=== PATIENT | male | born 1965 | race Caucasian/White ===

== ENCOUNTER → 2016-09-01 | Outpatient (CLI) | payer BC ==
[2016-09-01 12:37] LABS: CHLORIDE,CL 107 mmol/L (98-110); SODIUM,NA 141 mmol/L (136-146)
== END ==
LOC: MW.CHFP 11:59
PROVIDERS: ATTEND Student in an Organized Health Care Education/Training Program
DX: I10 Essential (primary) hypertension (principal); E78.00 Pure hypercholesterolemia, unspecified; Z20.9 Contact with and (suspected) exposure to unspecified communicable disease
CPT/HCPCS: 36415; 80053; 80061; 80074

== ENCOUNTER 2016-11-12 08:53 | Day surgery (SDC) | payer BC ==
[~2016-11-12 08:53] MED LIST: Lactated Ringers 1,000 ML IV SCH; Sodium Chloride 0.9% 10 ML Syringe FLUSH PRN; Sodium Chloride 0.9% 2.5 ML Syringe FLUSH PRN
--- NOTE | 2016-11-12 10:54 | PCM.PREANE ---
Preanesthetic Assessment - Anesthesia/Transfusion/Family Hx Anesthesia History: Prior Anesthesia Without Reaction Family History of Anesthesia Reaction: No Transfusion History: No Prior Transfusion(s) - Review of Systems General: No Symptoms Pulmonary: No Symptoms Cardiovascular: No Symptoms Gastrointestinal: No symptoms Neurological: No Symptoms Other: Reports: None - Physical Assessment NPO Status Date: 11/11/16 O2 Sat by Pulse Oximetry: 95 Respiratory Rate: 14 Vital Signs: Last Vital Signs Temp 36.6 C 11/12/16 10:39 Pulse 63 11/12/16 10:39 Resp 14 11/12/16 10:39 BP 128/91 H 11/12/16 10:39 Pulse Ox 95 11/12/16 10:39 Height: 1.83 m Weight: 105.233 kg ASA Class: 2 Mental Status: Alert & Oriented x3 Airway Class: Mallampati = 2 Dentition: Reports: Missing Tooth/Teeth ROM/Head Extension: Full Lungs: Clear to auscultation, Normal respiratory effort Cardiovascular: Regular Rate, Regular Rhythm - Allergies Allergies/Adverse Reactions: Allergies Allergy/AdvReac Type Severity Reaction Status Date / Time No Known Allergies Allergy Verified 09/19/13 09:56 - Anesthesia Plan Pre-Op Medication Ordered: None - Acknowledgements Anesthesia Type Planned: MAC Pt an Appropriate Candidate for the Planned Anesthesia: Yes Alternatives and Risks of Anesthesia Discussed w Pt/Guardian: Yes Pt/Guardian Understands and Agrees with Anesthesia Plan: Yes PreAnesthesia Questionnaire HEENT History: Reports: Other (See Below) Other HEENT History: wears glasses Cardiovascular History: Reports: High Cholesterol, Hypertension Musculoskeletal History: Reports: Arthritis, Fracture, Gout Other Musculoskeletal History: 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 knee Endocrine/Metabolic History: Reports: Obesity/BMI 30+ - Past Surgical History Head Surgeries/Procedures: Reports: None Musculoskeletal Surgical History: Reports: ORIF (ankle), Other (See Below) ( hand lac with nerve tendon repair) Other Musculoskeletal Surgeries/Procedures:: surgical tx for fx left ankle, left thumb surgery with tendon repair - SUBSTANCE USE Smoking Status *Q: Former Smoker Tobacco Use Within Last Twelve Months: Cigarettes Recreational Drug Use History: No - HOME MEDS Home Medications: Home Meds Allopurinol [Zyloprim] 100 mg PO DAILY 11/09/16 [History] Hydrochlorothiazide 25 mg PO DAILY 11/09/16 [History] Multivitamin [Multivitamins] 1 tab PO DAILY 11/09/16 [History] Simvastatin [Zocor] 20 mg PO DAILY 11/09/16 [History] amLODIPine Besylate [Amlodipine Besylate] 10 mg PO DAILY 11/09/16 [History] - CURRENT (IN HOUSE) MEDS Current Meds: Current Medications Lactated Ringer's (Ringers, Lactated) 1,000 mls @ 125 mls/hr IV ASDIRECTED TINO Sodium Chloride (Saline Flush) 10 ml FLUSH ASDIRECTED PRN PRN Reason: Keep Vein Open Sodium Chloride (Saline Flush) 2.5 ml FLUSH ASDIRECTED PRN PRN Reason: Keep Vein Open
[2016-11-12] MEDS ORDERED: Lidocaine 2% 5 ML SDV ONE (10:56)
[2016-11-12] MEDS ORDERED: Midazolam 1 MG/ML 2 ML SDV ONE (10:57)
[2016-11-12] MEDS ORDERED: Propofol 200 MG/20 ML SDV ONE ×4 (10:57→12:32)
[2016-11-12] MEDS ORDERED: fentaNYL 100 MCG/2 ML SDV ONE (10:57)
--- NOTE | 2016-11-12 12:52 | PCM.OPNOTE ---
- General Post-Op/Procedure Note Date of Surgery/Procedure: 11/12/16 Operative Procedure(s): Screening colonoscopy Findings: 5cm mass at 30-35 cm, 3-4 cm mass at 20-25 cm and one small sessile lesion in descending colon at 40. Small 2-3 mm lesion adjacent to the largest mass. Pre Op Diagnosis: Screening colonoscopy Post-Op Diagnosis: Large polyp of the sigmoid colon x 2, descending colon polyp , sigmoid polyp Anesthesia Technique: MAC Primary Surgeon: Neha Zepeda Condition: Good
--- NOTE | 2016-11-12 13:05 | PCM48HPAN ---
Post Anesthesia Note - EVALUATION WITHIN 48HRS OF ANESTHETIC Vital Signs in Normal Range: Yes Patient Participated in Evaluation: Yes Respiratory Function Stable: Yes Airway Patent: Yes Cardiovascular Function Stable: Yes Hydration Status Stable: Yes Pain Control Satisfactory: Yes Nausea and Vomiting Control Satisfactory: Yes Mental Status Recovered: Yes
--- NOTE | 2016-11-12 13:05 | PCM.POSTAN ---
POST ANESTHESIA ASSESSMENT - MENTAL STATUS Mental Status: alert, oriented - RESPIRATORY Respiratory Status: respiratory rate WNL, airway patent, O2 saturation stable - CARDIOVASCULAR CV Status: pulse rate WNL, blood pressure stable - GASTROINTESTINAL GI Status: no symptoms - PAIN Pain Score: 0 - POST OP HYDRATION Hydration Status: adequate & stable
[2016-11-12 14:30] VITALS: BP 147/95
--- NOTE | 2016-11-13 01:46 | OR ---
SURGEON: KIAN BULLOCK MD DATE OF PROCEDURE: 11/12/2016 PREOPERATIVE DIAGNOSIS: Screening colonoscopy. POSTOPERATIVE DIAGNOSIS: Large sigmoid colon mass x2, descending colon polyp, sigmoid colon polyp. PROCEDURE PERFORMED: Colonoscopy and mass biopsy. ANESTHESIA: MAC. INSTRUMENT USED: Olympus colonoscope. EXTENT OF EXAM: To the cecum. PREPARATION: Good. LIMITATIONS: None. INDICATION FOR EXAMINATION: The patient is a 51-year-old male, who presents for his first time screening colonoscopy. His family history significant for mother who possibly had polyps removed in the past. He is otherwise asymptomatic. We discussed the procedure as well as expected perioperative course. We discussed the risks, including bleeding, infection, and damage to surrounding structures, including perforation. The patient verbalized understanding and wishes to proceed. PROCEDURE IN DETAIL: The patient was brought to the endoscopy suite and placed on a left lateral decubitus position. A time-out was completed verifying the patient's name, age, date of , allergies, and procedure to be performed. Monitored anesthesia care was induced and continuous oxygen was provided via nasal cannula throughout the procedure. After adequate sedation was achieved, a digital rectal exam was performed. This exam was within normal limits. A well lubricated colonoscope was then inserted into the rectum and advanced under direct visualization to the level of the cecum. The cecum was identified by both visual and anatomic landmarks. A photograph was taken of the cecal cap. The scope was then fully withdrawn while examining the color, texture, anatomy, and integrity mucosa from the cecum to the anal canal. The patient had several findings. He had a small sessile polyp within the descending colon. This was removed with a cold biopsy forceps and sent to pathology. It was apparent upon examination of the sigmoid colon that the patient had two large masses. Photographs were taken of these masses. One was noted between 30 and 35 cm. This was large and somewhat pedunculated. Using a hot snare, I was able to get around a large portion of the mass. An approximate 3 cm portion of this mass was able to be snared and cauterized. It was removed from the patient using a Heredia net. The scope was brought back into the patient's and I reexamined the area. It appeared hemostatic. There was a significant portion of the mass left at the base. Given its large size and concerning features, the decision was made to ink the area around this mass and await biopsy results. There were two more smaller polyps around this mass and one of them was biopsied and sent as sigmoid colon polyp. This was removed using a snare as well. At the 20-25 cm, I noted a similar appearing large mass. It was somewhat pedunculated, but had a broad base. Given that the patient would need to undergo either surgery and/or repeat colonoscopy with a colorectal surgeon, the decision was made to not attempt resection at this point in time. The scope was then brought into the rectum and retroflexed to allow visualization of the anal canal opening. This appeared normal. The scope was then straightened out and removed from the patient. The cecum to anus time was greater than 30 minutes. The patient was taken to the PACU in stable condition. A CEA level was drawn, which came back as 1.0. ENDOSCOPIC DIAGNOSIS: Two large sigmoid masses, sigmoid polyp, descending colon polyp. RECOMMENDATIONS: Will closely follow up on the patient's pathology results. Based on these findings, we will determine the next step in treatment. EVER RODRIGUEZ /[id number] EMILIO
== END 2016-11-12 13:50 | disposition home or self-care (01) ==
LOC: MW.SDS 08:53
PROVIDERS: ATTEND Surgery
PROC: 0DBM8ZZ Excision of Descending Colon, Via Natural or Artificial Opening Endoscopic (ICD-10-PCS; principal; 2016-11-12)
PROC: 0DBN8ZZ Excision of Sigmoid Colon, Via Natural or Artificial Opening Endoscopic (ICD-10-PCS; 2016-11-12)
DX: Z12.11 Encounter for screening for malignant neoplasm of colon (principal); D12.4 Benign neoplasm of descending colon; D12.5 Benign neoplasm of sigmoid colon; M19.90 Unspecified osteoarthritis, unspecified site; E78.5 Hyperlipidemia, unspecified; M10.9 Gout, unspecified; I10 Essential (primary) hypertension; E78.00 Pure hypercholesterolemia, unspecified; M17.11 Unilateral primary osteoarthritis, right knee; F17.210 Nicotine dependence, cigarettes, uncomplicated; E66.9 Obesity, unspecified; Z79.899 Other long term (current) drug therapy; Z98.890 Other specified postprocedural states; Z68.31 Body mass index [BMI] 31.0-31.9, adult
CPT/HCPCS: 36415; 45380; 45385; 82378; J2250; J3010; J7120; 88305; J2704

== ENCOUNTER 2017-05-03 10:37 | Inpatient (IN) | payer BC ==
[~2017-05-03 10:37] MED LIST changes: +Acetaminophen 1,000 MG in Premix Bag 1 BAG IV SCH; +Famotidine 20 MG/2 ML SDV IVPUSH SCH; +Ketorolac 30 MG/ML SDV IVPUSH SCH; -Lactated Ringers 1,000 ML IV SCH; +Midazolam 1 MG/ML 2 ML SDV ONE; +Ondansetron 4 MG/2 ML SDV ONE; +Propofol 200 MG/20 ML SDV ONE; +Ropivacaine 49.25 ML, Ketorolac 30 MG, EPINEPHrine 0.5 MG, cloNIDine 80 MCG in Sodium C... INJECT SCH; +Scopolamine 1.5 MG Transdermal Patch TRDERM SCH; -Sodium Chloride 0.9% 10 ML Syringe FLUSH PRN; -Sodium Chloride 0.9% 2.5 ML Syringe FLUSH PRN; +Tranexamic Acid 4,000 MG in Sodium Chloride 0.9% 100 ML IV SCH; +ceFAZolin 2 GM in Premix Bag 1 BAG IV SCH; +diphenhydrAMINE 50 MG/ML SDV ONE; +fentaNYL 100 MCG/2 ML SDV ONE; +oxyCODONE ER 20 MG TAB.ER PO SCH
[2017-05-03] MEDS: Lactated Ringers 1,000 ML IV SCH ×2 (10:59→23:40)
--- NOTE | 2017-05-03 11:46 | PCM.PREANE ---
Preanesthetic Assessment - Procedure Proposed Procedure: Right Total Knee Arthroplasty - Anesthesia/Transfusion/Family Hx Anesthesia History: Prior Anesthesia Without Reaction Family History of Anesthesia Reaction: No Transfusion History: No Prior Transfusion(s) Intubation History: Unknown - Review of Systems General: Other (Pain in lower extremeities) Pulmonary: No Symptoms (former smoker - 3 months ago) Cardiovascular: Other (HTN; Hyperlipidemia; ) Gastrointestinal: Other (GERD - intermittent) Neurological: Gait Disturbance (due to knee and ankle pains) - Physical Assessment NPO Status Date: 05/02/17 NPO Status Time: 23:00 O2 Sat by Pulse Oximetry: 94 Respiratory Rate: 16 Vital Signs: Last Vital Signs Temp 98.2 F 05/03/17 10:56 Pulse 82 05/03/17 10:56 Resp 16 05/03/17 10:56 BP 131/86 05/03/17 10:56 Pulse Ox 94 L 05/03/17 10:56 Height: 6 ft Weight: 262 lb ASA Class: 2 Mental Status: Alert & Oriented x3 Airway Class: Mallampati = 1 Dentition: Reports: Missing Tooth/Teeth (only a few lowers are present - recently pulled in anticipation of dentures next year) Thyro-Mental Finger Breadths: 3 Mouth Opening Finger Breadths: 3 (bearded, brush moustache) - Allergies Allergies/Adverse Reactions: Allergies Allergy/AdvReac Type Severity Reaction Status Date / Time No Known Allergies Allergy Verified 05/03/17 11:05 - Anesthesia Plan Pre-Op Medication Ordered: Other (per surgeon) - Acknowledgements Anesthesia Type Planned: Spinal Pt an Appropriate Candidate for the Planned Anesthesia: Yes Alternatives and Risks of Anesthesia Discussed w Pt/Guardian: Yes Pt/Guardian Understands and Agrees with Anesthesia Plan: Yes PreAnesthesia Questionnaire HEENT History: Reports: Other (See Below) Other HEENT History: wears glasses Cardiovascular History: Reports: High Cholesterol, Hypertension Gastrointestinal History: Reports: None Genitourinary History: Reports: None Musculoskeletal History: Reports: Arthritis, Fracture, Gout Other Musculoskeletal History: 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 knee, Endocrine/Metabolic History: Reports: Obesity/BMI 30+ - Past Surgical History Head Surgeries/Procedures: Reports: None GI Surgical History: Reports: Colonoscopy Musculoskeletal Surgical History: Reports: ORIF, Other (See Below) Other Musculoskeletal Surgeries/Procedures:: surgical tx for fx left ankle, left thumb surgery with tendon repair - SUBSTANCE USE Smoking Status *Q: Former Smoker Tobacco Use Within Last Twelve Months: Cigarettes Recreational Drug Use History: No - HOME MEDS Home Medications: Home Meds Allopurinol [Zyloprim] 100 mg PO DAILY 11/09/16 [History] Hydrochlorothiazide 25 mg PO DAILY 11/09/16 [History] Simvastatin [Zocor] 20 mg PO DAILY 11/09/16 [History] amLODIPine Besylate [Amlodipine Besylate] 10 mg PO DAILY 11/09/16 [History] - CURRENT (IN HOUSE) MEDS Current Meds: Current Medications Famotidine (Pepcid) 40 mg IVPUSH ONARRIVE TINO Stop: 05/03/17 14:01 Last Admin: 05/03/17 11:01 Dose: 40 mg Acetaminophen 1,000 mg/ Premix 100 mls @ 400 mls/hr IV ONARRIVE TINO Stop: 05/03/17 14:01 Last Admin: 05/03/17 11:04 Dose: 400 mls/hr Cefazolin Sodium/Dextrose 2 gm (/ Premix) 50 mls @ 100 mls/hr IV ONCALL TINO Stop: 05/03/17 14:01 Lactated Ringer's (Ringers, Lactated) 1,000 mls @ 100 mls/hr IV ASDIRECTED TINO Last Admin: 05/03/17 10:59 Dose: 100 mls/hr Tranexamic Acid 4,000 mg/ (Sodium Chloride) 140 mls @ 600 mls/hr IV ASDIRECTED TINO Stop: 05/03/17 14:01 Ropivacaine 49.25 ml/Ketorolac Tromethamine 30 mg/Epinephrine HCl 0.5 mg/ Clonidine HCl 80 mcg/ Sodium Chloride 100 mls @ 2,975.207 mls/hr INJECT ASDIRECTED TINO Stop: 05/03/17 14:01 Ketorolac Tromethamine (Toradol) 30 mg IVPUSH ONARRIVE TINO Stop: 05/03/17 14:01 Last Admin: 05/03/17 11:02 Dose: 30 mg Oxycodone HCl (Oxycontin) 20 mg PO ONARRIVE TINO Stop: 05/03/17 14:01 Last Admin: 05/03/17 10:59 Dose: 20 mg Scopolamine (Transderm-Scop) 1.5 mg TRDERM ONARRIVE TINO Last Admin: 05/03/17 10:59 Dose: 1.5 mg Discontinued Medications Diphenhydramine HCl (Benadryl) Confirm Administered Dose 50 mg .ROUTE .STK-MED ONE Stop: 05/03/17 10:08 Fentanyl (Sublimaze) Confirm Administered Dose 100 mcg .ROUTE .STK-MED ONE Stop: 05/03/17 10:09 Ropivacaine 49.25 ml/Ketorolac Tromethamine 30 mg/Epinephrine HCl 0.5 mg/ Clonidine HCl 80 mcg/ Sodium Chloride 100 mls @ 50 mls/min INJECT ASDIRECTED [facility] Stop: 05/03/17 14:01 Midazolam HCl (Versed 1 Mg/Ml) Confirm Administered Dose 2 mg .ROUTE .STK-MED ONE Stop: 05/03/17 10:09 Ondansetron HCl (Zofran) Confirm Administered Dose 4 mg .ROUTE .STK-MED ONE Stop: 05/03/17 10:08 Propofol (Diprivan 20 Ml) Confirm Administered Dose 800 mg .ROUTE .STK-MED ONE Stop: 05/03/17 10:08 Tranexamic Acid (Cyklokapron) Confirm Administered Dose 4,000 mg .ROUTE .STK- MED ONE Stop: 05/03/17 07:21
[2017-05-03] MEDS ORDERED: ePHEDrine 50 MG/ML SDV ONE (13:09)
[2017-05-03] MEDS ORDERED: Ondansetron 4 MG/2 ML SDV IV PRN (14:20)
[2017-05-03] MEDS ORDERED: HYDROmorphone 2 MG/ML Syringe IVPUSH PRN (14:20)
[2017-05-03] MEDS ORDERED: Aluminum Hydroxide/Magnesium Hydroxide/Simethicone Susp 30 ML Cup PO PRN (14:20)
[2017-05-03] MEDS ORDERED: Bisacodyl 10 MG Supp RECTAL PRN (14:20)
[2017-05-03] MEDS ORDERED: diphenhydrAMINE 25 MG Cap PO PRN (14:20)
--- NOTE | 2017-05-03 14:34 | PCM.OPNOTE ---
- General Post-Op/Procedure Note Date of Surgery/Procedure: 05/03/17 Operative Procedure(s): R TKA Post-Op Diagnosis: DJD R knee Anesthesia Technique: Moderate Sedation, Spinal Primary Surgeon: Phyllis Jorge Car Trimmer: Chandni Cosme Car Trimmer: Marin Gaspar EBAmna in mLs: 50 Condition: Good Free Text/Narrative:: tt=45 min #[id number] Intake & Output 05/02/17 05/03/17 05/03/17 22:59 06:59 14:59 Output Total 125 Balance -125
--- NOTE | 2017-05-03 15:35 | PCM.POSTAN ---
POST ANESTHESIA ASSESSMENT - MENTAL STATUS Mental Status: Alert, Oriented - RESPIRATORY Respiratory Status: Respiratory Rate WNL, Airway Patent, O2 Saturation Stable - CARDIOVASCULAR CV Status: Pulse Rate WNL, Blood Pressure Stable - GASTROINTESTINAL GI Status: No Symptoms - PAIN Pain Score: 0 (able to move feet and sense knee) - POST OP HYDRATION Hydration Status: Adequate & Stable
[2017-05-03] MEDS: Acetaminophen 1,000 MG in Premix Bag 1 BAG IV SCH ×2 (17:24→23:17)
[2017-05-03] MEDS: oxyCODONE 5 MG Tab PO PRN (18:14)
--- NOTE | 2017-05-03 19:15 | OR ---
SURGEON: Phyllis Jorge MD DATE OF PROCEDURE: 05/03/2017 PREOPERATIVE DIAGNOSIS: Degenerative joint disease, right knee, tricompartmental. POSTOPERATIVE DIAGNOSIS: Degenerative joint disease, right knee, tricompartmental. PROCEDURE: Right total knee arthroplasty using patient-specific instrumentation. RECYCLING CENTER OPERATOR: Chandni Cosme PA-C and Marin Gaspar PA-C. ANESTHESIA: Spinal with sedation. ESTIMATED BLOOD LOSS: 50 mL. TOURNIQUET TIME: 45 minutes. COMPLICATIONS: None. DVT PROPHYLAXIS: PAS boot and MARIBEL hose to the nonoperative leg. IMPLANTS USED: Flavia Persona femoral component size 12 standard (LPS), tibial component size J, 10 mm all-polyethylene articular surface, and 38 mm all-polyethylene patella. FINDINGS: Intraoperative finding showed severe tricompartmental degenerative joint disease with osteophyte formation. 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 No significant synovitis was found. BRIEF HISTORY: Garret is a 52-year-old male, who has had complaint of progressive right knee pain. He had failed conservative treatment. Due to his lack of response to conservative treatment, I did recommend surgical intervention. The risks and goals of procedure were discussed with the patient and documented preoperatively. He agreed to proceed. DESCRIPTION OF PROCEDURE: The patient was properly identified and brought to the operating room. The patient was then transferred from the operating room cart and placed on the operating table in a supine position. Anesthesia was administered by the anesthesia staff. After adequate anesthesia was obtained, a well-padded tourniquet was applied to the surgical lower extremity. Peters catheter was placed. The lower extremity was then prepped in standard fashion using ChloraPrep solution. It was then sterilely draped. A time-out was performed to ensure correct site and procedure. Preoperative antibiotics were given along with one gram of tranexamic acid IV. The surgical site had been marked preoperatively. An Esmarch was used to exsanguinate the right lower extremity and the tourniquet was inflated. An incision was made over the anterior aspect of the knee. The subcutaneous tissues were dissected down to the level of the fascia. A medial parapatellar approach to the knee was made. A portion of the infrapatellar fat pad was then excised. The distal femur was then exposed. The femoral patient-specific cutting guide was then placed. Pins were also placed. The distal femoral cutting block was placed and the distal femoral cut was made. Instrumentation was then removed. Both Whitesides' line and the epicondylar axis were then marked with electrocautery. The 4-in-1 cutting block was placed. This was placed in a slightly externally rotated position, which corresponded well with the previously drawn lines. The cutting guide was then pinned into position. An Yeison wing guide was used to check the depth of resection of our anterior condylar cut and it was felt that no notching would occur. The anterior condylar cut was then made followed by the posterior condylar cut. Both the posterior chamfer and anterior chamfer cuts were then made. The cutting block was then removed along with the excess bony remnants. We then turned our attention to the tibia. The anterior cruciate ligament and posterior cruciate ligament were released and a posterior cruciate ligament retractor was placed to allow the tibia to be pulled anteriorly. The tibial patient-specific guide was then placed on the proximal tibia. This fit anatomically. The pins were then placed. The proximal tibia cutting guide was then placed and screwed into position. The proximal tibial resection was then made with care being taken to protect the patellar tendon. The bony resection was then removed. The remainder of the medial and lateral meniscus were then excised. Care was taken to protect the popliteus tendon. The tibia was then sized to the appropriate size. The distal femur was then elevated. The posterior capsule was stripped off of the distal femur both medially and laterally. The posterior capsule along with the medial and lateral gutters were then injected with a standard mixture consisting of clonidine, epinephrine, Toradol, and Ropivacaine, unless any allergies were found preoperatively. The femoral component was then placed onto the distal femur in a slightly lateral position. This fit the femur well. A box cut was then made without difficulty. This was then removed. The tibial trial along with the polyethylene liner was then placed. The knee came easily into full extension and was stable to varus and valgus stressing both in full extension and flexion. Any additional releases were performed at this time. We then returned our attention to the patella. The patella was everted and towel clamps were used to hold the patella in position. It was resected to a 15 millimeter thickness. It was then sized to the appropriate size. It was prepared in the usual fashion after placing the predetermined size clamps. This was placed in a slightly superior and medial position. The clamp was then removed. The patellar trial button was placed. The knee was taken through a range of motion using the no-touch technique. The patella tracked centrally. A drop sol was then placed to check alignment. All instruments were then removed from the knee. The tibial sizer was then placed on the tibia. The tibia was prepared in the usual fashion using the reamer and broach. This was then removed. All bony surfaces were copiously irrigated with Pulsavac solution. They were then suctioned dry. Cement was prepared on the back table in the usual manner. Once it was prepared, the bone ends were again suctioned dry. The tibia was cemented into place first. This was malleted into position. Excess cement was then cleared. The femur was then placed in a similar manner. We placed the polyethylene trial into place and the knee was brought into full extension. An axial load was placed while keeping the knee in full extension. The patella button was also cemented into position and the clamp was used to hold this in place as the cement was allowed to cure. The wound was again copiously irrigated with saline solution using a Pulsavac engineering clerk. Following this 1 g of tranexamic acid was applied to the wound topically. After we had adequate curing of the cement, the knee was again taken through a range of motion. The size of the polyethylene was then determined. The polyethylene trial was then removed. The tibial tray was suctioned to make sure there was no remaining soft tissue or cement. Excess cement was cleared from around the edges of the prosthesis as well. The tourniquet was then deflated. We were able to observe for any excess bleeding and none was noted. Electrocautery was used to maintain hemostasis. An additional gram of tranexamic acid was given IV. The retractors were again placed and the predetermined polyethylene was then placed. This was locked into position without difficulty. The knee was again taken through a range of motion with no change from the prior exam. The fascial layer was closed with Number One Vicryl. The subcutaneous tissues were closed with 2-0 Vicryl. The skin was closed with nubia. Xeroform gauze was placed over the wound and a bulky dressing was applied. The patient was then awakened from anesthesia and transferred back to the operating room cart. They were brought to the recovery room in stable condition. All needle and sponge counts were correct. STEPHEN / MODL /[id number]
[2017-05-03] MEDS: Ketorolac 30 MG/ML SDV IVPUSH SCH (20:04)
[2017-05-03] MEDS: oxyCODONE ER 20 MG TAB.ER PO SCH (21:05)
[2017-05-03] MEDS: ceFAZolin 2 GM in Premix Bag 1 BAG IV SCH (21:05)
[2017-05-03] MEDS: Docusate Sodium 100 MG Cap PO SCH (21:05)
[2017-05-04] MEDS: Ketorolac 30 MG/ML SDV IVPUSH SCH (02:21)
[2017-05-04] MEDS ORDERED: Non-Formulary Medication 1 Each (Amlodipine 10 MG) PO SCH (09:00)
[2017-05-04] MEDS: Acetaminophen 500 MG Tab PO SCH ×4 (14:54→23:14)
[2017-05-04] MEDS: ceFAZolin 2 GM in Premix Bag 1 BAG IV SCH (14:55)
[2017-05-04] MEDS: Celecoxib 100 MG Cap PO SCH ×2 (14:56→20:11)
[2017-05-04] MEDS: Aspirin 325 MG Tab PO SCH ×2 (14:56→20:10)
[2017-05-04] MEDS: Hydrochlorothiazide 25 MG Tab PO SCH (14:56)
[2017-05-04] MEDS: Docusate Sodium 100 MG Cap PO SCH ×2 (14:56→20:11)
[2017-05-04] MEDS: Simvastatin 20 MG Tab PO SCH (14:57)
[2017-05-04] MEDS: oxyCODONE ER 20 MG TAB.ER PO SCH ×2 (14:57→20:12)
[2017-05-04] MEDS: Allopurinol 100 MG Tab PO SCH (14:57)
[2017-05-04] MEDS: Famotidine 20 MG Tab PO SCH (14:57)
[2017-05-04] MEDS ORDERED: Sodium Chloride 0.9% 10 ML Syringe FLUSH PRN (15:22)
[2017-05-04] MEDS ORDERED: Sodium Chloride 0.9% 2.5 ML Syringe FLUSH PRN (15:22)
[2017-05-04] MEDS: oxyCODONE 5 MG Tab PO PRN (16:04)
--- NOTE | 2017-05-04 17:39 | PCM.SURGPN ---
- General Info Date of Service: 05/04/17 Date of Surgery/Procedure: 05/03/17 POD#: 1 Functional Status: Reports: Pain Controlled, Tolerating Diet, Ambulating, Urinating - Review of Systems General: Reports: No Symptoms Pulmonary: Reports: No Symptoms Cardiovascular: Reports: No Symptoms Gastrointestinal: Reports: No Symptoms Systems Review Comment:: pt resting comfortably in bed pain controlled has been OOB ambulating no specific concerns today - Patient Data Vitals - Most Recent: Last Vital Signs Temp 98.2 F 05/04/17 05:00 Pulse 76 05/04/17 05:00 Resp 16 05/04/17 05:00 BP 132/76 05/04/17 05:00 Pulse Ox 93 L 05/04/17 05:00 Weight - Most Recent: 118.841 kg I&O - Last 24 Hours: Intake & Output 05/04/17 05/04/17 05/04/17 06:59 14:59 22:59 Intake Total 1099 Balance 1099 Med Orders - Current: Current Medications Acetaminophen (Tylenol Extra Strength) 1,000 mg PO Q6H [facility] Last Admin: 05/04/17 14:55 Dose: Not Given Al Hydroxide/Mg Hydroxide (Mag-Al Plus) 30 ml PO Q4H PRN PRN Reason: indigestion Allopurinol (Zyloprim) 100 mg PO DAILY [facility] Last Admin: 05/04/17 14:57 Dose: Not Given Aspirin (Aspirin) 325 mg PO BID [facility] Last Admin: 05/04/17 14:56 Dose: Not Given Bisacodyl (Dulcolax) 10 mg RECTAL DAILY PRN PRN Reason: Constipation Celecoxib (Celebrex) 200 mg PO BID [facility] Last Admin: 05/04/17 14:56 Dose: Not Given Diphenhydramine HCl (Benadryl) 25 - 50 mg PO Q6H PRN PRN Reason: Itching Docusate Sodium (Colace) 100 mg PO BID [facility] Last Admin: 05/04/17 14:56 Dose: Not Given Famotidine (Pepcid) 40 mg PO DAILY [facility] Last Admin: 05/04/17 14:57 Dose: Not Given Hydrochlorothiazide (Hydrochlorothiazide) 25 mg PO DAILY [facility] Last Admin: 05/04/17 14:56 Dose: Not Given Hydromorphone HCl (Dilaudid) 0.5 - 1 mg IVPUSH Q3H PRN PRN Reason: Pain Lactated Ringer's (Ringers, Lactated) 1,000 mls @ 100 mls/hr IV ASDIRECTED [facility] Last Admin: 05/03/17 23:40 Dose: 100 mls/hr Cefazolin Sodium/Dextrose 2 gm (/ Premix) 50 mls @ 100 mls/hr IV Q8H [facility] Stop: 05/04/17 05:59 Last Admin: 05/04/17 14:55 Dose: Not Given Non-Formulary Medication (Amlodipine) 10 mg PO DAILY [facility] Last Admin: 05/04/17 14:55 Dose: Not Given Ondansetron HCl (Zofran) 4 mg IV Q6HR PRN PRN Reason: NAUSEA/VOMITING Oxycodone HCl (Oxycodone) 5 - 10 mg PO Q4H PRN PRN Reason: Pain Last Admin: 05/03/17 18:14 Dose: 10 mg Oxycodone HCl (Oxycontin) 20 mg PO Q12HR [facility] Last Admin: 05/04/17 14:57 Dose: Not Given Scopolamine (Transderm-Scop) 1.5 mg TRDERM ONARRIVE [facility] Last Admin: 05/03/17 10:59 Dose: 1.5 mg Simvastatin (Zocor) 20 mg PO DAILY [facility] Last Admin: 05/04/17 14:57 Dose: Not Given Discontinued Medications Diphenhydramine HCl (Benadryl) Confirm Administered Dose 50 mg .ROUTE .STK-MED ONE Stop: 05/03/17 10:08 Ephedrine Sulfate (Ephedrine Sulfate) Confirm Administered Dose 50 mg .ROUTE .STK-MED ONE Stop: 05/03/17 13:10 Famotidine (Pepcid) 40 mg IVPUSH ONARRIVE [facility] Stop: 05/03/17 14:01 Last Admin: 05/03/17 11:01 Dose: 40 mg Fentanyl (Sublimaze) Confirm Administered Dose 100 mcg .ROUTE .STK-MED ONE Stop: 05/03/17 10:09 Acetaminophen 1,000 mg/ Premix 100 mls @ 400 mls/hr IV ONARRIVE [facility] Stop: 05/03/17 14:01 Last Admin: 05/03/17 11:04 Dose: 400 mls/hr Cefazolin Sodium/Dextrose 2 gm (/ Premix) 50 mls @ 100 mls/hr IV ONCALL [facility] Stop: 05/03/17 14:01 Ropivacaine 49.25 ml/Ketorolac Tromethamine 30 mg/Epinephrine HCl 0.5 mg/ Clonidine HCl 80 mcg/ Sodium Chloride 100 mls @ 50 mls/min INJECT ASDIRECTED [facility] Stop: 05/03/17 14:01 Tranexamic Acid 4,000 mg/ (Sodium Chloride) 140 mls @ 600 mls/hr IV ASDIRECTED [facility] Stop: 05/03/17 14:01 Ropivacaine 49.25 ml/Ketorolac Tromethamine 30 mg/Epinephrine HCl 0.5 mg/ Clonidine HCl 80 mcg/ Sodium Chloride 100 mls @ 2,975.207 mls/hr INJECT ASDIRECTED [facility] Stop: 05/03/17 14:01 Acetaminophen 1,000 mg/ Premix 100 mls @ 400 mls/hr IV Q6H [facility] Stop: 05/03/17 23:14 Last Admin: 05/03/17 23:17 Dose: 400 mls/hr Ketorolac Tromethamine (Toradol) 30 mg IVPUSH ONARRIVE [facility] Stop: 05/03/17 14:01 Last Admin: 05/03/17 11:02 Dose: 30 mg Ketorolac Tromethamine (Toradol) 30 mg IVPUSH Q6H [facility] Stop: 05/04/17 04:00 Last Admin: 05/04/17 02:21 Dose: 30 mg Midazolam HCl (Versed 1 Mg/Ml) Confirm Administered Dose 2 mg .ROUTE .STK-MED ONE Stop: 05/03/17 10:09 Ondansetron HCl (Zofran) Confirm Administered Dose 4 mg .ROUTE .STK-MED ONE Stop: 05/03/17 10:08 Oxycodone HCl (Oxycontin) 20 mg PO ONARRIVE [facility] Stop: 05/03/17 14:01 Last Admin: 05/03/17 10:59 Dose: 20 mg Propofol (Diprivan 20 Ml) Confirm Administered Dose 800 mg .ROUTE .STK-MED ONE Stop: 05/03/17 10:08 Tranexamic Acid (Cyklokapron) Confirm Administered Dose 4,000 mg .ROUTE .STK- MED ONE Stop: 05/03/17 07:21 - Exam Wound/Incisions: Dressing Dry and Intact General: Alert, Oriented Extremities: Other (exam RLE - at/ehl/gastroc 5/5, dp 2+, sensation intact distally) Physical Findings Comment:: vss, afeb hgb 13.3 - Problem List Review Problem List Initiated/Reviewed/Updated: Yes - My Orders Last 24 Hours: Active Orders 24 hr Category Date Time Status Activity as Tolerated [RC] .Routine Care 05/03/17 14:19 Active Dressing Change [Wound Care] [RC] Q12H Care 05/03/17 14:20 Active Intake and Output [RC] Q12H Care 05/03/17 14:19 Active Neurovascular Check [RC] Q2HR Care 05/03/17 14:19 Active Notify Provider Vital Signs [RC] ASDIRECTED Care 05/03/17 14:19 Active RT Incentive Spirometry [RC] ASDIRECTED Care 05/03/17 14:19 Active Vital Signs [RC] Q4H Care 05/03/17 14:19 Active PT Evaluation and Treatment [CONS] Routine Cons 05/03/17 14:19 Active HEMOGLOBIN/HEMATOCRIT,HH [HEME] DAILY Lab 05/04/17 06:00 Ordered HEMOGLOBIN/HEMATOCRIT,HH [HEME] DAILY Lab 05/05/17 06:00 Ordered HEMOGLOBIN/HEMATOCRIT,HH [HEME] DAILY Lab 05/06/17 06:00 Ordered Acetaminophen [Tylenol Extra Strength] Med 05/04/17 05:00 Active 1,000 mg PO Q6H Allopurinol [Zyloprim] Med 05/04/17 09:00 Active 100 mg PO DAILY [facility] Hydrox/Mag Hydrox/Simeth [Mag-Al Plus] Med 05/03/17 14:20 Active 30 ml PO Q4H PRN Aspirin Med 05/04/17 09:00 Active 325 mg PO BID Bisacodyl [Dulcolax] Med 05/03/17 14:20 Active 10 mg RECTAL DAILY PRN Celecoxib [CeleBREX] Med 05/04/17 09:00 Active 200 mg PO BID Docusate Sodium [Colace] Med 05/03/17 21:00 Active 100 mg PO BID Famotidine [Pepcid] Med 05/04/17 09:00 Active 40 mg PO DAILY HYDROmorphone [Dilaudid] Med 05/03/17 14:20 Active 0.5 - 1 mg IVPUSH Q3H PRN Hydrochlorothiazide Med 05/04/17 09:00 Active 25 mg PO DAILY Ondansetron [Zofran] Med 05/03/17 14:20 Active 4 mg IV Q6HR PRN Simvastatin [Zocor] Med 05/04/17 09:00 Active 20 mg PO DAILY amLODIPine Med 05/04/17 09:00 Active 10 mg PO DAILY ceFAZolin [Ancef] 2 gm Med 05/03/17 21:30 Active Premix Bag 1 bag IV Q8H diphenhydrAMINE [Benadryl] Med 05/03/17 14:20 Active 25 - 50 mg PO Q6H PRN oxyCODONE Med 05/03/17 14:20 Active 5 - 10 mg PO Q4H PRN oxyCODONE ER [OxyCONTIN] Med 05/03/17 21:00 Active 20 mg PO Q12HR Ice Therapy [OM.PC] Routine Oth 05/03/17 14:19 Ordered Medication Orders Acetaminophen (Tylenol Extra Strength) 1,000 mg PO Q6H [facility] Last Admin: 05/04/17 14:55 Dose: Admin: 05/04/17 14:54 Dose: Al Hydroxide/Mg Hydroxide (Mag-Al Plus) 30 ml PO Q4H PRN PRN Reason: indigestion Allopurinol (Zyloprim) 100 mg PO DAILY [facility] Last Admin: 05/04/17 14:57 Dose: Aspirin (Aspirin) 325 mg PO BID [facility] Last Admin: 05/04/17 14:56 Dose: Bisacodyl (Dulcolax) 10 mg RECTAL DAILY PRN PRN Reason: Constipation Celecoxib (Celebrex) 200 mg PO BID [facility] Last Admin: 05/04/17 14:56 Dose: Diphenhydramine HCl (Benadryl) 25 - 50 mg PO Q6H PRN PRN Reason: Itching Docusate Sodium (Colace) 100 mg PO BID [facility] Last Admin: 05/04/17 14:56 Dose: Admin: 05/03/17 21:05 Dose: 100 mg Famotidine (Pepcid) 40 mg PO DAILY [facility] Last Admin: 05/04/17 14:57 Dose: Hydrochlorothiazide (Hydrochlorothiazide) 25 mg PO DAILY [facility] Last Admin: 05/04/17 14:56 Dose: Hydromorphone HCl (Dilaudid) 0.5 - 1 mg IVPUSH Q3H PRN PRN Reason: Pain Lactated Ringer's (Ringers, Lactated) 1,000 mls @ 100 mls/hr IV ASDIRECTED [facility] Last Admin: 05/03/17 23:40 Dose: 100 mls/hr Infusion: 05/03/17 20:59 Dose: 100 mls/hr Admin: 05/03/17 10:59 Dose: 100 mls/hr Cefazolin Sodium/Dextrose 2 gm (/ Premix) 50 mls @ 100 mls/hr IV Q8H [facility] Stop: 05/04/17 05:59 Last Admin: 05/04/17 14:55 Dose: Admin: 05/03/17 21:05 Dose: 100 mls/hr Non-Formulary Medication (Amlodipine) 10 mg PO DAILY [facility] Last Admin: 05/04/17 14:55 Dose: Ondansetron HCl (Zofran) 4 mg IV Q6HR PRN PRN Reason: NAUSEA/VOMITING Oxycodone HCl (Oxycodone) 5 - 10 mg PO Q4H PRN PRN Reason: Pain Last Admin: 05/03/17 18:14 Dose: 10 mg Oxycodone HCl (Oxycontin) 20 mg PO Q12HR [facility] Last Admin: 05/04/17 14:57 Dose: Admin: 05/03/17 21:05 Dose: 20 mg Scopolamine (Transderm-Scop) 1.5 mg TRDERM ONARRIVE [facility] Last Admin: 05/03/17 10:59 Dose: 1.5 mg Simvastatin (Zocor) 20 mg PO DAILY [facility] Last Admin: 05/04/17 14:57 Dose: - Assessment Assessment (Free Text/Narrative):: POD#1 R TKA - Plan Plan (Free Text/Narrative):: DC IV fluids DC plaza PT today ASA 325mg PO BID as dvt prophylaxis dressing changed this afternoon, moderate serosanguinous drainage from distal aspect of incision new pressure dressing with post-op sponges, ABD, and HARRIS wrap applied. reinforce dressing PRN will keep overnight for pain control, wound care, and PT
--- NOTE | 2017-05-04 17:40 | PCM.SN ---
- Free Text/Narrative Note: Patient seen and examined. Progressing with PT. Pain controlled. Hgb stable. VSS, afeb Incision clean. Sanguinous drainage from distal incision--reinforced with new dressing. No calf TTP. NVI. POD #1 1. ASA for DVT prophylaxis 2. continue PT 3. plan discharge home tomorrow 4. reinforce dressing prn
--- NOTE | 2017-05-04 18:19 | CR ---
EXAMINATION: Right knee HISTORY: Arthroplasty COMPARISON: 04/06/2017 TECHNIQUE: 2 views FINDINGS/IMPRESSION: Right total knee hardware is demonstrated in good position and alignment. Postop erative soft tissue changes are noted.
[2017-05-05] MEDS: Acetaminophen 500 MG Tab PO SCH (05:08)
[2017-05-05] MEDS: oxyCODONE 5 MG Tab PO PRN (07:09)
[2017-05-05] MEDS: Famotidine 20 MG Tab PO SCH (08:11)
[2017-05-05] MEDS: Hydrochlorothiazide 25 MG Tab PO SCH (08:11)
[2017-05-05] MEDS: Docusate Sodium 100 MG Cap PO SCH (08:11)
[2017-05-05] MEDS: oxyCODONE ER 20 MG TAB.ER PO SCH (08:12)
[2017-05-05] MEDS: Aspirin 325 MG Tab PO SCH (08:12)
[2017-05-05] MEDS: Celecoxib 100 MG Cap PO SCH (08:12)
[2017-05-05] MEDS: Simvastatin 20 MG Tab PO SCH (08:12)
[2017-05-05 08:16] VITALS: BP 127/79
[2017-05-05] MEDS ORDERED: amLODIPine 5 MG Tab PO SCH (08:30)
--- NOTE | 2017-05-05 09:02 | PCM.SURGPN ---
- General Info Date of Service: 05/05/17 Date of Surgery/Procedure: 05/03/17 POD#: 2 Functional Status: Reports: Pain Controlled, Tolerating Diet, Ambulating, Urinating - Review of Systems General: Reports: No Symptoms Pulmonary: Reports: No Symptoms Cardiovascular: Reports: No Symptoms Gastrointestinal: Reports: No Symptoms Musculoskeletal: Reports: Leg Pain Systems Review Comment:: pt resting comfortably in bed pain controlled today pt has arranged transportation home no concerns - Patient Data Vitals - Most Recent: Last Vital Signs Temp 97.9 F 05/05/17 08:00 Pulse 85 05/05/17 08:00 Resp 18 05/05/17 08:00 BP 127/79 05/05/17 08:00 Pulse Ox 94 L 05/05/17 08:00 Weight - Most Recent: 118.841 kg I&O - Last 24 Hours: Intake & Output 05/04/17 05/05/17 05/05/17 22:59 06:59 14:59 Intake Total 2440 1040 Output Total 900 1350 Balance 1540 -310 Lab Results Last 24 Hrs: Laboratory Results - last 24 hr 05/04/17 05/05/17 Range/Units 06:27 06:20 Hgb 13.3 13.0 (13.0-17.0) g/dL Hct 38.9 37.3 L (38.0-50.0) % Med Orders - Current: Current Medications Acetaminophen (Tylenol Extra Strength) 1,000 mg PO Q6H [facility] Last Admin: 05/05/17 05:08 Dose: 1,000 mg Al Hydroxide/Mg Hydroxide (Mag-Al Plus) 30 ml PO Q4H PRN PRN Reason: indigestion Allopurinol (Zyloprim) 100 mg PO DAILY [facility] Last Admin: 05/04/17 14:57 Dose: Not Given Amlodipine Besylate (Norvasc) 10 mg PO DAILY [facility] Aspirin (Aspirin) 325 mg PO BID [facility] Last Admin: 05/05/17 08:12 Dose: 325 mg Bisacodyl (Dulcolax) 10 mg RECTAL DAILY PRN PRN Reason: Constipation Celecoxib (Celebrex) 200 mg PO BID [facility] Last Admin: 05/05/17 08:12 Dose: 200 mg Diphenhydramine HCl (Benadryl) 25 - 50 mg PO Q6H PRN PRN Reason: Itching Docusate Sodium (Colace) 100 mg PO BID [facility] Last Admin: 05/05/17 08:11 Dose: 100 mg Famotidine (Pepcid) 40 mg PO DAILY [facility] Last Admin: 05/05/17 08:11 Dose: 40 mg Hydrochlorothiazide (Hydrochlorothiazide) 25 mg PO DAILY [facility] Last Admin: 05/05/17 08:11 Dose: 25 mg Hydromorphone HCl (Dilaudid) 0.5 - 1 mg IVPUSH Q3H PRN PRN Reason: Pain Lactated Ringer's (Ringers, Lactated) 1,000 mls @ 100 mls/hr IV ASDIRECTED [facility] Last Admin: 05/03/17 23:40 Dose: 100 mls/hr Ondansetron HCl (Zofran) 4 mg IV Q6HR PRN PRN Reason: NAUSEA/VOMITING Oxycodone HCl (Oxycodone) 5 - 10 mg PO Q4H PRN PRN Reason: Pain Last Admin: 05/05/17 07:09 Dose: 10 mg Oxycodone HCl (Oxycontin) 20 mg PO Q12HR [facility] Last Admin: 05/05/17 08:12 Dose: 20 mg Scopolamine (Transderm-Scop) 1.5 mg TRDERM ONARRIVE [facility] Last Admin: 05/03/17 10:59 Dose: 1.5 mg Simvastatin (Zocor) 20 mg PO DAILY [facility] Last Admin: 05/05/17 08:12 Dose: 20 mg Sodium Chloride (Saline Flush) 10 ml FLUSH ASDIRECTED PRN PRN Reason: Keep Vein Open Sodium Chloride (Saline Flush) 2.5 ml FLUSH ASDIRECTED PRN PRN Reason: Keep Vein Open Discontinued Medications Diphenhydramine HCl (Benadryl) Confirm Administered Dose 50 mg .ROUTE .STK-MED ONE Stop: 05/03/17 10:08 Ephedrine Sulfate (Ephedrine Sulfate) Confirm Administered Dose 50 mg .ROUTE .STK-MED ONE Stop: 05/03/17 13:10 Famotidine (Pepcid) 40 mg IVPUSH ONARRIVE [facility] Stop: 05/03/17 14:01 Last Admin: 05/03/17 11:01 Dose: 40 mg Fentanyl (Sublimaze) Confirm Administered Dose 100 mcg .ROUTE .STK-MED ONE Stop: 05/03/17 10:09 Acetaminophen 1,000 mg/ Premix 100 mls @ 400 mls/hr IV ONARRIVE [facility] Stop: 05/03/17 14:01 Last Admin: 05/03/17 11:04 Dose: 400 mls/hr Cefazolin Sodium/Dextrose 2 gm (/ Premix) 50 mls @ 100 mls/hr IV ONCALL [facility] Stop: 05/03/17 14:01 Ropivacaine 49.25 ml/Ketorolac Tromethamine 30 mg/Epinephrine HCl 0.5 mg/ Clonidine HCl 80 mcg/ Sodium Chloride 100 mls @ 50 mls/min INJECT ASDIRECTED [facility] Stop: 05/03/17 14:01 Tranexamic Acid 4,000 mg/ (Sodium Chloride) 140 mls @ 600 mls/hr IV ASDIRECTED [facility] Stop: 05/03/17 14:01 Ropivacaine 49.25 ml/Ketorolac Tromethamine 30 mg/Epinephrine HCl 0.5 mg/ Clonidine HCl 80 mcg/ Sodium Chloride 100 mls @ 2,975.207 mls/hr INJECT ASDIRECTED [facility] Stop: 05/03/17 14:01 Acetaminophen 1,000 mg/ Premix 100 mls @ 400 mls/hr IV Q6H [facility] Stop: 05/03/17 23:14 Last Admin: 05/03/17 23:17 Dose: 400 mls/hr Cefazolin Sodium/Dextrose 2 gm (/ Premix) 50 mls @ 100 mls/hr IV Q8H [facility] Stop: 05/04/17 05:59 Last Admin: 05/04/17 14:55 Dose: Not Given Ketorolac Tromethamine (Toradol) 30 mg IVPUSH ONARRIVE [facility] Stop: 05/03/17 14:01 Last Admin: 05/03/17 11:02 Dose: 30 mg Ketorolac Tromethamine (Toradol) 30 mg IVPUSH Q6H [facility] Stop: 05/04/17 04:00 Last Admin: 05/04/17 02:21 Dose: 30 mg Midazolam HCl (Versed 1 Mg/Ml) Confirm Administered Dose 2 mg .ROUTE .STK-MED ONE Stop: 05/03/17 10:09 Non-Formulary Medication (Amlodipine) 10 mg PO DAILY [facility] Last Admin: 05/04/17 14:55 Dose: Not Given Ondansetron HCl (Zofran) Confirm Administered Dose 4 mg .ROUTE .STK-MED ONE Stop: 05/03/17 10:08 Oxycodone HCl (Oxycontin) 20 mg PO ONARRIVE [facility] Stop: 05/03/17 14:01 Last Admin: 05/03/17 10:59 Dose: 20 mg Propofol (Diprivan 20 Ml) Confirm Administered Dose 800 mg .ROUTE .STK-MED ONE Stop: 05/03/17 10:08 Tranexamic Acid (Cyklokapron) Confirm Administered Dose 4,000 mg .ROUTE .STK- MED ONE Stop: 05/03/17 07:21 - Exam Wound/Incisions: Healing Well. No: Drainage, Erythema General: Alert, Oriented Cardiovascular: Regular Rate, Regular Rhythm Extremities: Other (exam RLE - at/ehl/gastroc 5/5, dp 2+, sensation intact distally. No active drainage when dressing removed today. ) Physical Findings Comment:: vss, afeb hgb 13.0 - Problem List Review Problem List Initiated/Reviewed/Updated: Yes - My Orders Last 24 Hours: Active Orders 24 hr Category Date Time Status Ready for Discharge [RC] PER UNIT ROUTINE Care 05/05/17 08:59 Ordered Urinary Catheter Removal [RC] Per Unit Routine Care 05/04/17 15:22 Active HEMOGLOBIN/HEMATOCRIT,HH [HEME] DAILY Lab 05/06/17 06:00 Ordered Allopurinol [Zyloprim] Med 05/04/17 09:00 Active 100 mg PO DAILY Aspirin Med 05/04/17 09:00 Active 325 mg PO BID Celecoxib [CeleBREX] Med 05/04/17 09:00 Active 200 mg PO BID Famotidine [Pepcid] Med 05/04/17 09:00 Active 40 mg PO DAILY Hydrochlorothiazide Med 05/04/17 09:00 Active 25 mg PO DAILY Simvastatin [Zocor] Med 05/04/17 09:00 Active 20 mg PO DAILY Sodium Chloride 0.9% [Saline Flush] Med 05/04/17 15:22 Active 10 ml FLUSH ASDIRECTED PRN Sodium Chloride 0.9% [Saline Flush] Med 05/04/17 15:22 Active 2.5 ml FLUSH ASDIRECTED PRN amLODIPine [Norvasc] Med 05/05/17 08:30 Active 10 mg PO DAILY Convert IV to Saline Lock [OM.PC] Routine Oth 05/04/17 15:22 Ordered Medication Orders Acetaminophen (Tylenol Extra Strength) 1,000 mg PO Q6H [facility] Last Admin: 05/05/17 05:08 Dose: 1,000 mg Admin: 05/04/17 23:14 Dose: 1,000 mg Admin: 05/04/17 16:53 Dose: 1,000 mg Admin: 05/04/17 14:55 Dose: Admin: 05/04/17 14:54 Dose: Al Hydroxide/Mg Hydroxide (Mag-Al Plus) 30 ml PO Q4H PRN PRN Reason: indigestion Allopurinol (Zyloprim) 100 mg PO DAILY [facility] Last Admin: 05/04/17 14:57 Dose: Amlodipine Besylate (Norvasc) 10 mg PO DAILY [facility] Aspirin (Aspirin) 325 mg PO BID [facility] Last Admin: 05/05/17 08:12 Dose: 325 mg Admin: 05/04/17 20:10 Dose: 325 mg Admin: 05/04/17 14:56 Dose: Bisacodyl (Dulcolax) 10 mg RECTAL DAILY PRN PRN Reason: Constipation Celecoxib (Celebrex) 200 mg PO BID [facility] Last Admin: 05/05/17 08:12 Dose: 200 mg Admin: 05/04/17 20:11 Dose: 200 mg Admin: 05/04/17 14:56 Dose: Diphenhydramine HCl (Benadryl) 25 - 50 mg PO Q6H PRN PRN Reason: Itching Docusate Sodium (Colace) 100 mg PO BID [facility] Last Admin: 05/05/17 08:11 Dose: 100 mg Admin: 05/04/17 20:11 Dose: 100 mg Admin: 05/04/17 14:56 Dose: Admin: 05/03/17 21:05 Dose: 100 mg Famotidine (Pepcid) 40 mg PO DAILY [facility] Last Admin: 05/05/17 08:11 Dose: 40 mg Admin: 05/04/17 14:57 Dose: Hydrochlorothiazide (Hydrochlorothiazide) 25 mg PO DAILY [facility] Last Admin: 05/05/17 08:11 Dose: 25 mg Admin: 05/04/17 14:56 Dose: Hydromorphone HCl (Dilaudid) 0.5 - 1 mg IVPUSH Q3H PRN PRN Reason: Pain Lactated Ringer's (Ringers, Lactated) 1,000 mls @ 100 mls/hr IV ASDIRECTED [facility] Last Admin: 05/03/17 23:40 Dose: 100 mls/hr Infusion: 05/03/17 20:59 Dose: 100 mls/hr Admin: 05/03/17 10:59 Dose: 100 mls/hr Ondansetron HCl (Zofran) 4 mg IV Q6HR PRN PRN Reason: NAUSEA/VOMITING Oxycodone HCl (Oxycodone) 5 - 10 mg PO Q4H PRN PRN Reason: Pain Last Admin: 05/05/17 07:09 Dose: 10 mg Admin: 05/04/17 16:04 Dose: 10 mg Admin: 05/03/17 18:14 Dose: 10 mg Oxycodone HCl (Oxycontin) 20 mg PO Q12HR [facility] Last Admin: 05/05/17 08:12 Dose: 20 mg Admin: 05/04/17 20:12 Dose: 20 mg Admin: 05/04/17 14:57 Dose: Admin: 05/03/17 21:05 Dose: 20 mg Scopolamine (Transderm-Scop) 1.5 mg TRDERM ONARRIVE [facility] Last Admin: 05/03/17 10:59 Dose: 1.5 mg Simvastatin (Zocor) 20 mg PO DAILY [facility] Last Admin: 05/05/17 08:12 Dose: 20 mg Admin: 05/04/17 14:57 Dose: Sodium Chloride (Saline Flush) 10 ml FLUSH ASDIRECTED PRN PRN Reason: Keep Vein Open Sodium Chloride (Saline Flush) 2.5 ml FLUSH ASDIRECTED PRN PRN Reason: Keep Vein Open - Assessment Assessment (Free Text/Narrative):: POD#2 R TKA - Plan Plan (Free Text/Narrative):: continue PT and pain management until discharge Aquacel dressing placed see d/ch instructions, meds on chart d/ch summary #[id number]
[2017-05-05] MEDS: Allopurinol 100 MG Tab PO SCH (09:32)
--- NOTE | 2017-05-06 07:48 | DISCH ---
DATE OF DISCHARGE: 05/05/2017 PRIMARY CARE PHYSICIAN: Osmany Jorge M.D ADMITTING DIAGNOSIS: Degenerative joint disease, right knee, tricompartmental. OTHER MEDICAL DIAGNOSES: 1. Hypertension. 2. Hyperlipidemia. 3. Gastroesophageal reflux disease. 4. Gout. DISCHARGE DIAGNOSES: 1. Degenerative joint disease, right knee, tricompartmental. 2. Hypertension. 3. Hyperlipidemia. 4. Gastroesophageal reflux disease. 5. Gout. BRIEF HISTORY: Garret is a 52-year-old male, who has had progressive complaints of right knee pain. He has tried and failed conservative treatment. At that time, surgical treatment was recommended. On May 03, 2017, the patient underwent a right total knee arthroplasty done by Dr. Phyllis Jorge. This is under spinal anesthesia with sedation. Estimated blood loss was 50 mL. Tourniquet time was 45 minutes. There were no known complications. Upon completion of the procedure, the patient was transferred to the PACU and subsequently to Med/Surg for postoperative care. HOSPITAL COURSE: Postoperatively, the patient did well. He received two doses of Ancef postoperatively for a total of 24 hours of antibiotic coverage. Physical therapy followed him through his hospital stay. His pain was controlled with a combination of oral and IV pain medications. Aspirin 325 mg by mouth twice daily, was started on postoperative day #1 as DVT prophylaxis. His vital signs have been stable. He has been afebrile. His hemoglobin on the morning of May 05 was 13.0. His pain is controlled with oral pain medications. He is ambulating well with a wheeled walker. He feels comfortable with discharge to home. DISCHARGE MEDICATIONS: 1. OxyContin 20 mg. 2. Oxycodone 5 mg. 3. Tylenol extra-strength 500 mg. 4. Celebrex 200 mg. 5. Colace 100 mg. 6. Aspirin 325 mg. DISCHARGE INSTRUCTIONS: 1. Follow up in clinic 10-14 days from the date of procedure. This appointment has been made for the patient. 2. Outpatient physical therapy 2-3 times per week for 4-6 weeks. 3. No driving for six weeks status post right total knee arthroplasty. 4. Polar Care to the right knee as needed. 5. MARIBEL hose, on in the morning, off in the evening. 6. He is to change his dressing on May 08, 2017. Place a new Aquacel dressing and leave that in place until follow-up. For complete medication reconciliation and discharge instructions, please refer back to the patient's EHR. Should he have questions or concerns prior to followup, he has been advised to return to clinic or call. PEEWEE RODRIGUEZ /[id number]
== END 2017-05-05 09:30 | disposition home or self-care (01) | DRG 302 ==
LOC: MW.MS 10:37
PROVIDERS: ADMIT Orthopaedic Surgery; ATTEND Orthopaedic Surgery
PROC: 0SRC0J9 Replacement of Right Knee Joint with Synthetic Substitute, Cemented, Open Approach (ICD-10-PCS; principal; 2017-05-03)
DX: M17.11 Unilateral primary osteoarthritis, right knee (principal); M94.261 Chondromalacia, right knee; M25.761 Osteophyte, right knee; I10 Essential (primary) hypertension; E78.5 Hyperlipidemia, unspecified; K21.9 Gastro-esophageal reflux disease without esophagitis; M10.9 Gout, unspecified; Z79.899 Other long term (current) drug therapy
CPT/HCPCS: 01402; 36415; 51701; 51702; 73560-26-RT; 73560-RT; 85014; 85018; 86850; 86900; 86901; 88305; 88311; 97110-GP; 97161-GP; A9270-GY; C1713; C1776; J0171; J0690; J0735; J1200; J1885; J2250; J2405; J2704; J2795; J3010; J7050; J7120

== ENCOUNTER 2017-05-10 18:32 | Inpatient (IN) | payer BC ==
[2017-05-10] MEDS ORDERED: Sodium Chloride 0.9% 2.5 ML Syringe FLUSH PRN (18:52)
[2017-05-10] MEDS ORDERED: Sodium Chloride 0.9% 10 ML Syringe FLUSH PRN (18:52)
--- NOTE | 2017-05-10 18:52 | EDM.PDOC ---
ED HPI GENERAL MEDICAL PROBLEM - General Chief Complaint: Lower Extremity Injury/Pain Stated Complaint: SWOLLEN KNEE Time Seen by Provider: 05/10/17 18:50 Source of Information: Reports: Patient, Family History Limitations: Reports: No Limitations - History of Present Illness INITIAL COMMENTS - FREE TEXT/NARRATIVE: HISTORY AND PHYSICAL: []52-year-old male presenting with right knee that is swollen History of Present Illness: []Patient recently underwent surgical procedure for total knee on the right (1 week ago) The last 2 days knee has started to become reddened and swollen Patient quit smoking 6 months ago He has productive cough with phlegm Review of Systems: As per history of present illness and below otherwise all systems reviewed and negative. Past medical history: As per history of present illness and as reviewed below otherwise noncontributory. Surgical history: As per history of present illness and as reviewed below otherwise noncontributory. Social history: No reported history of drug or alcohol abuse. Family history: As per history of present illness and as reviewed below otherwise noncontributory. Physical exam: Alert and oriented male answering questions appropriately in full sentences no shortness of breath noted. HEENT: Atraumatic, normocehpalic, pupils reactive, negative for conjunctival pallor or scleral icterus, mucous membranes moist, throat clear, neck supple, nontender, trachea midline. Lungs: Clear to auscultation, breath sounds equal bilaterally, chest non tender. Heart: S1S2, regular, negative for clicks, rubs, or JVD. Abdomen: Soft, nondistended, nontender. Negative for masses or hepatossplenmegaly. Negative for costovertebral tenderness. Pelvis: Stable nontender. Genitourinary: Deferred. Rectal: Deferred Extremities: Right knee edematous erythema from mid calf up to mid thigh . Skin pen was utilized to follow the edge of the erythema negative for cords or calf pain. Neurovascular unremarkable. Neuro: Awake, alert, oriented. Cranial nerves II through XII unremarkable. Cerebellum unremarkable. Motor and sensory unremarkable throughout. Exam nonfocal. Have discussed with patient the concerns I have with his edema and cellulitis Have discussed this case with Dr. Koo who has agreed as inpatient admission Diagnostics: [CBC CMP blood cultures 2 UA chest x-ray] Therapeutics: [IV normal saline] Impression: [Cellulitis to right leg] Plan: [Admission as inpatient] Definitive disposition and diagnosis as appropriate pending reevaluation and review of above. Onset: Gradual Duration: Hour(s):, Getting Worse Right Leg Pain Score (Numeric/FACES): 4 - Related Data Allergies Allergy/AdvReac Type Severity Reaction Status Date / Time No Known Allergies Allergy Verified 05/10/17 18:46 Home Meds: Home Meds Allopurinol [Zyloprim] 100 mg PO DAILY 11/09/16 [History] Hydrochlorothiazide 25 mg PO DAILY 11/09/16 [History] Simvastatin [Zocor] 20 mg PO DAILY 11/09/16 [History] amLODIPine Besylate [Amlodipine Besylate] 10 mg PO DAILY 11/09/16 [History] Acetaminophen [Tylenol Extra Strength] 1,000 mg PO Q6H #100 tablet 05/05/17 [Rx] Aspirin 325 mg PO BID #60 tablet 05/05/17 [Rx] Celecoxib [CeleBREX] 200 mg PO DAILY #45 cap 05/05/17 [Rx] Docusate Sodium [Colace] 100 mg PO BID #60 cap 05/05/17 [Rx] oxyCODONE 5 - 10 mg PO Q4H PRN #80 tablet 05/05/17 [Rx] oxyCODONE ER [OxyCONTIN] 20 mg PO Q12HR #30 tab.er 05/05/17 [Rx] Past Medical History HEENT History: Reports: Other (See Below) Other HEENT History: wears glasses Cardiovascular History: Reports: High Cholesterol, Hypertension Gastrointestinal History: Reports: None Genitourinary History: Reports: None Musculoskeletal History: Reports: Arthritis, Fracture, Gout Other Musculoskeletal History: 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 knee, Endocrine/Metabolic History: Reports: Obesity/BMI 30+ - Past Surgical History Head Surgeries/Procedures: Reports: None GI Surgical History: Reports: Colonoscopy Musculoskeletal Surgical History: Reports: ORIF, Other (See Below) Other Musculoskeletal Surgeries/Procedures:: surgical tx for fx left ankle, left thumb surgery with tendon repair Social & Family History - Tobacco Use Smoking Status *Q: Former Smoker Used Tobacco, but Quit: Yes Month Tobacco Last Used: pt states he quit smoking 4 months ago - Recreational Drug Use Recreational Drug Use: No Review of Systems - Review of Systems Review Of Systems: ROS reveals no pertinent complaints other than HPI. ED EXAM, GENERAL - Physical Exam Exam: See Below (See dictation) Course - Vital Signs Last Recorded V/S: Last Vital Signs Temp 36.9 C 05/10/17 19:11 Pulse 82 05/10/17 19:11 Resp 17 05/10/17 19:11 BP 125/66 05/10/17 19:11 Pulse Ox 95 05/10/17 19:11 - Orders/Labs/Meds Orders: Active Orders 24 hr Category Date Time Status Chest 2V [CR] Stat Exams 05/10/17 18:53 Taken Knee 3V Rt [CR] Stat Exams 05/10/17 19:20 Taken CULTURE BLOOD [BC] Stat Lab 05/10/17 18:50 Received CULTURE BLOOD [BC] Stat Lab 05/10/17 19:05 Received CULTURE URINE [RM] Stat Lab 05/10/17 18:53 Uncollected UA W/MICROSCOPIC [URIN] Stat Lab 05/10/17 18:53 Uncollected Sodium Chloride 0.9% [Saline Flush] Med 05/10/17 18:52 Active 10 ml FLUSH ASDIRECTED PRN Sodium Chloride 0.9% [Saline Flush] Med 05/10/17 18:52 Active 2.5 ml FLUSH ASDIRECTED PRN Blood Culture x2 Reflex Set [OM.PC] Stat Oth 05/10/17 18:53 Ordered Saline Lock Insert [OM.PC] Stat Oth 05/10/17 18:52 Ordered Medication Orders Sodium Chloride (Saline Flush) 10 ml FLUSH ASDIRECTED PRN PRN Reason: Keep Vein Open Last Admin: 05/10/17 19:12 Dose: 10 ml Sodium Chloride (Saline Flush) 2.5 ml FLUSH ASDIRECTED PRN PRN Reason: Keep Vein Open Last Admin: 05/10/17 19:12 Dose: 2.5 ml Labs: Laboratory Tests 05/10/17 05/10/17 05/10/17 Range/Units 18:50 18:50 18:50 WBC 7.55 (4.0-11.0) K/uL RBC 3.86 L (4.50-5.90) M/uL Hgb 12.1 L (13.0-17.0) g/dL Hct 34.6 L (38.0-50.0) % MCV 89.6 (80.0-98.0) fL MCH 31.3 (27.0-32.0) pg MCHC 35.0 (31.0-37.0) g/dL RDW Std Deviation 43.9 (28.0-62.0) fl RDW Coeff of Jose 14 (11.0-15.0) % Plt Count 274 (150-400) K/uL MPV 9.20 (7.40-12.00) fL Neut % (Auto) 53.6 (48.0-80.0) % Lymph % (Auto) 33.4 (16.0-40.0) % [place] % (Auto) 9.3 (0.0-15.0) % Eos % (Auto) 3.2 (0.0-7.0) % Baso % (Auto) 0.5 (0.0-1.5) % Neut # (Auto) 4.1 (1.4-5.7) K/uL Lymph # (Auto) 2.5 H (0.6-2.4) K/uL [place] # (Auto) 0.7 (0.0-0.8) K/uL Eos # (Auto) 0.2 (0.0-0.7) K/uL Baso # (Auto) 0.0 (0.0-0.1) K/uL Nucleated RBC % 0.0 /100WBC Nucleated RBCs # 0 K/uL Lactate 1.6 (0.20-2.00) mmol/L Sodium 139 (136-146) mmol/L Potassium 3.2 L (3.5-5.1) mmol/L Chloride 95 L (98-110) mmol/L Carbon Dioxide 31 (21-31) mmol/L BUN 16 (6.0-23.0) mg/dL Creatinine 1.1 (0.6-1.5) mg/dL Est Cr Clr Drug Dosing 84.26 mL/min Estimated GFR (MDRD) > 60.0 ml/min Glucose 115 H (60-110) mg/dL Calcium 9.4 (8.8-10.8) mg/dL Total Bilirubin 1.9 H (0.1-1.5) mg/dL AST 26 (5-40) IU/L ALT 31 (8-54) IU/L Alkaline Phosphatase 92 (40-150) Total Protein 7.3 (6.0-8.0) g/dL Albumin 3.8 (3.5-5.0) g/dL Globulin 3.5 (2.0-3.5) g/dL Albumin/Globulin Ratio 1.1 L (1.3-2.8) Meds: Medications Generic Name Dose Route Start Last Admin Trade Name Nicolasq PRN Reason Stop Dose Admin Sodium Chloride 10 ml 05/10/17 18:52 05/10/17 19:12 Saline Flush FLUSH 10 ml ASDIRECTED PRN Administration Keep Vein Open Sodium Chloride 2.5 ml 05/10/17 18:52 05/10/17 19:12 Saline Flush FLUSH 2.5 ml ASDIRECTED PRN Administration Keep Vein Open Discontinued Medications Generic Name Dose Route Start Last Admin Trade Name Nicolasq PRN Reason Stop Dose Admin Piperacillin Sod/Tazobactam 50 mls @ 100 mls/hr 05/10/17 18:55 05/10/17 19:13 Sod 3.375 gm/ Sodium Chloride IV 05/10/17 19:24 100 mls/hr ONETIME ONE Administration Vancomycin HCl 1 gm/ Sodium 250 mls @ 250 mls/hr 05/10/17 18:56 05/10/17 19: 56 Chloride IV 05/10/17 19:55 250 mls/hr ONETIME ONE Administration Sodium Chloride 1,000 mls @ 999 mls/hr 05/10/17 19:03 05/10/17 19:13 Normal Saline IV 05/10/17 20:03 999 mls/hr STAT ONE Administration Departure - Departure Time of Disposition: 20:08 Disposition: Admitted As Inpatient 64 Condition: Good Clinical Impression: Cellulitis and abscess of right leg - Discharge Information Referrals: Osmany Jorge MD [Primary Care Provider] - Forms: ED Department Discharge - My Orders Last 24 Hours: My Active Orders 05/10/17 18:50 CULTURE BLOOD [BC] Stat 05/10/17 18:52 Sodium Chloride 0.9% [Saline Flush] 10 ml FLUSH ASDIRECTED PRN Sodium Chloride 0.9% [Saline Flush] 2.5 ml FLUSH ASDIRECTED PRN Saline Lock Insert [OM.PC] Stat 05/10/17 18:53 Chest 2V [CR] Stat CULTURE URINE [RM] Stat UA W/MICROSCOPIC [URIN] Stat Blood Culture x2 Reflex Set [OM.PC] Stat 05/10/17 19:05 CULTURE BLOOD [BC] Stat 05/10/17 19:20 Knee 3V Rt [CR] Stat - Assessment/Plan Last 24 Hours: My Active Orders 05/10/17 18:50 CULTURE BLOOD [BC] Stat 05/10/17 18:52 Sodium Chloride 0.9% [Saline Flush] 10 ml FLUSH ASDIRECTED PRN Sodium Chloride 0.9% [Saline Flush] 2.5 ml FLUSH ASDIRECTED PRN Saline Lock Insert [OM.PC] Stat 05/10/17 18:53 Chest 2V [CR] Stat CULTURE URINE [RM] Stat UA W/MICROSCOPIC [URIN] Stat Blood Culture x2 Reflex Set [OM.PC] Stat 05/10/17 19:05 CULTURE BLOOD [BC] Stat 05/10/17 19:20 Knee 3V Rt [CR] Stat
[2017-05-10] MEDS ORDERED: Piperacillin/Tazobactam 3.375 GM in Sodium Chloride 0.9% 50 ML IV ONE (18:55)
[2017-05-10] MEDS ORDERED: Sodium Chloride 0.9% 1,000 ML IV ONE (19:03)
[2017-05-10 19:21] LABS: CHLORIDE,CL 95 mmol/L (98-110); SODIUM,NA 139 mmol/L (136-146)
--- NOTE | 2017-05-10 20:33 | PCM.HP ---
H&P History of Present Illness - General Date of Service: 05/10/17 Admit Problem/Dx: Cellulitis Source of Information: Patient History Limitations: Reports: No Limitations - History of Present Illness Initial Comments - Free Text/Narative: 52 yo male presenting to ED with chief complaint of pain and swelling to his right knee/leg x 1.5 days. Patient had a right total knee replacement on 05/03/17 (1 week) ago. He initially did well after surgery and states that he went to therapy on Wednesday and felt fine. Wednesday states that they changed his dressing at home and the incision "looked good". States that later that evening he felt as if there was more swelling in his foot than normal. On Thursday 05/10 swelling became worse and redness developed involving his entire right leg up to his thigh. He has some associated chills and diaphoresis but did not take a temp at home. He has also developed a cough with brownish/green phlem production over the last few days. Patient has a history of hypertension, hyperlipidemia, and gout. He is not a diabetic. He denies any chest pain, palpitaions, does have some shortnes of breath with associated cough with production. He denies any nausea, vomiting, abdominal pain but has felt constipated. He has been up and ambulating and has no history of DVT. He quit smoking 6 months ago but has a 40+-pack-year history. In ED CBC showed no leukocytosis and patient was afebrile, he was tachycardic on arrival to ED with pulse of 105. Lactate was normal at 1.6. CMP revealed mild hypokalemia with potassium 3.2. Chest x-ray showed no acute cardiopulmonary disease. Right knee radiograph revealed no radiologic evidence of asymmetric polyethylene wear, prosthetic loosening, or infection. There was increased soft tissue edema noted in the anterior knee. He was started on vancomycin and Zosyn. Patient will be admitted for cellulitis. Right Leg Pain Score (Numeric/FACES): 4 - Related Data Allergies/Adverse Reactions: Allergies Allergy/AdvReac Type Severity Reaction Status Date / Time No Known Allergies Allergy Verified 05/10/17 18:46 Home Medications: Home Meds Allopurinol [Zyloprim] 100 mg PO DAILY 11/09/16 [History] Hydrochlorothiazide 25 mg PO DAILY 11/09/16 [History] Simvastatin [Zocor] 20 mg PO DAILY 11/09/16 [History] amLODIPine Besylate [Amlodipine Besylate] 10 mg PO DAILY 11/09/16 [History] Acetaminophen [Tylenol Extra Strength] 1,000 mg PO Q6H #100 tablet 05/05/17 [Rx] Aspirin 325 mg PO BID #60 tablet 05/05/17 [Rx] Celecoxib [CeleBREX] 200 mg PO DAILY #45 cap 05/05/17 [Rx] Docusate Sodium [Colace] 100 mg PO BID #60 cap 05/05/17 [Rx] oxyCODONE 5 - 10 mg PO Q4H PRN #80 tablet 05/05/17 [Rx] oxyCODONE ER [OxyCONTIN] 20 mg PO Q12HR #30 tab.er 05/05/17 [Rx] Past Medical History HEENT History: Reports: Other (See Below) Other HEENT History: wears glasses Cardiovascular History: Reports: High Cholesterol, Hypertension Gastrointestinal History: Reports: None Genitourinary History: Reports: None Musculoskeletal History: Reports: Arthritis, Fracture, Gout Other Musculoskeletal History: 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 knee, Endocrine/Metabolic History: Reports: Obesity/BMI 30+ - Infectious Disease History Infectious Disease History: Reports: Chicken Pox - Past Surgical History Head Surgeries/Procedures: Reports: None GI Surgical History: Reports: Colonoscopy Musculoskeletal Surgical History: Reports: ORIF, Other (See Below) Other Musculoskeletal Surgeries/Procedures:: surgical tx for fx left ankle, left thumb surgery with tendon repair Social & Family History - Family History Family Medical History: Noncontributory - Tobacco Use Smoking Status *Q: Former Smoker Used Tobacco, but Quit: Yes Month Tobacco Last Used: pt states he quit smoking 4 months ago - Caffeine Use Caffeine Use: Reports: Coffee - Recreational Drug Use Recreational Drug Use: No H&P Review of Systems - Review of Systems: Review Of Systems: See Below General: Reports: Chills, Diaphoresis. Denies: Fever, Malaise, Weakness, Fatigue HEENT: Denies: Dysphasia, Headaches, Sore Throat Pulmonary: Reports: Shortness of Breath, Cough, Sputum. Denies: Wheezing, Hemoptysis Cardiovascular: Reports: Edema. Denies: Chest Pain, Palpitations Gastrointestinal: Reports: Constipation. Denies: Abdominal Pain, Diarrhea, Nausea, Vomiting Genitourinary: Denies: Dysuria, Hematuria Musculoskeletal: Reports: Leg Pain. Denies: Neck Pain Skin: Denies: Cyanosis Psychiatric: Denies: Confusion Neurological: Denies: Confusion, Dizziness, Headache Hematologic/Lymphatic: Denies: Anemia, Easy Bleeding Exam - Exam Exam: See Below - Vital Signs Vital Signs: Last Vital Signs Temp 98.5 F 05/10/17 19:11 Pulse 82 05/10/17 19:11 Resp 17 05/10/17 19:11 BP 125/66 05/10/17 19:11 Pulse Ox 95 05/10/17 19:11 Weight: 122 kg - Exam Quality Assessment: DVT Prophylaxis General: Alert, Oriented, Cooperative HEENT: Conjunctiva Clear, EACs Clear, EOMI, Hearing Intact, Mucosa Moist & [place] , Nares Patent, Normal Nasal Septum, Posterior Pharynx Clear, PERRLA Neck: Supple, Trachea Midline, 2 Lungs: Clear to Auscultation, Normal Respiratory Effort, Crackles Cardiovascular: Regular Rate, Regular Rhythm, Normal S1, Normal S2 GI/Abdominal Exam: Normal Bowel Sounds, Soft, Non-Tender, No Organomegaly, No Distention Back Exam: Normal Inspection Extremities: Normal Capillary Refill, Increased Warmth, Redness, Other ( Swelling and erythma of right extremety from foot to upper thigh border marked.) Peripheral Pulses: 2+: Radial (L), Radial (R), Posterior Tibial (L), Posterior Tibial (R), Dorsalis Pedis (L), Dorsalis Pedis (R) Skin: Warm, Dry, Intact Neurological: Cranial Nerves Intact Neuro Extensive - Mental Status: Alert, Oriented x3, Normal Mood/Affect, Normal Cognition Neuro Extensive - Motor, Sensory, Reflexes: CN II-XII Intact Psychiatric: Alert, Normal Affect, Normal Mood - Patient Data Result Diagrams: 05/10/17 18:50 05/10/17 18:50 *Q Meaningful Use (ADM) - VTE *Q VTE Criteria *Q: - Stroke *Q Stroke Criteria *Q: - AMI *Q AMI Criteria *Q: - Problem List (1) Cellulitis of right leg SNOMED Code(s): 204530081 ICD Code: L03.115 - CELLULITIS OF RIGHT LOWER LIMB Status: Acute Priority : High Current Visit: Yes (2) Hypertension SNOMED Code(s): 94140322 ICD Code: I10 - ESSENTIAL (PRIMARY) HYPERTENSION Status: Chronic Priority : Low Current Visit: Yes Qualifiers: Hypertension type: essential hypertension Qualified Code(s): I10 - Essential (primary) hypertension (3) Gout SNOMED Code(s): 62168751 ICD Code: M10.9 - GOUT, UNSPECIFIED Status: Chronic Priority: Low Current Visit: Yes Qualifiers: Gout site: unspecified site Gout etiology: unspecified cause Chronicity: unspecified Qualified Code(s): M10.9 - Gout, unspecified (4) Hyperlipidemia SNOMED Code(s): 67045727 ICD Code: E78.5 - HYPERLIPIDEMIA, UNSPECIFIED Status: Chronic Priority: Low Current Visit: Yes Qualifiers: Hyperlipidemia type: unspecified Qualified Code(s): E78.5 - Hyperlipidemia , unspecified Problem List Initiated/Reviewed/Updated: Yes Orders Last 24hrs: Medication Orders Sodium Chloride (Saline Flush) 10 ml FLUSH ASDIRECTED PRN PRN Reason: Keep Vein Open Last Admin: 05/10/17 19:12 Dose: 10 ml Sodium Chloride (Saline Flush) 2.5 ml FLUSH ASDIRECTED PRN PRN Reason: Keep Vein Open Last Admin: 05/10/17 19:12 Dose: 2.5 ml Assessment/Plan Comment:: 52 yo male admitted 05/10/17 for cellulites of right extremity with RTK replacement 1 week previous and pmh of htn, hyperlipidemia, and gout. Cellulites: Will start Zosyn and Flagyl. IVF resus. X-ray reveals superficial infection but should consult ortho may need aspiration. ESR and CRP most likely not helpful secondary to surgery only one week ago. No leukocytosis and afebrile at this time. Blood cultures taken in ED. Htn: Controlled when pain under control. Will resume home meds and monitor. HLD: Stable resume home meds. Gout: This does not look like a gouty attack and more cellulites. Will resume home meds and monitor. VTE: Heparin, SCD Dispo: 2-3 days pending.
[2017-05-10] MEDS ORDERED: Ondansetron 4 MG Tab.DIS PO PRN (20:43)
[2017-05-10] MEDS ORDERED: Acetaminophen 325 MG Tab PO PRN (20:43)
[2017-05-10] MEDS ORDERED: Potassium Chloride 20 MEQ Tab.ER PO ONE (20:43)
[2017-05-10] MEDS ORDERED: Temazepam 15 MG Cap PO PRN (20:43)
[2017-05-10] MEDS ORDERED: Polyethylene Glycol 3350 Powder 17 GM Packet PO PRN (20:43)
[2017-05-10] MEDS ORDERED: Morphine 10 MG/ML Syringe IVPUSH PRN (20:43)
[2017-05-10] MEDS ORDERED: Acetaminophen/oxyCODONE 325-5 MG Tab PO PRN (20:43)
[2017-05-10] MEDS ORDERED: Piperacillin/Tazobactam 3.375 GM in Sodium Chloride 0.9% 50 ML IV SCH ×2 (20:45→21:30)
[2017-05-10] MEDS ORDERED: Aspirin 325 MG Tab PO SCH (21:00)
[2017-05-10] MEDS: oxyCODONE ER 20 MG TAB.ER PO SCH (21:46)
[2017-05-10] MEDS: Sodium Chloride 0.9% 1,000 ML IV SCH (21:47)
[2017-05-10] MEDS: Heparin Sodium 5,000 Units/ML Vial SUBCUT SCH (21:52)
[2017-05-11] MEDS: Piperacillin/Tazobactam 3.375 GM in Sodium Chloride 0.9% 50 ML IV SCH ×2 (01:05→06:13)
[2017-05-11] MEDS: Heparin Sodium 5,000 Units/ML Vial SUBCUT SCH (04:32)
[2017-05-11 05:41] LABS: CHLORIDE,CL 100 mmol/L (98-110); SODIUM,NA 142 mmol/L (136-146)
[2017-05-11] MEDS: Sodium Chloride 0.9% 1,000 ML IV SCH (06:19)
[2017-05-11] MEDS ORDERED: Morphine 2 MG/ML Syringe IVPUSH PRN (07:15)
[2017-05-11] MEDS: oxyCODONE ER 20 MG TAB.ER PO SCH ×2 (08:16→20:01)
[2017-05-11] MEDS: Celecoxib 100 MG Cap PO SCH (08:20)
[2017-05-11] MEDS: Allopurinol 100 MG Tab PO SCH (08:21)
[2017-05-11] MEDS: Hydrochlorothiazide 25 MG Tab PO SCH (08:21)
[2017-05-11] MEDS: amLODIPine 5 MG Tab PO SCH (08:21)
[2017-05-11] MEDS ORDERED: Bisacodyl 10 MG Supp RECTAL PRN (08:37)
[2017-05-11] MEDS ORDERED: Vancomycin 1.5 GM in Sodium Chloride 0.9% 500 ML IV SCH (09:00)
--- NOTE | 2017-05-11 09:00 | PCM.PN ---
- General Info Date of Service: 05/11/17 Admission Dx/Problem (Free Text): Cellulitis Subjective Update: Reports feeling better today, some hot flashes intermittently. No chest pain, reports some SOB with movement and repositioning, says this has been since surgery. He denies cough. reports leg is feeling better today. Functional Status: Reports: Pain Controlled, Tolerating Diet, Ambulating, Urinating - Review of Systems General: Reports: No Symptoms. Denies: Fever, Malaise Pulmonary: Reports: No Symptoms. Denies: Pleuritic Chest Pain, Cough, Sputum, Wheezing Cardiovascular: Reports: Dyspnea on Exertion. Denies: Chest Pain Gastrointestinal: Reports: No Symptoms. Denies: Abdominal Pain, Nausea, Vomiting Genitourinary: Reports: No Symptoms. Denies: Dysuria, Frequency, Burning Musculoskeletal: Reports: Leg Pain (R knee pain, but controlled with meds) Neurological: Reports: No Symptoms. Denies: Confusion Psychiatric: Reports: No Symptoms. Denies: Confusion - Patient Data Vitals - Most Recent: Last Vital Signs Temp 98.2 F 05/11/17 04:00 Pulse 88 05/11/17 04:00 Resp 17 05/11/17 04:00 BP 127/80 05/11/17 08:21 Pulse Ox 95 05/11/17 04:00 Weight - Most Recent: 120.5 kg I&O - Last 24 Hours: Intake & Output 05/10/17 05/11/17 05/11/17 22:59 06:59 14:59 Intake Total 250 2700 Output Total 850 Balance 250 1850 Lab Results Last 24 Hours: Laboratory Results - last 24 hr 05/10/17 05/11/17 05/11/17 Range/Units 22:20 04:39 04:39 WBC 6.81 (4.0-11.0) K/uL RBC 3.60 L (4.50-5.90) M/uL Hgb 11.0 L (13.0-17.0) g/dL Hct 32.9 L (38.0-50.0) % MCV 91.4 (80.0-98.0) fL MCH 30.6 (27.0-32.0) pg MCHC 33.4 (31.0-37.0) g/dL RDW Std Deviation 44.7 (28.0-62.0) fl RDW Coeff of Jose 14 (11.0-15.0) % Plt Count 251 (150-400) K/uL MPV 9.20 (7.40-12.00) fL Neut % (Auto) 67.8 (48.0-80.0) % Lymph % (Auto) 20.4 (16.0-40.0) % Vigo % (Auto) 8.2 (0.0-15.0) % Eos % (Auto) 3.5 (0.0-7.0) % Baso % (Auto) 0.1 (0.0-1.5) % Neut # (Auto) 4.6 (1.4-5.7) K/uL Lymph # (Auto) 1.4 (0.6-2.4) K/uL Vigo # (Auto) 0.6 (0.0-0.8) K/uL Eos # (Auto) 0.2 (0.0-0.7) K/uL Baso # (Auto) 0.0 (0.0-0.1) K/uL Nucleated RBC % 0.0 /100WBC Nucleated RBCs # 0 K/uL ESR 58 H (0-19) mm/hr Sodium 142 (136-146) mmol/L Potassium 4.0 (3.5-5.1) mmol/L Chloride 100 (98-110) mmol/L Carbon Dioxide 32 H (21-31) mmol/L BUN 14 (6.0-23.0) mg/dL Creatinine 1.0 (0.6-1.5) mg/dL Est Cr Clr Drug Dosing 92.69 mL/min Estimated GFR (MDRD) > 60.0 ml/min Glucose 109 (60-110) mg/dL Calcium 8.5 L (8.8-10.8) mg/dL C-Reactive Protein 4.65 H (0.0-0.5) mg/dL Urine Color YELLOW Urine Appearance CLEAR Urine pH 6.5 (5.0-8.0) Ur Specific Taberg 1.015 (1.001-1.035) Urine Protein NEGATIVE (NEGATIVE) mg/dL Urine Glucose (UA) NEGATIVE (NEGATIVE) mg/dL Urine Ketones NEGATIVE (NEGATIVE) mg/dL Urine Occult Blood NEGATIVE (NEGATIVE) Urine Nitrite NEGATIVE (NEGATIVE) Urine Bilirubin NEGATIVE (NEGATIVE) Urine Urobilinogen 4.0 H (<2.0) EU/dL Ur Leukocyte Esterase NEGATIVE (NEGATIVE) Urine RBC 0-1 (0-2/HPF) Urine WBC 0-1 (0-5/HPF) Ur Epithelial Cells RARE (NONE-FEW) Urine Bacteria FEW (NEGATIVE) Med Orders - Current: Current Medications Acetaminophen (Tylenol) 650 mg PO Q4H PRN PRN Reason: Pain (Mild 1-3)/fever Allopurinol (Zyloprim) 100 mg PO DAILY [facility] Last Admin: 05/11/17 08:21 Dose: 100 mg Amlodipine Besylate (Norvasc) 10 mg PO DAILY [facility] Last Admin: 05/11/17 08:21 Dose: 10 mg Bisacodyl (Dulcolax) 10 mg RECTAL DAILY PRN PRN Reason: Constipation Celecoxib (Celebrex) 200 mg PO DAILY [facility] Last Admin: 05/11/17 08:20 Dose: 200 mg Heparin Sodium (Porcine) (Heparin Sodium) 5,000 units SUBCUT Q8H [facility] Last Admin: 05/11/17 04:32 Dose: 5,000 units Hydrochlorothiazide (Hydrochlorothiazide) 25 mg PO DAILY [facility] Last Admin: 05/11/17 08:21 Dose: 25 mg Sodium Chloride (Normal Saline) 1,000 mls @ 125 mls/hr IV ASDIRECTED [facility] Last Admin: 05/11/17 06:19 Dose: 125 mls/hr Vancomycin HCl 1.5 gm/ Sodium (Chloride) 500 mls @ 333.333 mls/hr IV Q12H [facility] Piperacillin Sod/Tazobactam (Sod 3.375 gm/ Sodium Chloride) 50 mls @ 100 mls/ hr IV Q6H [facility] Last Admin: 05/11/17 06:13 Dose: 100 mls/hr Morphine Sulfate (Morphine) 2 mg IVPUSH Q2H PRN PRN Reason: Pain (severe 7-10) Ondansetron HCl (Zofran Odt) 4 mg PO Q4H PRN PRN Reason: nausea, able to take PO Oxycodone HCl (Oxycontin) 20 mg PO Q12HR [facility] Last Admin: 05/11/17 08:16 Dose: 20 mg Oxycodone/Acetaminophen (Percocet 325-5 Mg) 1 tab PO Q4H PRN PRN Reason: Pain (moderate 4-6) Polyethylene Glycol (Miralax) 17 gm PO DAILY PRN PRN Reason: Constipation Last Admin: 05/10/17 21:51 Dose: 17 gm Senna/Docusate Sodium (Senna Plus) 1 tab PO BID PRN PRN Reason: Constipation Simvastatin (Zocor) 20 mg PO DAILY [facility] Sodium Chloride (Saline Flush) 10 ml FLUSH ASDIRECTED PRN PRN Reason: Keep Vein Open Last Admin: 05/10/17 19:12 Dose: 10 ml Sodium Chloride (Saline Flush) 2.5 ml FLUSH ASDIRECTED PRN PRN Reason: Keep Vein Open Last Admin: 05/10/17 19:12 Dose: 2.5 ml Temazepam (Restoril) 15 mg PO BEDTIME PRN PRN Reason: Sleep Vancomycin HCl (Pharmacy To Dose - Vancomycin) 1 dose .XX ASDIRECTED TINO Discontinued Medications Aspirin (Aspirin) 325 mg PO BID [facility] Last Admin: 05/10/17 21:45 Dose: Not Given Piperacillin Sod/Tazobactam (Sod 3.375 gm/ Sodium Chloride) 50 mls @ 100 mls/ hr IV ONETIME ONE Stop: 05/10/17 19:24 Last Admin: 05/10/17 19:13 Dose: 100 mls/hr Vancomycin HCl 1 gm/ Sodium (Chloride) 250 mls @ 250 mls/hr IV ONETIME ONE Stop: 05/10/17 19:55 Last Admin: 05/10/17 19:56 Dose: 250 mls/hr Sodium Chloride (Normal Saline) 1,000 mls @ 999 mls/hr IV STAT ONE Stop: 05/10/17 20:03 Last Admin: 05/10/17 19:13 Dose: 999 mls/hr Piperacillin Sod/Tazobactam (Sod 3.375 gm/ Sodium Chloride) 50 mls @ 100 mls/ hr IV Q6H [facility] Last Admin: 05/10/17 21:45 Dose: Not Given Morphine Sulfate (Morphine) 2 mg IVPUSH Q2H PRN PRN Reason: Pain (severe 7-10) Stop: 05/11/17 20:51 Potassium Chloride (Klor-Con M20) 40 meq PO ONETIME ONE Stop: 05/10/17 20:44 Last Admin: 05/10/17 21:46 Dose: 40 meq - Exam General: Alert, Oriented, Cooperative, No Acute Distress Lungs: Clear to Auscultation, Normal Respiratory Effort. No: Crackles, Rhonchi , Wheezing Cardiovascular: Regular Rate, Regular Rhythm, No Murmurs GI/Abdominal Exam: Normal Bowel Sounds, Soft, Non-Tender, No Organomegaly, No Distention, No Abnormal Bruit, No Mass, Pelvis Stable Extremities: Normal Range of Motion, Normal Capillary Refill, Pedal Edema (+2 pitting edema to R lower leg. ) Skin: Rash (noted to entire R leg, foot extending up to near groin. Reports this is itchy and when he scratches it is bleeds, noted blisters starting to knee. ) Wound/Incisions: No Drainage (nubia intact with no drainage, no erythema surrounding incision.), Erythema Improving (Erythema improved from previous day as per report of Dr Koo. Less bright red, continues to be warm to touch). No: Erythema Neurological: No New Focal Deficit Psy/Mental Status: Alert, Normal Affect, Normal Mood - Problem List & Annotations (1) Cellulitis SNOMED Code(s): 930027765 Code(s): L03.90 - CELLULITIS, UNSPECIFIED Status: Acute Current Visit: Yes Qualifiers: Site of cellulitis: extremity Site of cellulitis of extremity: lower extremity Laterality: right Qualified Code(s): L03.115 - Cellulitis of right lower limb (2) S/P total knee arthroplasty SNOMED Code(s): 9602399005115, 5670465646826 Code(s): Z96.659 - PRESENCE OF UNSPECIFIED ARTIFICIAL KNEE JOINT Status: Acute Current Visit: Yes Qualifiers: Laterality: right Qualified Code(s): Z96.651 - Presence of right artificial knee joint Annotation/Comment:: 1 week ago - Problem List Review Problem List Initiated/Reviewed/Updated: Yes - My Orders Last 24 Hours: My Active Orders 05/11/17 08:31 Venous Doppler Lwr Ext Rt [US] Stat 05/11/17 08:37 Bisacodyl [Dulcolax] 10 mg RECTAL DAILY PRN - Plan Plan:: 52 yo male admitted 05/10/17 for cellulites of right extremity with RTK replacement 1 week previous and pmh of htn, hyperlipidemia, and gout. 1. Cellulitis: Stop Vanco and Zosyn. Bactrim started today, will monitor today and consider DC in am. ADRI Tariq from Ortho visited with patient, considering Chlorprep reaction. ESR and CRP elevated slightly, but maybe from surgery last week. remains afebrile and no leukocytosis. BC pending. Encourage elevation of leg and to wear MARIBEL hose to reduce edema. May also use [facility] care for ice therapy. 2. HTN: Stable. Continue Home medications. 3. HLD: Stable Continue home meds. 4. Gout: This does not look like a gouty attack and more cellulitis. Will resume home meds and monitor. VTE: Stop Heparin, resume ASA 325 BID. Dispo: 1-2 days.
[2017-05-11] MEDS: Simvastatin 20 MG Tab PO SCH (09:31)
[2017-05-11] MEDS: Sulfamethoxazole/Trimethoprim 800-160 MG Tab PO SCH ×2 (10:32→20:01)
[2017-05-11] MEDS: Aspirin 325 MG Tab PO SCH ×2 (10:32→20:01)
--- NOTE | 2017-05-11 11:02 | PCM.SN ---
- Free Text/Narrative Note: contacted by Lindsay for evaluation of our post-op R TKA on 05.03.17 pt states yesterday his leg was swollen and painful, pain had previously been well controlled with OxyContin 20mg and oxycodone 5mg for breakthrough pain c/o of itchy rash to RLE, bleeds when scratched denies fevers, chills, fatigue, malaise blood cultures taken in ER started on Vanc and zosyn no worsening knee pain with active ROM MARIBEL hose removed from RLE yesterday upon admission had been attending PT, scheduled for outpt PT today vss, afeb WBC 6.8 ESR 58 CRP 4.65 hgb 11.0 exam RLE shows Aquacel in place diffuse macular rash from toes to groin - consistent with area of surgical prep with Chloraprep 2-3+ edema to level of knee able to reach full extension in bed - flexion not tested due to lower leg pain Aquacel dressing removed - incision clean, dry, nubia in place. no drainage or surrounding erythema. POD#8 R TKA chloraprep reaction RLE swelling/pain recommend RLE Doppler to r/o DVT I do not feel there is concern for superficial cellulitis, but defer d/c abx to hospitalist as I did not see the RLE erythema on admission PT today continue pain management, DVT prophylaxis elevate RLE above hip wound dressing 4x4s and xspan until d/ch if doppler is negative for DVT, could d/ch to home with follow-up as scheduled in clinic this week - emphasize MARIBEL hose and elevation new Aquacel to R knee wound prior to d/ch
--- NOTE | 2017-05-11 16:40 | CR ---
EXAM DATE: 05/10/17 PATIENT'S AGE: 52 Patient: ARNAV CAMPUZANO Facility: [place], [place] Site . Site : 1965 Study: XRay Chest [id number]/2017 7:49:15 PM Ordering Physician: Doctor Irving Final Report: INDICATION: Chest pain, shortness of breath TECHNIQUE: Chest radiograph 2 views COMPARISON: 04/19/17 FINDINGS: Mediastinum: The cardiac silhouette is normal in appearance and size. Mediastinum is within normal limits. Lungs: Both lungs are unremarkable in appearance. No sign of pleural effusion. No pneumothorax is seen. Bones and soft tissue: No significant findings. IMPRESSION: 1. No acute cardiopulmonary disease seen. Dictated by: Raymundo Brennan MD @ 05/10/2017 20:14:21 (Electronic Signature) Report Signed by Proxy. [facility]
--- NOTE | 2017-05-11 16:41 | CR ---
EXAM DATE: 05/10/17 PATIENT'S AGE: 52 Patient: ARNAV CAMPUZANO Facility: [place], [place] Site . Site : 1965 Study: XRay Knee Right [id number]/25/2017 7:49:46 PM Ordering Physician: Doctor Irving Final Report: INDICATION: pain and swelling, Total knee arthroplasty 04/28/17 TECHNIQUE: Knee radiograph 2 views right COMPARISON: 05/03/17 FINDINGS: Bones: Alignment is normal. No acute fractures or aggressive bone lesions identified. Joint spaces: The patient is status post a total knee arthroplasty with patellar resurfacing. No radiographic evidence of asymmetric polyethylene wear, prosthetic loosening or infection is seen. Soft tissues: Anterior skin nubia, subcutaneous edema are present. IMPRESSION: 1. Increased soft tissue edema noted in the anterior knee. Dictated by: Raymundo Brennan MD @ 05/10/2017 20:15:41 (Electronic Signature) Report Signed by Proxy. EMILIO
[2017-05-11] MEDS: Docusate Sodium 100 MG Cap PO SCH (20:01)
[2017-05-12 05:53] LABS: CHLORIDE,CL 101 mmol/L (98-110); SODIUM,NA 142 mmol/L (136-146)
[2017-05-12 08:06] VITALS: BP 129/82
--- NOTE | 2017-05-12 08:08 | PCM.SN ---
- Free Text/Narrative Note: pt resting comfortably in bed pain under better control today with rest and elevation IV abx have been dc'ed, PO bactrim DS started ASA 325mg PO BID resumed as DVT prophylaxis no repeat ESR or CRP drawn for response to abx no specific concerns from patient today vss, afeb WBC 5.93 hgb 10.9 blood cultures from ER negative exam RLE - macular rash persists from proximal thigh to toe 2-3+ edema to knee at/ehl/gastroc 5/, dp 2+, sensation intact distally follow-up in clinic tomorrow as scheduled aquacel to R knee wound prior to discharge
[2017-05-12] MEDS: Celecoxib 100 MG Cap PO SCH (08:37)
[2017-05-12] MEDS: Aspirin 325 MG Tab PO SCH (08:37)
[2017-05-12] MEDS: Hydrochlorothiazide 25 MG Tab PO SCH (08:37)
[2017-05-12] MEDS: Simvastatin 20 MG Tab PO SCH (08:38)
[2017-05-12] MEDS: oxyCODONE ER 20 MG TAB.ER PO SCH (08:38)
[2017-05-12] MEDS: Allopurinol 100 MG Tab PO SCH (08:38)
[2017-05-12] MEDS: Sulfamethoxazole/Trimethoprim 800-160 MG Tab PO SCH (08:38)
[2017-05-12] MEDS: Docusate Sodium 100 MG Cap PO SCH (08:38)
[2017-05-12] MEDS: amLODIPine 5 MG Tab PO SCH (08:38)
--- NOTE | 2017-05-12 08:59 | PCM.PN ---
- Patient Data Vitals - Most Recent: Last Vital Signs Temp 98.7 F 05/12/17 08:00 Pulse 91 05/12/17 08:00 Resp 16 05/12/17 08:00 BP 129/82 05/12/17 08:38 Pulse Ox 94 L 05/12/17 08:00 Weight - Most Recent: 120.5 kg I&O - Last 24 Hours: Intake & Output 05/11/17 05/12/17 05/12/17 22:59 06:59 14:59 Intake Total 650 Balance 650 Lab Results Last 24 Hours: Laboratory Results - last 24 hr 05/12/17 05/12/17 Range/Units 04:58 04:58 WBC 5.93 (4.0-11.0) K/uL RBC 3.61 L (4.50-5.90) M/uL Hgb 10.9 L (13.0-17.0) g/dL Hct 33.3 L (38.0-50.0) % MCV 92.2 (80.0-98.0) fL MCH 30.2 (27.0-32.0) pg MCHC 32.7 (31.0-37.0) g/dL RDW Std Deviation 45.7 (28.0-62.0) fl RDW Coeff of Jose 14 (11.0-15.0) % Plt Count 250 (150-400) K/uL MPV 9.10 (7.40-12.00) fL Neut % (Auto) 62.5 (48.0-80.0) % Lymph % (Auto) 26.5 (16.0-40.0) % Andrew % (Auto) 5.2 (0.0-15.0) % Eos % (Auto) 5.6 (0.0-7.0) % Baso % (Auto) 0.2 (0.0-1.5) % Neut # (Auto) 3.7 (1.4-5.7) K/uL Lymph # (Auto) 1.6 (0.6-2.4) K/uL Andrew # (Auto) 0.3 (0.0-0.8) K/uL Eos # (Auto) 0.3 (0.0-0.7) K/uL Baso # (Auto) 0.0 (0.0-0.1) K/uL Nucleated RBC % 0.0 /100WBC Nucleated RBCs # 0 K/uL Sodium 142 (136-146) mmol/L Potassium 4.0 (3.5-5.1) mmol/L Chloride 101 (98-110) mmol/L Carbon Dioxide 31 (21-31) mmol/L BUN 14 (6.0-23.0) mg/dL Creatinine 1.0 (0.6-1.5) mg/dL Est Cr Clr Drug Dosing 92.69 mL/min Estimated GFR (MDRD) > 60.0 ml/min Glucose 110 (60-110) mg/dL Calcium 8.6 L (8.8-10.8) mg/dL Earl Results Last 24 Hours: Microbiology 05/10/17 22:20 Urine Culture - Final Urine, Voided No Growth Med Orders - Current: Current Medications Acetaminophen (Tylenol) 650 mg PO Q4H PRN PRN Reason: Pain (Mild 1-3)/fever Allopurinol (Zyloprim) 100 mg PO DAILY [facility] Last Admin: 05/12/17 08:38 Dose: 100 mg Amlodipine Besylate (Norvasc) 10 mg PO DAILY [facility] Last Admin: 05/12/17 08:38 Dose: 10 mg Aspirin (Aspirin) 325 mg PO BID [facility] Last Admin: 05/12/17 08:37 Dose: 325 mg Bisacodyl (Dulcolax) 10 mg RECTAL DAILY PRN PRN Reason: Constipation Last Admin: 05/11/17 09:35 Dose: 10 mg Celecoxib (Celebrex) 200 mg PO DAILY [facility] Last Admin: 05/12/17 08:37 Dose: 200 mg Docusate Sodium (Colace) 100 mg PO BID [facility] Last Admin: 05/12/17 08:38 Dose: 100 mg Hydrochlorothiazide (Hydrochlorothiazide) 25 mg PO DAILY [facility] Last Admin: 05/12/17 08:37 Dose: 25 mg Morphine Sulfate (Morphine) 2 mg IVPUSH Q2H PRN PRN Reason: Pain (severe 7-10) Ondansetron HCl (Zofran Odt) 4 mg PO Q4H PRN PRN Reason: nausea, able to take PO Oxycodone HCl (Oxycontin) 20 mg PO Q12HR [facility] Last Admin: 05/12/17 08:38 Dose: 20 mg Oxycodone/Acetaminophen (Percocet 325-5 Mg) 1 tab PO Q4H PRN PRN Reason: Pain (moderate 4-6) Last Admin: 05/11/17 16:43 Dose: 1 tab Polyethylene Glycol (Miralax) 17 gm PO DAILY PRN PRN Reason: Constipation Last Admin: 05/10/17 21:51 Dose: 17 gm Senna/Docusate Sodium (Senna Plus) 1 tab PO BID PRN PRN Reason: Constipation Simvastatin (Zocor) 20 mg PO DAILY [facility] Last Admin: 05/12/17 08:38 Dose: 20 mg Sodium Chloride (Saline Flush) 10 ml FLUSH ASDIRECTED PRN PRN Reason: Keep Vein Open Last Admin: 05/10/17 19:12 Dose: 10 ml Sodium Chloride (Saline Flush) 2.5 ml FLUSH ASDIRECTED PRN PRN Reason: Keep Vein Open Last Admin: 05/10/17 19:12 Dose: 2.5 ml Temazepam (Restoril) 15 mg PO BEDTIME PRN PRN Reason: Sleep Trimethoprim/Sulfamethoxazole (Septra Ds) 1 tab PO BID [facility] Last Admin: 05/12/17 08:38 Dose: 1 tab Discontinued Medications Aspirin (Aspirin) 325 mg PO BID [facility] Last Admin: 05/10/17 21:45 Dose: Not Given Heparin Sodium (Porcine) (Heparin Sodium) 5,000 units SUBCUT Q8H [facility] Last Admin: 05/11/17 04:32 Dose: 5,000 units Piperacillin Sod/Tazobactam (Sod 3.375 gm/ Sodium Chloride) 50 mls @ 100 mls/ hr IV ONETIME ONE Stop: 05/10/17 19:24 Last Admin: 05/10/17 19:13 Dose: 100 mls/hr Vancomycin HCl 1 gm/ Sodium (Chloride) 250 mls @ 250 mls/hr IV ONETIME ONE Stop: 05/10/17 19:55 Last Admin: 05/10/17 19:56 Dose: 250 mls/hr Sodium Chloride (Normal Saline) 1,000 mls @ 999 mls/hr IV STAT ONE Stop: 05/10/17 20:03 Last Admin: 05/10/17 19:13 Dose: 999 mls/hr Sodium Chloride (Normal Saline) 1,000 mls @ 125 mls/hr IV ASDIRECTED [facility] Last Infusion: 05/11/17 10:34 Dose: 125 mls/hr Piperacillin Sod/Tazobactam (Sod 3.375 gm/ Sodium Chloride) 50 mls @ 100 mls/ hr IV Q6H [facility] Last Admin: 05/10/17 21:45 Dose: Not Given Vancomycin HCl 1.5 gm/ Sodium (Chloride) 500 mls @ 333.333 mls/hr IV Q12H [facility] Last Admin: 05/11/17 09:32 Dose: 333.333 mls/hr Piperacillin Sod/Tazobactam (Sod 3.375 gm/ Sodium Chloride) 50 mls @ 100 mls/ hr IV Q6H [facility] Last Admin: 05/11/17 06:13 Dose: 100 mls/hr Morphine Sulfate (Morphine) 2 mg IVPUSH Q2H PRN PRN Reason: Pain (severe 7-10) Stop: 05/11/17 20:51 Potassium Chloride (Klor-Con M20) 40 meq PO ONETIME ONE Stop: 05/10/17 20:44 Last Admin: 05/10/17 21:46 Dose: 40 meq Vancomycin HCl (Pharmacy To Dose - Vancomycin) 1 dose .XX ASDIRECTED [facility] - Problem List & Annotations (1) Cellulitis SNOMED Code(s): 215380111 Code(s): L03.90 - CELLULITIS, UNSPECIFIED Status: Acute Current Visit: Yes Qualifiers: Site of cellulitis: extremity Site of cellulitis of extremity: lower extremity Laterality: right Qualified Code(s): L03.115 - Cellulitis of right lower limb (2) S/P total knee arthroplasty SNOMED Code(s): 0795431008185, 2975927676778 Code(s): Z96.659 - PRESENCE OF UNSPECIFIED ARTIFICIAL KNEE JOINT Status: Acute Current Visit: Yes Qualifiers: Laterality: right Qualified Code(s): Z96.651 - Presence of right artificial knee joint Annotation/Comment:: 1 week ago - My Orders Last 24 Hours: My Active Orders 05/11/17 09:00 Allopurinol [Zyloprim] 100 mg PO DAILY Celecoxib [CeleBREX] 200 mg PO DAILY Hydrochlorothiazide 25 mg PO DAILY Simvastatin [Zocor] 20 mg PO DAILY amLODIPine [Norvasc] 10 mg PO DAILY 05/13/17 05:11 BASIC METABOLIC PANEL,BMP [CHEM] AM CBC WITH AUTO DIFF [HEME] AM 05/14/17 05:11 BASIC METABOLIC PANEL,BMP [CHEM] AM CBC WITH AUTO DIFF [HEME] AM - Plan Plan:: 52 yo male admitted 05/10/17 for cellulites of right extremity with RTK replacement 1 week previous and pmh of htn, hyperlipidemia, and gout. 1. Cellulitis: Stop Vanco and Zosyn. Bactrim started today, will monitor today and consider DC in am. ADRI Tariq from Ortho visited with patient, considering Chlorprep reaction. ESR and CRP elevated slightly, but maybe from surgery last week. remains afebrile and no leukocytosis. BC pending. Encourage elevation of leg and to wear MARIBEL hose to reduce edema. May also use [facility] for ice therapy. 2. HTN: Stable. Continue Home medications. 3. HLD: Stable Continue home meds. 4. Gout: This does not look like a gouty attack and more cellulitis. Will resume home meds and monitor. VTE: Stop Heparin, resume ASA 325 BID. Dispo: 1-2 days.
--- NOTE | 2017-05-12 09:12 | US ---
EXAM DATE: 05/10/17 PATIENT'S AGE: 52 Patient: ARNAV CAMPUZANO Facility: [place], [place] Site . Site : 1965 Study: US Extremity Right -05/11/2017 9:24:33 AM Ordering Physician: Hayes Islas Final Report: INDICATION: Leg pain and swelling. Postop knee arthroplasty. TECHNIQUE: Ultrasound venous duplex lower right extremity. Compression venous exam was performed using lópez-scale, color Doppler, and spectral Doppler imaging. COMPARISON: None. FINDINGS: Sonographic imaging demonstrates the right common femoral, deep femoral, superficial femoral, popliteal, posterior tibial and greater saphenous and the contralateral left common femoral veins to be fully compressible with normal color Doppler blood flow. IMPRESSION: Normal right lower extremity venous ultrasound, no sign of deep venous thrombosis. Dictated by Odell Tony MD @ May 11 2017 9:32AM (Electronic Signature) Report Signed by Proxy. EMILIO
--- NOTE | 2017-05-12 11:37 | PCM.DCSUM1 ---
Discharge Summary - Hospital Course HPI Initial Comments: 52 yo male admitted 05/10/17 for cellulites of right extremity with RTK replacement 1 week previous and pmh of htn, hyperlipidemia, and gout. Brief History: Patient intially presented to ED on 05/10 with complaint of swelling, redness to right extremity and associated diphoresis. He had a right total knee replacement on 05/03/17 (1 week previous to admission). He stated the he initially did well after surgery and went to therapy on Monday 05/07 and felt fine. Wednesday 05/09 they changed his dressing at home and the incision "looked good". States that later that evening he felt as if there was more swelling in his foot than normal. On Thursday 05/10 swelling became worse and redness developed involving his entire right leg up to his thigh. He had some associated chills and diaphoresis but did not take a temp at home. He also developed a cough with brownish/green phlem production. Patient has a history of hypertension, hyperlipidemia, and gout. He is not a diabetic. He denied any chest pain, palpitaions, did have some shortnes of breath with associated cough with production. He denies any nausea, vomiting, abdominal pain but felt constipated. He had been up and ambulating and had no history of DVT. He quit smoking 6 months ago but has a 40+-pack-year history. - Discharge Data Discharge Date: 05/12/17 Discharge Disposition: Home, Self-Care 01 Condition: Good - Discharge Diagnosis/Problem(s) (1) Cellulitis SNOMED Code(s): 211362952 ICD Code: L03.90 - CELLULITIS, UNSPECIFIED Status: Acute Current Visit: Yes Qualifiers: Site of cellulitis: extremity Site of cellulitis of extremity: lower extremity Laterality: right Qualified Code(s): L03.115 - Cellulitis of right lower limb (2) S/P total knee arthroplasty SNOMED Code(s): 9247909346037, 4555860393532 ICD Code: Z96.659 - PRESENCE OF UNSPECIFIED ARTIFICIAL KNEE JOINT Status: Acute Current Visit: Yes Problem Details: 1 week ago Qualifiers: Laterality: right Qualified Code(s): Z96.651 - Presence of right artificial knee joint - Patient Summary/Data Consults: Consultations 05/11/17 11:09 PT Evaluation and Treatment [CONS] Routine - Patient Instructions Diet: Usual Diet as Tolerated Activity: Apply Ice, Rest and Relax Today Driving: Do Not Drive Showering/Bathing: May Shower Wound/Incision Care: Keep Operative Site/Wound Site Clean and Dry Notify Provider of: Fever, Increased Pain, Swelling and Redness, Drainage, Nausea and/or Vomiting Other/Special Instructions: Take antibiotic Bactrim twice daily as prescribed. Follow-up with Dr. Jorge tomorrow as scheduled. Follow-up with primary as scheduled. Return to ED if return of symptoms. - Discharge Plan Prescriptions/Med Rec: Sulfamethoxazole/Trimethoprim [IJD: Sulfamethoxazole/Trimethoprim DS] 1 tab PO BID #11 tablet Home Medications: Home Meds Allopurinol [Zyloprim] 100 mg PO DAILY 11/09/16 [History] Hydrochlorothiazide 25 mg PO DAILY 11/09/16 [History] Simvastatin [Zocor] 20 mg PO DAILY 11/09/16 [History] amLODIPine Besylate [Amlodipine Besylate] 10 mg PO DAILY 11/09/16 [History] Acetaminophen [Tylenol Extra Strength] 1,000 mg PO Q6H #100 tablet 05/05/17 [Rx] Aspirin 325 mg PO BID #60 tablet 05/05/17 [Rx] Celecoxib [CeleBREX] 200 mg PO DAILY #45 cap 05/05/17 [Rx] Docusate Sodium [Colace] 100 mg PO BID #60 cap 05/05/17 [Rx] oxyCODONE 5 - 10 mg PO Q4H PRN #80 tablet 05/05/17 [Rx] oxyCODONE ER [OxyCONTIN] 20 mg PO Q12HR #30 tab.er 05/05/17 [Rx] Sulfamethoxazole/Trimethoprim [IJD: Sulfamethoxazole/Trimethoprim DS] 1 tab PO BID #11 tablet 05/12/17 [Rx] Patient Handouts: Cellulitis, Adult, Sulfamethoxazole; Trimethoprim, SMX-TMP tablets Referrals: Osmany Jorge MD [Primary Care Provider] - 05/19/17 9:30 am Chandni Cosme PA [Physician Advertising Campaign Manager] - - Discharge Summary/Plan Comment DC Time >30 min.: Yes Discharge Summary/Plan Comment: 52 yo male admitted 05/10/17 for cellulites of right extremity with RTK replacement 1 week previous and pmh of htn, hyperlipidemia, and gout. Patient intially presented to ED on 05/10 with complaint of swelling, redness to right extremity and associated diphoresis. He had a right total knee replacement on 05/03/17 (1 week previous to admission). He stated the he initially did well after surgery and went to therapy on Monday 05/07 and felt fine. Wednesday 05/09 they changed his dressing at home and the incision "looked good". States that later that evening he felt as if there was more swelling in his foot than normal. On Thursday 05/10 swelling became worse and redness developed involving his entire right leg up to his thigh. He had some associated chills and diaphoresis but did not take a temp at home. He also developed a cough with brownish/green phlem production. Patient has a history of hypertension, hyperlipidemia, and gout. He is not a diabetic. He denied any chest pain, palpitaions, did have some shortnes of breath with associated cough with production. He denies any nausea, vomiting, abdominal pain but felt constipated. He had been up and ambulating and had no history of DVT. He quit smoking 6 months ago but has a 40+-pack-year history. In ED CBC showed no leukocytosis and patient was afebrile, he was tachycardic on arrival to ED with pulse of 105. Lactate was normal at 1.6. CMP revealed mild hypokalemia with potassium 3.2. Chest x-ray showed no acute cardiopulmonary disease. Right knee radiograph revealed no radiologic evidence of asymmetric polyethylene wear, prosthetic loosening, or infection. There was increased soft tissue edema noted in the anterior knee. He was started on vancomycin and Zosyn. On day two of his stay he had improved and there was signficantly less swelling and redness to the right leg. We stopped Vanco and Zosyn and started oral Bactrim. ADRI Tariq from Ortho visited with patient, and thought this may be a Chlorprep reaction. ESR and CRP elevated slightly, but was most likely from surgery last week. He remained afebrile with no leukocytosis throughout his stay and blood cultures were neg x 1 day on day of dischage. He was encouraged tp elevate leg and to wear MARIBEL hose to reduce edema. He was also advise to use [facility] for ice therapy. The patient was discharged on the morning of day 3 with a prescription for Bactrim x 5 days for a total of 7 and follow-up appointments with Dr. Jorge the following day 05/13 as well as his PCP. He was instructed to return to ED if he had and return of his symptoms. 1. Cellulitis: Started intially on Vanc and Zosyn secondary to severe erythema and warmth seen in ED on admission. Sent home with Bactrim for a total of 7 days of abx. 2. RTK: Following with Dr. Jorge and ADRI Tariq on 05/13. - General Info Date of Service: 05/12/17 Admission Dx/Problem (Free Text: Cellulitis Subjective Update: Doing well. Continued decrease in erythema and swelling. Minimal pain. Eating and eliminating. Ready to go home. - Review of Systems General: Denies: Fever, Weakness, Fatigue HEENT: Denies: Headaches, Visual Changes Pulmonary: Reports: Cough. Denies: Shortness of Breath, Hemoptysis Cardiovascular: Reports: Edema. Denies: Chest Pain, Palpitations Gastrointestinal: Reports: Constipation. Denies: Abdominal Pain, Diarrhea, Nausea, Vomiting Genitourinary: Denies: Dysuria, Hematuria Musculoskeletal: Reports: Leg Pain. Denies: Neck Pain Skin: Denies: Cyanosis Neurological: Denies: Confusion, Dizziness Psychiatric: Denies: Confusion - Patient Data Vitals - Most Recent: Last Vital Signs Temp 98.7 F 05/12/17 08:00 Pulse 91 05/12/17 08:00 Resp 16 05/12/17 08:00 BP 129/82 05/12/17 08:38 Pulse Ox 94 L 05/12/17 08:00 Weight - Most Recent: 120.5 kg I&O - Last 24 hours: Intake & Output 05/11/17 05/12/17 05/12/17 22:59 06:59 14:59 Intake Total 650 Balance 650 Lab Results - Last 24 hrs: Laboratory Results - last 24 hr 05/12/17 05/12/17 Range/Units 04:58 04:58 WBC 5.93 (4.0-11.0) K/uL RBC 3.61 L (4.50-5.90) M/uL Hgb 10.9 L (13.0-17.0) g/dL Hct 33.3 L (38.0-50.0) % MCV 92.2 (80.0-98.0) fL MCH 30.2 (27.0-32.0) pg MCHC 32.7 (31.0-37.0) g/dL RDW Std Deviation 45.7 (28.0-62.0) fl RDW Coeff of Jose 14 (11.0-15.0) % Plt Count 250 (150-400) K/uL MPV 9.10 (7.40-12.00) fL Neut % (Auto) 62.5 (48.0-80.0) % Lymph % (Auto) 26.5 (16.0-40.0) % [place] % (Auto) 5.2 (0.0-15.0) % Eos % (Auto) 5.6 (0.0-7.0) % Baso % (Auto) 0.2 (0.0-1.5) % Neut # (Auto) 3.7 (1.4-5.7) K/uL Lymph # (Auto) 1.6 (0.6-2.4) K/uL [place] # (Auto) 0.3 (0.0-0.8) K/uL Eos # (Auto) 0.3 (0.0-0.7) K/uL Baso # (Auto) 0.0 (0.0-0.1) K/uL Nucleated RBC % 0.0 /100WBC Nucleated RBCs # 0 K/uL Sodium 142 (136-146) mmol/L Potassium 4.0 (3.5-5.1) mmol/L Chloride 101 (98-110) mmol/L Carbon Dioxide 31 (21-31) mmol/L BUN 14 (6.0-23.0) mg/dL Creatinine 1.0 (0.6-1.5) mg/dL Est Cr Clr Drug Dosing 92.69 mL/min Estimated GFR (MDRD) > 60.0 ml/min Glucose 110 (60-110) mg/dL Calcium 8.6 L (8.8-10.8) mg/dL EDDIE Results - Last 24 hrs: Microbiology 05/10/17 22:20 Urine Culture - Final Urine, Voided No Growth Med Orders - Current: Current Medications Acetaminophen (Tylenol) 650 mg PO Q4H PRN PRN Reason: Pain (Mild 1-3)/fever Allopurinol (Zyloprim) 100 mg PO DAILY [facility] Last Admin: 05/12/17 08:38 Dose: 100 mg Amlodipine Besylate (Norvasc) 10 mg PO DAILY [facility] Last Admin: 05/12/17 08:38 Dose: 10 mg Aspirin (Aspirin) 325 mg PO BID [facility] Last Admin: 05/12/17 08:37 Dose: 325 mg Bisacodyl (Dulcolax) 10 mg RECTAL DAILY PRN PRN Reason: Constipation Last Admin: 05/11/17 09:35 Dose: 10 mg Celecoxib (Celebrex) 200 mg PO DAILY [facility] Last Admin: 05/12/17 08:37 Dose: 200 mg Docusate Sodium (Colace) 100 mg PO BID [facility] Last Admin: 05/12/17 08:38 Dose: 100 mg Hydrochlorothiazide (Hydrochlorothiazide) 25 mg PO DAILY [facility] Last Admin: 05/12/17 08:37 Dose: 25 mg Morphine Sulfate (Morphine) 2 mg IVPUSH Q2H PRN PRN Reason: Pain (severe 7-10) Ondansetron HCl (Zofran Odt) 4 mg PO Q4H PRN PRN Reason: nausea, able to take PO Oxycodone HCl (Oxycontin) 20 mg PO Q12HR [facility] Last Admin: 05/12/17 08:38 Dose: 20 mg Oxycodone/Acetaminophen (Percocet 325-5 Mg) 1 tab PO Q4H PRN PRN Reason: Pain (moderate 4-6) Last Admin: 05/11/17 16:43 Dose: 1 tab Polyethylene Glycol (Miralax) 17 gm PO DAILY PRN PRN Reason: Constipation Last Admin: 05/10/17 21:51 Dose: 17 gm Senna/Docusate Sodium (Senna Plus) 1 tab PO BID PRN PRN Reason: Constipation Simvastatin (Zocor) 20 mg PO DAILY [facility] Last Admin: 05/12/17 08:38 Dose: 20 mg Sodium Chloride (Saline Flush) 10 ml FLUSH ASDIRECTED PRN PRN Reason: Keep Vein Open Last Admin: 05/10/17 19:12 Dose: 10 ml Sodium Chloride (Saline Flush) 2.5 ml FLUSH ASDIRECTED PRN PRN Reason: Keep Vein Open Last Admin: 05/10/17 19:12 Dose: 2.5 ml Temazepam (Restoril) 15 mg PO BEDTIME PRN PRN Reason: Sleep Trimethoprim/Sulfamethoxazole (Septra Ds) 1 tab PO BID [facility] Last Admin: 05/12/17 08:38 Dose: 1 tab Discontinued Medications Aspirin (Aspirin) 325 mg PO BID [facility] Last Admin: 05/10/17 21:45 Dose: Not Given Heparin Sodium (Porcine) (Heparin Sodium) 5,000 units SUBCUT Q8H [facility] Last Admin: 05/11/17 04:32 Dose: 5,000 units Piperacillin Sod/Tazobactam (Sod 3.375 gm/ Sodium Chloride) 50 mls @ 100 mls/ hr IV ONETIME ONE Stop: 05/10/17 19:24 Last Admin: 05/10/17 19:13 Dose: 100 mls/hr Vancomycin HCl 1 gm/ Sodium (Chloride) 250 mls @ 250 mls/hr IV ONETIME ONE Stop: 05/10/17 19:55 Last Admin: 05/10/17 19:56 Dose: 250 mls/hr Sodium Chloride (Normal Saline) 1,000 mls @ 999 mls/hr IV STAT ONE Stop: 05/10/17 20:03 Last Admin: 05/10/17 19:13 Dose: 999 mls/hr Sodium Chloride (Normal Saline) 1,000 mls @ 125 mls/hr IV ASDIRECTED [facility] Last Infusion: 05/11/17 10:34 Dose: 125 mls/hr Piperacillin Sod/Tazobactam (Sod 3.375 gm/ Sodium Chloride) 50 mls @ 100 mls/ hr IV Q6H [facility] Last Admin: 05/10/17 21:45 Dose: Not Given Vancomycin HCl 1.5 gm/ Sodium (Chloride) 500 mls @ 333.333 mls/hr IV Q12H [facility] Last Admin: 05/11/17 09:32 Dose: 333.333 mls/hr Piperacillin Sod/Tazobactam (Sod 3.375 gm/ Sodium Chloride) 50 mls @ 100 mls/ hr IV Q6H [facility] Last Admin: 05/11/17 06:13 Dose: 100 mls/hr Morphine Sulfate (Morphine) 2 mg IVPUSH Q2H PRN PRN Reason: Pain (severe 7-10) Stop: 05/11/17 20:51 Potassium Chloride (Klor-Con M20) 40 meq PO ONETIME ONE Stop: 05/10/17 20:44 Last Admin: 05/10/17 21:46 Dose: 40 meq Vancomycin HCl (Pharmacy To Dose - Vancomycin) 1 dose .XX ASDIRECTED TINO - Exam Quality Assessment: Reports: DVT Prophylaxis General: Reports: Alert, Oriented, Cooperative, No Acute Distress HEENT: Reports: Pupils Equal, Pupils Reactive, EOMI, Mucous Membr. Moist/[place] Neck: Reports: Supple Lungs: Reports: Clear to Auscultation, Normal Respiratory Effort Cardiovascular: Reports: Regular Rate, Regular Rhythm GI/Abdominal Exam: Normal Bowel Sounds, Soft, Non-Tender, No Organomegaly, No Distention Back Exam: Reports: Normal Inspection Extremities: Normal Capillary Refill, Pedal Edema (+2 pitting to 2 inches above ankle right lower extremety ), Redness (mild ) Skin: Reports: Warm, Dry, Intact Wound/Incisions: Reports: Healing Well Neurological: Reports: No New Focal Deficit Psy/Mental Status: Reports: Alert, Normal Affect, Normal Mood *Q Meaningful Use (DIS) - VTE *Q VTE Criteria *Q: - Stroke *Q Stroke Criteria *Q: - AMI *Q AMI Criteria *Q:
== END 2017-05-12 12:30 | disposition home or self-care (01) | DRG 383 ==
LOC: MW.ED 18:32 → MW.MS 20:07
PROVIDERS: ADMIT Family Medicine; ATTEND Family Medicine
DX: L03.115 Cellulitis of right lower limb (principal); Z96.651 Presence of right artificial knee joint; I10 Essential (primary) hypertension; E78.5 Hyperlipidemia, unspecified; M10.9 Gout, unspecified; Z87.891 Personal history of nicotine dependence; Z79.899 Other long term (current) drug therapy
CPT/HCPCS: 36415; 71020; 71020-26; 73562-26-RT; 73562-RT; 80048; 80053; 81001; 83605; 85025; 85652; 86140; 87040; 87086; 93971-26-RT; 93971-RT; 96365; 96367; 97110-GP; 97161-GP; 99283; 99284-25; A9270-GY; J1644; J2543; J3370; J7040; J7050

== ENCOUNTER 2019-06-28 08:13 | Emergency (ER) | payer BC ==
--- NOTE | 2019-06-28 08:24 | EDM.PDOC ---
ED HPI GENERAL MEDICAL PROBLEM - General Chief Complaint: Eye Problems Stated Complaint: OBJECT IN EYE Time Seen by Provider: 06/28/19 08:24 Source of Information: Reports: Patient History Limitations: Reports: No Limitations - History of Present Illness INITIAL COMMENTS - FREE TEXT/NARRATIVE: Patient is a 54-year-old male is complaining foreign body sensation on his left eye which started yesterday. Patient had been drilling some metal and white objects yesterday. Symptoms have not gotten better today. He feels one spot that sharp stabbing. He states his looked online and saw a white spot on his cornea. He is having some tearing but no discharge. He denies any eye pain with movement. He has not had previously similar symptoms before. Patient does not wear contacts. Duration: Day(s): Location: Reports: Face Quality: Reports: Burning, Dull Severity: Moderate Improves with: Reports: None Worsens with: Reports: None Associated Symptoms: Reports: No Other Symptoms left eye Pain Score (Numeric/FACES): 7 - Related Data Allergies Allergy/AdvReac Type Severity Reaction Status Date / Time chlorhexidine Allergy Rash Verified 06/28/19 08:25 Home Meds: Home Meds Allopurinol [Zyloprim] 100 mg PO DAILY 11/09/16 [History] Hydrochlorothiazide 25 mg PO DAILY 11/09/16 [History] Simvastatin [Zocor] 20 mg PO DAILY 11/09/16 [History] amLODIPine Besylate [Amlodipine Besylate] 10 mg PO DAILY 11/09/16 [History] Aspirin 325 mg PO BID #60 tablet 05/05/17 [Rx] Past Medical History HEENT History: Reports: Other (See Below) Other HEENT History: wears glasses Cardiovascular History: Reports: High Cholesterol, Hypertension Gastrointestinal History: Reports: Other (See Below) Other Gastrointestinal History: heartburn after surgery Genitourinary History: Reports: None Musculoskeletal History: Reports: Arthritis, Fracture, Gout Other Musculoskeletal History: 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 knee, Endocrine/Metabolic History: Reports: Obesity/BMI 30+ - Infectious Disease History Infectious Disease History: Reports: Chicken Pox - Past Surgical History Head Surgeries/Procedures: Reports: None Musculoskeletal Surgical History: Reports: ORIF, Other (See Below) Other Musculoskeletal Surgeries/Procedures:: surgical tx for fx left ankle, left thumb surgery with tendon repair Social & Family History - Family History Family Medical History: Noncontributory - Caffeine Use Caffeine Use: Reports: None ED ROS GENERAL - Review of Systems Review Of Systems: Comprehensive ROS is negative, except as noted in HPI. ED EXAM GENERAL W FULL EYE - Physical Exam Exam: See Below Exam Limited By: No Limitations General Appearance: Alert, No Apparent Distress Eye Exam: Left Eye: Conjunctival Injection, Foreign Body (With sweeping eye with a Q-tip after applying tetracaine 1 foreign body was removed.) Conjunctiva & Sclera: Left: Injected Cornea Exam: Left: Normal Appearance, Foreign Body, Examined with Flourescein Pupils: Normal Accommodation Head: Atraumatic Neck: Normal Inspection Respiratory/Chest: No Respiratory Distress Extremities: Normal Inspection Neurological: Alert, Oriented Psychiatric: Normal Affect Skin Exam: Warm, Dry Lymphatic: No Adenopathy ED EYE w/ Add Procedure - Eye Procedure Alcaine Drops Administered: Yes Eye FB Removal: Removal w/ Cotton Swab Eye Irrigated w/ Saline (ccs): 20 Course - Vital Signs Text/Narrative:: Foreign body removed from left eye with moist Q-tip. Patient's been started on anti-inflammatory eyedrops and antibiotic ointment. He is advised to return to ER or follow-up with sap architect if he still having symptoms later today. He can return here anytime if he is feeling worse. Last Recorded V/S: Last Vital Signs Temp 36.8 C 06/28/19 08:23 Pulse 92 06/28/19 08:23 Resp 18 06/28/19 08:23 BP 139/93 H 06/28/19 08:23 Pulse Ox 96 06/28/19 08:23 - Orders/Labs/Meds Meds: Medications Discontinued Medications Generic Name Dose Route Start Last Admin Trade Name Ashanti PRN Reason Stop Dose Admin Proparacaine HCl 1 ml 06/28/19 08:30 Proparacaine 0.5% Ophth Soln EYELF 06/28/19 08:31 ONETIME ONE Tetracaine HCl 1 ml 06/28/19 08:31 Tetracaine 0.5% Steri-Unit Yasmin EYELF 06/28/19 08:32 ASDIRECTED ONE Departure - Departure Time of Disposition: 08:59 Disposition: Home, Self-Care 01 Condition: Good Clinical Impression: Foreign body - Discharge Information Referrals: Garret Bah MD [Primary Care Provider] - Forms: ED Department Discharge Additional Instructions: Antibiotic ointment as prescribed. Anti-inflammatory drops as needed. Follow- up with sap architect return to ER symptoms remain. Return to ER anytime if worse. Care Plan Goals: The following information is given to patients seen in the emergency department who are being discharged to home. This information is to outline your options for follow-up care. We provide all patients seen in our emergency department with a follow-up referral. The need for follow-up, as well as the timing and circumstances, are variable depending upon the specifics of your emergency department visit. If you don't have a primary care physician on staff, we will provide you with a referral. We always advise you to contact your personal physician following an emergency department visit to inform them of the circumstance of the visit and for follow-up with them and/or the need for any referrals to a consulting specialist. The emergency department will also refer you to a specialist when appropriate. This referral assures that you have the opportunity for follow-up care with a specialist. All of these measure are taken in an effort to provide you with optimal care, which includes your follow-up. Under all circumstances we always encourage you to contact your private physician who remains a resource for coordinating your care. When calling for follow-up care, please make the office aware that this follow-up is from your recent emergency room visit. If for any reason you are refused follow-up, please contact the [facility] Emergency Department at and asked to speak to the emergency department charge nurse. Sepsis Event Note - Focused Exam Vital Signs: Vital Signs Temp Pulse Resp BP Pulse Ox 06/28/19 08:23 36.8 C 92 18 139/93 H 96 Date Exam was Performed: 06/28/19 Time Exam was Performed: 08:54
[2019-06-28 08:25] VITALS: BP 139/93; PULSE 92
[2019-06-28] MEDS ORDERED: Proparacaine 0.5% Ophth Soln 15 ML Bottle EYELF ONE (08:30)
[2019-06-28] MEDS ORDERED: Tetracaine HCl/PF 0.5% 4 ML Bottle EYELF ONE (08:31)
== END 2019-06-28 09:26 | disposition home or self-care (01) ==
LOC: MW.ED 08:13
DX: T15.02XA Foreign body in cornea, left eye, initial encounter (principal); I10 Essential (primary) hypertension; E78.00 Pure hypercholesterolemia, unspecified; Z79.82 Long term (current) use of aspirin; Z79.899 Other long term (current) drug therapy; Z88.8 Allergy status to other drugs, medicaments and biological substances
CPT/HCPCS: 65220; 99283-25

== ENCOUNTER 2020-06-20 16:46 | Emergency (ER) | payer BC ==
[2020-06-20] MEDS ORDERED: Sodium Chloride 0.9% 10 ML Syringe FLUSH PRN (16:56)
[2020-06-20] MEDS ORDERED: Sodium Chloride 0.9% 2.5 ML Syringe FLUSH PRN (16:56)
[2020-06-20] MEDS ORDERED: Sodium Chloride 0.9% 1,000 ML IV ONE (16:57)
--- NOTE | 2020-06-20 16:59 | EDM.PDOC ---
<DavidSky Kris - Last Filed: 06/20/20 21:20> ED HPI GENERAL MEDICAL PROBLEM - General Chief Complaint: Respiratory Problem Stated Complaint: SURGERY COMPLICATIONS/SHORTNESS OF BREATH Time Seen by Provider: 06/20/20 16:54 - Related Data Allergies Allergy/AdvReac Type Severity Reaction Status Date / Time No Known Allergies Allergy Verified 06/20/20 17:00 Home Meds: Home Meds Allopurinol [Zyloprim] 100 mg PO DAILY 11/09/16 [History] Hydrochlorothiazide 25 mg PO DAILY 11/09/16 [History] Simvastatin [Zocor] 20 mg PO DAILY 11/09/16 [History] amLODIPine Besylate [Amlodipine Besylate] 10 mg PO DAILY 11/09/16 [History] Cholecalciferol (Vitamin D3) [Vitamin D3] 5,000 unit PO DAILY 06/13/20 [History] Multivitamin [Daily Nedra] 1 tab PO DAILY 06/13/20 [History] Aspirin [Aspirin EC] 325 mg PO BID #84 tab 06/17/20 [Rx] Cyclobenzaprine [Flexeril] 10 mg PO BID PRN #20 tab 06/17/20 [Rx] oxyCODONE 5 - 10 mg PO Q4H PRN #40 tab 06/17/20 [Rx] Azithromycin [Zithromax] 250 mg PO DAILY 4 Days #4 tablet 06/20/20 [Rx] Course - Re-Assessments/Exams Free Text/Narrative Re-Assessment/Exam: 06/20/20 20:39 CT PE is negative. Patient did spike a fever here a small white count but no source of fever. Patient had a small patient emphysema on CT scan but UA is good. Will give patient antibiotics and likely discharge home. Patient ox level remains around 94% the patient is a previous smoker may be patient's baseline. Patient currently comfortable right now resting in the bed. Patient has no pain or increased welling of his knee from previous surgery. Patient will be discharged and given strict return precautions. Departure - Departure Time of Disposition: 21:20 Disposition: Home, Self-Care 01 Condition: Good Clinical Impression: SOB (shortness of breath), Fever - Discharge Information *PRESCRIPTION DRUG MONITORING PROGRAM REVIEWED*: Not Applicable *COPY OF PRESCRIPTION DRUG MONITORING REPORT IN PATIENT FLOR: Not Applicable Prescriptions: Azithromycin [Zithromax] 250 mg PO DAILY 4 Days #4 tablet Instructions: Fever, Adult, [id number] Referrals: Garret Bah MD [Primary Care Provider] - Forms: ED Department Discharge Additional Instructions: The following information is given to patients seen in the emergency department who are being discharged to home. This information is to outline your options for follow-up care. We provide all patients seen in our emergency department with a follow-up referral. The need for follow-up, as well as the timing and circumstances, are variable depending upon the specifics of your emergency department visit. If you don't have a primary care physician on staff, we will provide you with a referral. We always advise you to contact your personal physician following an emergency department visit to inform them of the circumstance of the visit and for follow-up with them and/or the need for any referrals to a consulting specialist. The emergency department will also refer you to a specialist when appropriate. This referral assures that you have the opportunity for follow-up care with a specialist. All of these measure are taken in an effort to provide you with optimal care, which includes your follow-up. Under all circumstances we always encourage you to contact your private physician who remains a resource for coordinating your care. When calling for follow-up care, please make the office aware that this follow-up is from your recent emergency room visit. If for any reason you are refused follow-up, please contact the [facility] Emergency Department at and asked to speak to the emergency department charge nurse. Please follow up with your primary care physician. If you do not have a primary care physician, see below: [facility] [address] [place] [id number] [facility] [address] [place] [id number] Please continue to follow-up with orthopedic doctor for care of your knee. You have a fever with unknown source. We sent you home with additional azithromycin antibiotics to take these for the next 4 days. If you continue to have fever or develop more shortness of breath please return to the ED immediately otherwise follow-up with your primary care physician as planned. <Mateusz Wiggins - Last Filed: 06/22/20 15:32> ED HPI GENERAL MEDICAL PROBLEM - General Source of Information: Reports: Patient History Limitations: Reports: No Limitations - History of Present Illness INITIAL COMMENTS - FREE TEXT/NARRATIVE: 55-year-old male with history of HTN, HLD, smoker status post same-day surgery right total knee replacement on 06/18 at [place] presents with shortness of breath and cough. He started feeling dyspneic the day after surgery, and started having productive cough with white sputum last night. He also notes left-sided chest pain only with coughing. Associated with chills, generalized malaise and myalgia. Postoperatively he was prescribed oxycodone 5 mg and a muscle relaxer. ROS: A 10-point review of systems, other than pertinent positives and negatives as stated per HPI, is otherwise negative Past medical history: No additional pertinent history Past Surgical history: No additional pertinent history Social history: No additional pertinent history Family history: No additional pertinent history PHYSICAL EXAM General: AOx4, GCS = 15, No distress HEENT: dry mucous membrane Neck: supple, no meningismus, no Kernig or Brudzinski Cardiac: S1S2 tachycardic Respiratory: CTAB, no crackles or rales, no wheezing Abdomen: Soft, nontender, no rebound or guarding, nondistended, no pulsatile mass. Back: nontender Musculoskeletal: NVI distally, no deformity, right knee tender to palpation, no tenderness to posterior calf or thigh. Neuro: No focal deficits, CN 2 - 12 WNL. Right Knee Pain Score (Numeric/FACES): 5 Past Medical History HEENT History: Reports: Impaired Vision, Other (See Below) Other HEENT History: wears glasses, has dentures Cardiovascular History: Reports: High Cholesterol, Hypertension Respiratory History: Reports: SOB Gastrointestinal History: Reports: Colon Polyp, Other (See Below) Other Gastrointestinal History: heartburn after surgery, tubulovillous adenoma of large intestine Genitourinary History: Reports: None [employer] History: Reports: None Musculoskeletal History: Reports: Arthritis, Fracture, Gout, Osteoarthritis Other Musculoskeletal History: 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 knee, Neurological History: Reports: Vertigo Psychiatric History: Reports: Other (See Below) Other Psychiatric History: fatigue Endocrine/Metabolic History: Reports: Obesity/BMI 30+ Hematologic History: Reports: Other (See Below) Other Hematologic History: hypokalemia Immunologic History: Reports: None Oncologic (Cancer) History: Reports: None Dermatologic History: Reports: Other (See Below) Other Dermatologic History: contact dermatitis - Infectious Disease History Infectious Disease History: Reports: Chicken Pox - Past Surgical History Head Surgeries/Procedures: Reports: None HEENT Surgical History: Reports: None Cardiovascular Surgical History: Reports: None Respiratory Surgical History: Reports: None GI Surgical History: Reports: None Female Surgical History: Reports: None Male Surgical History: Reports: None Endocrine Surgical History: Reports: None Neurological Surgical History: Reports: None Musculoskeletal Surgical History: Reports: ORIF, Other (See Below) Other Musculoskeletal Surgeries/Procedures:: surgical tx for fx left ankle, left thumb surgery with tendon repair, right total knee replacement Oncologic Surgical History: Reports: None Dermatological Surgical History: Reports: None Social & Family History - Family History Family Medical History: No Pertinent Family History - Caffeine Use Caffeine Use: Reports: Coffee, Soda ED ROS GENERAL - Review of Systems Review Of Systems: See Below (see dictation) ED EXAM, GENERAL - Physical Exam Exam: See Below (see dictation) #1 Interpretation EKG Interpretation Comments: Heart rate = 108 bpm, sinus tachycardia, normal QRS interval, no STEMI. EKG and rhythm strip interpreted by me at 1720 Course - Vital Signs Last Recorded V/S: Last Vital Signs Temp 100.4 F 06/20/20 21:30 Pulse 91 06/20/20 21:30 Resp 18 06/20/20 21:30 BP 132/77 06/20/20 21:30 Pulse Ox 93 L 06/20/20 21:30 - Orders/Labs/Meds Labs: Laboratory Tests 06/20/20 06/20/20 06/20/20 Range/Units 17:29 17:29 17:29 WBC 12.42 H (4.0-11.0) K/uL RBC 4.34 L (4.50-5.90) M/uL Hgb 13.4 (13.0-17.0) g/dL Hct 38.7 (38.0-50.0) % MCV 89.2 (80.0-98.0) fL MCH 30.9 (27.0-32.0) pg MCHC 34.6 (31.0-37.0) g/dL RDW Std Deviation 42.9 (28.0-62.0) fl RDW Coeff of Jose 13 (11.0-15.0) % Plt Count 175 (150-400) K/uL MPV 9.40 (7.40-12.00) fL Neut % (Auto) 77.5 (48.0-80.0) % Lymph % (Auto) 15.3 L (16.0-40.0) % [place] % (Auto) 6.4 (0.0-15.0) % Eos % (Auto) 0.6 (0.0-7.0) % Baso % (Auto) 0.2 (0.0-1.5) % Neut # (Auto) 9.6 H (1.4-5.7) K/uL Lymph # (Auto) 1.9 (0.6-2.4) K/uL [place] # (Auto) 0.8 (0.0-0.8) K/uL Eos # (Auto) 0.1 (0.0-0.7) K/uL Baso # (Auto) 0.0 (0.0-0.1) K/uL Nucleated RBC % 0.0 /100WBC Nucleated RBCs # 0 K/uL Lactate (0.20-2.00) mmol/L Sodium 136 (136-148) mmol/L Potassium 2.9 L (3.5-5.1) mmol/L Chloride 92 L (98-107) mmol/L Carbon Dioxide 31.4 (21.0-32.0) mmol/L BUN 18 (7.0-18.0) mg/dL Creatinine 1.4 H (0.8-1.3) mg/dL Est Cr Clr Drug Dosing 63.90 mL/min Estimated GFR (MDRD) 52.2 ml/min Glucose 140 H (74-106) mg/dL Calcium 9.3 (8.5-10.1) mg/dL Total Bilirubin 2.9 H (0.2-1.0) mg/dL AST 45 H (15-37) IU/L ALT 56 (14-63) IU/L Alkaline Phosphatase 87 (46-116) U/L Troponin I < 0.050 (0.000-0.056) ng/mL C-Reactive Protein >12.00 (0.00-0.90) mg/dL B-Natriuretic Peptide 35 (<100) PG/ML Total Protein 7.6 (6.4-8.2) g/dL Albumin 3.1 L (3.4-5.0) g/dL Globulin 4.5 H (2.6-4.0) g/dL Albumin/Globulin Ratio 0.7 L (0.9-1.6) Urine Color Urine Appearance Urine pH (5.0-8.0) Ur Specific [place] (1.001-1.035) Urine Protein (NEGATIVE) mg/dL Urine Glucose (UA) (NEGATIVE) mg/dL Urine Ketones (NEGATIVE) mg/dL Urine Occult Blood (NEGATIVE) Urine Nitrite (NEGATIVE) Urine Bilirubin (NEGATIVE) Urine Urobilinogen (<2.0) EU/dL Ur Leukocyte Esterase (NEGATIVE) Urine RBC (0-2/HPF) Urine WBC (0-5/HPF) Ur Epithelial Cells (NONE-FEW) Urine Bacteria (NEGATIVE) SARS-CoV-2 RNA (IAM) (NEGATIVE) 06/20/20 06/20/20 06/20/20 Range/Units 19:15 19:50 20:17 WBC (4.0-11.0) K/uL RBC (4.50-5.90) M/uL Hgb (13.0-17.0) g/dL Hct (38.0-50.0) % MCV (80.0-98.0) fL MCH (27.0-32.0) pg MCHC (31.0-37.0) g/dL RDW Std Deviation (28.0-62.0) fl RDW Coeff of Jose (11.0-15.0) % Plt Count (150-400) K/uL MPV (7.40-12.00) fL Neut % (Auto) (48.0-80.0) % Lymph % (Auto) (16.0-40.0) % [place] % (Auto) (0.0-15.0) % Eos % (Auto) (0.0-7.0) % Baso % (Auto) (0.0-1.5) % Neut # (Auto) (1.4-5.7) K/uL Lymph # (Auto) (0.6-2.4) K/uL [place] # (Auto) (0.0-0.8) K/uL Eos # (Auto) (0.0-0.7) K/uL Baso # (Auto) (0.0-0.1) K/uL Nucleated RBC % /100WBC Nucleated RBCs # K/uL Lactate 1.2 (0.20-2.00) mmol/L Sodium (136-148) mmol/L Potassium (3.5-5.1) mmol/L Chloride (98-107) mmol/L Carbon Dioxide (21.0-32.0) mmol/L BUN (7.0-18.0) mg/dL Creatinine (0.8-1.3) mg/dL Est Cr Clr Drug Dosing mL/min Estimated GFR (MDRD) ml/min Glucose (74-106) mg/dL Calcium (8.5-10.1) mg/dL Total Bilirubin (0.2-1.0) mg/dL AST (15-37) IU/L ALT (14-63) IU/L Alkaline Phosphatase (46-116) U/L Troponin I (0.000-0.056) ng/mL C-Reactive Protein (0.00-0.90) mg/dL B-Natriuretic Peptide (<100) PG/ML Total Protein (6.4-8.2) g/dL Albumin (3.4-5.0) g/dL Globulin (2.6-4.0) g/dL Albumin/Globulin Ratio (0.9-1.6) Urine Color YELLOW Urine Appearance CLEAR Urine pH 5.0 (5.0-8.0) Ur Specific [place] 1.015 (1.001-1.035) Urine Protein NEGATIVE (NEGATIVE) mg/dL Urine Glucose (UA) NEGATIVE (NEGATIVE) mg/dL Urine Ketones NEGATIVE (NEGATIVE) mg/dL Urine Occult Blood TRACE-INTACT H (NEGATIVE) Urine Nitrite NEGATIVE (NEGATIVE) Urine Bilirubin NEGATIVE (NEGATIVE) Urine Urobilinogen 0.2 (<2.0) EU/dL Ur Leukocyte Esterase NEGATIVE (NEGATIVE) Urine RBC 0-2 (0-2/HPF) Urine WBC 0-2 (0-5/HPF) Ur Epithelial Cells RARE (NONE-FEW) Urine Bacteria FEW (NEGATIVE) SARS-CoV-2 RNA (IAM) NEGATIVE (NEGATIVE) Meds: Medications Discontinued Medications Generic Name Dose Route Start Last Admin Trade Name Freq PRN Reason Stop Dose Admin Acetaminophen 1,000 mg 06/20/20 19:33 06/20/20 19:50 Tylenol Extra Strength PO 06/20/20 19:34 1,000 mg ONETIME ONE Administration Azithromycin 500 mg 06/20/20 20:21 06/20/20 20:25 Zithromax PO 06/20/20 20:22 500 mg Q24H ONE Administration Sodium Chloride 1,000 mls @ 999 mls/hr 06/20/20 16:57 06/20/20 17:31 Normal Saline IV 06/20/20 17:57 999 mls/hr .Bolus ONE Administration Ibuprofen 800 mg 06/20/20 20:21 06/20/20 20:25 Motrin PO 06/20/20 20:22 800 mg ONETIME ONE Administration Iopamidol 85 ml 06/20/20 19:13 06/20/20 19:14 Isovue Multipack-370 (76%) IVPUSH 06/20/20 19:14 85 ml ONETIME STA Administration Potassium Chloride 40 meq 06/20/20 18:50 06/20/20 19:10 Potassium Chloride PO 06/20/20 18:51 40 meq ONETIME ONE Administration Sodium Chloride 10 ml 06/20/20 16:56 06/20/20 17:31 Saline Flush FLUSH 10 ml ASDIRECTED PRN Administration Keep Vein Open Sodium Chloride 2.5 ml 06/20/20 16:56 06/20/20 17:31 Saline Flush FLUSH 2.5 ml ASDIRECTED PRN Administration Keep Vein Open - Re-Assessments/Exams Free Text/Narrative Re-Assessment/Exam: 06/20/20 19:00 Patient to be signed out to Dr. Sky Hernandez, to follow-up with diagnostic studies and ultimate disposition.
[2020-06-20 18:05] LABS: BLOOD UREA NITROGEN,BUN 18 mg/dL (7.0-18.0); CARBON DIOXIDE,CO2 31.4 mmol/L (21.0-32.0); CHLORIDE,CL 92 mmol/L (98-107); GLUCOSE RANDOM 140 mg/dL (74-106); POTASSIUM,K 2.9 mmol/L (3.5-5.1); SODIUM,NA 136 mmol/L (136-148)
--- NOTE | 2020-06-20 18:14 | CR ---
INDICATION: dyspnea TECHNIQUE: Chest 1 view. COMPARISON: 05/31/20 FINDINGS: Cardiovascular and mediastinum: Heart size and vasculature are normal in caliber and appearance. Mediastinum is within normal limits. Lungs and pleural space: Lungs are clear. No sign of infiltrate or mass. No sign of pleural effusion. No pneumothorax. Bones and soft tissues: No significant findings. IMPRESSION: Unremarkable chest. Dictated by: Osmany Pillai MD @ 06/20/2020 18:13:30 (Electronically Signed)
[2020-06-20] MEDS ORDERED: Potassium Chloride 10% 20 MEQ/15 ML Soln 30 ML UD Cup PO ONE (18:50)
[2020-06-20] MEDS ORDERED: Iopamidol 755 MG/ML 500 ML Multipack Bottle IVPUSH STA (19:13)
--- NOTE | 2020-06-20 19:25 | CT ---
INDICATION: Dyspnea. COMPARISON: Plain film same date. TECHNIQUE: 85 mL Isovue-370 IV contrast. FINDINGS: Suboptimal bolus timing. No definitive pulmonary embolism filling defects. Aortic caliber is normal with no dissection. No pathologic adenopathy. Low attenuation of liver parenchyma. Mild paraseptal emphysematous changes in the upper lobes. No acute cardiopulmonary disease. No acute bone findings. IMPRESSION: 1. No pulmonary embolism however inadequate bolus timing limits diagnostic sensitivity. Repeat as clinically indicated. 2. Mild paraseptal emphysema. Please note that all CT scans at this facility use dose modulation, iterative reconstruction, and/or weight-based dosing when appropriate to reduce radiation dose to as low as reasonably achievable. Dictated by Cruz Garcia MD @ Jun 20 2020 7:24PM Signed by Dr. Cruz Garcia @ Jun 20 2020 7:24PM
[2020-06-20] MEDS ORDERED: Acetaminophen 500 MG Tab PO ONE (19:33)
[2020-06-20] MEDS ORDERED: Ibuprofen 800 MG Tab PO ONE (20:21)
[2020-06-20] MEDS ORDERED: Azithromycin 250 MG Tab PO ONE (20:21)
[2020-06-20 21:36] VITALS: BP 132/77; PULSE 91
== END 2020-06-20 21:30 | disposition home or self-care (01) ==
LOC: MW.ED 16:46
DX: R06.02 Shortness of breath (principal); R50.9 Fever, unspecified; Z91.048 Other nonmedicinal substance allergy status; Z20.828 Contact with and (suspected) exposure to other viral communicable diseases
CPT/HCPCS: 36415; 71045; 71275; 80053; 81001; 83605; 83880; 84484; 85025; 86140; 87040; 87635; 93005; 99285; A9270; J7030; Q9967; 93010; 99284; U0002

== ENCOUNTER 2021-02-27 08:00 | Inpatient (IN) | payer BC ==
[2021-02-27] MEDS ORDERED: Albuterol/Ipratropium 3.0-0.5 MG/3 ML Neb Soln NEB ONE (09:09)
--- NOTE | 2021-02-27 09:17 | PCM.EKG ---
#1 Interpretation EKG Date: 02/27/21 Time: 09:07 Rhythm: NSR Rate (Beats/Min): 88 [place]: Normal P-Wave: Present QRS: Normal ST-T: Normal QT: Normal Comparison: No Change (06/20/20) EKG Interpretation Comments: Sinus Rhythm
--- NOTE | 2021-02-27 09:47 | CR ---
INDICATION: Shortness of breath and wheezing. TECHNIQUE: Chest 1 views. COMPARISON: 06/20/2020. FINDINGS: Cardiovascular and mediastinum: Heart size and vasculature are normal in caliber and appearance. Lungs and pleural spaces: Infiltrate is present in the right lower lobe. Otherwise unremarkable. Bones and soft tissues: No significant findings. IMPRESSION: Right lower lobe pneumonia. Dictated by Odell Tony MD @ 02/27/2021 9:45:57 AM (Electronically Signed)
[2021-02-27] MEDS ORDERED: cefTRIAXone 2 GM in Premix Bag 1 BAG IV ONE (10:07)
[2021-02-27] MEDS ORDERED: Lactated Ringers 1,000 ML IV SCH ×2 (10:15)
[2021-02-27] MEDS ORDERED: Azithromycin 500 MG in Sodium Chloride 0.9% 250 ML IV SCH (10:15)
[2021-02-27 10:43] LABS: BLOOD UREA NITROGEN,BUN 18 mg/dL (7.0-18.0); CARBON DIOXIDE,CO2 27.6 mmol/L (21.0-32.0); CHLORIDE,CL 94 mmol/L (98-107); GLUCOSE RANDOM 120 mg/dL (74-106); POTASSIUM,K 3.5 mmol/L (3.5-5.1); SODIUM,NA 135 mmol/L (136-148)
[2021-02-27] MEDS ORDERED: Dexamethasone 4 MG Tab PO ONE (13:51)
[2021-02-27] MEDS ORDERED: REMDESIVIR 200 MG in Sodium Chloride 0.9% 250 ML IV ONE ×2 (13:51→14:00)
[2021-02-27 14:46] LABS: BLOOD UREA NITROGEN,BUN 16 mg/dL (7.0-18.0); CARBON DIOXIDE,CO2 29.8 mmol/L (21.0-32.0); CHLORIDE,CL 93 mmol/L (98-107); GLUCOSE RANDOM 109 mg/dL (74-106); POTASSIUM,K 3.5 mmol/L (3.5-5.1); SODIUM,NA 132 mmol/L (136-148)
[2021-02-27] MEDS ORDERED: Melatonin 3 MG Tab PO PRN (16:03)
[2021-02-27] MEDS ORDERED: Benzonatate 100 MG Cap PO PRN (16:03)
--- NOTE | 2021-02-27 16:19 | PCM.HP.2 ---
H&P History of Present Illness - General Date of Service: 02/27/21 Admit Problem/Dx: Admission Diagnosis/Problem Admission Diagnosis/Problem Hypoxia - History of Present Illness Initial Comments - Free Text/Narative: 56 yo male who presents with ten day history of cough, fever and several day history of shortness of breath. Patient was noted to be hypoxic requring 2 L NC to keep sats above 90%. He was COVID positive and CXR reported right lower lobe pneumonia. ribcage Pain Score (Numeric/FACES): 2 - Related Data Allergies/Adverse Reactions: Allergies Allergy/AdvReac Type Severity Reaction Status Date / Time No Known Allergies Allergy Verified 02/27/21 17:51 Home Medications: Home Meds Allopurinol [Zyloprim] 100 mg PO DAILY 11/09/16 [History] Hydrochlorothiazide 25 mg PO DAILY 11/09/16 [History] Simvastatin [Zocor] 20 mg PO DAILY 11/09/16 [History] amLODIPine Besylate [Amlodipine Besylate] 10 mg PO DAILY 11/09/16 [History] Past Medical History HEENT History: Reports: Impaired Vision, Other (See Below) Other HEENT History: wears glasses, has dentures Cardiovascular History: Reports: High Cholesterol, Hypertension Respiratory History: Reports: SOB Gastrointestinal History: Reports: Colon Polyp, Other (See Below) Other Gastrointestinal History: heartburn after surgery, tubulovillous adenoma of large intestine Genitourinary History: Reports: None ANIMAL TRAPPER History: Reports: None Musculoskeletal History: Reports: Arthritis, Fracture, Gout, Osteoarthritis Other Musculoskeletal History: 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 knee, Neurological History: Reports: Vertigo Psychiatric History: Reports: None Other Psychiatric History: fatigue Endocrine/Metabolic History: Reports: Obesity/BMI 30+ Hematologic History: Reports: Other (See Below) Other Hematologic History: hypokalemia Immunologic History: Reports: None Oncologic (Cancer) History: Reports: None Dermatologic History: Reports: Other (See Below) Other Dermatologic History: contact dermatitis - Infectious Disease History Infectious Disease History: Reports: Chicken Pox - Past Surgical History Head Surgeries/Procedures: Reports: None HEENT Surgical History: Reports: None Cardiovascular Surgical History: Reports: None Respiratory Surgical History: Reports: None GI Surgical History: Reports: None Male Surgical History: Reports: None Endocrine Surgical History: Reports: None Neurological Surgical History: Reports: None Musculoskeletal Surgical History: Reports: ORIF, Other (See Below) Other Musculoskeletal Surgeries/Procedures:: surgical tx for fx left ankle, left thumb surgery with tendon repair, right total knee replacement Oncologic Surgical History: Reports: None Dermatological Surgical History: Reports: None Social & Family History - Family History Family Medical History: No Pertinent Family History - Tobacco Use Tobacco Use Status *Q: Former Tobacco User Used Tobacco, but Quit: Yes Month/Year Tobacco Last Used: 2016 - Caffeine Use Caffeine Use: Reports: Coffee - Recreational Drug Use Recreational Drug Use: No H&P Review of Systems - Review of Systems: Review Of Systems: Comprehensive ROS is negative, except as noted in HPI. Exam - Exam Exam: See Below - Vital Signs Vital Signs: Last Vital Signs Temp 36.9 C 02/27/21 08:41 Pulse 85 02/27/21 16:16 Resp 20 02/27/21 16:16 BP 131/59 L 02/27/21 16:16 Pulse Ox 88 L 02/27/21 16:16 Weight: 115.666 kg - Exam General: Alert, Oriented HEENT: Mucosa Moist & [place] Lungs: Normal Respiratory Effort, Rhonchi Cardiovascular: Regular Rate, Regular Rhythm GI/Abdominal Exam: Normal Bowel Sounds, Soft, Non-Tender Extremities: Non-Tender, No Pedal Edema Skin: Warm, Dry, Intact - Patient Data Lab Results Last 24 hrs: Laboratory Results - last 24 hr 02/27/21 02/27/21 02/27/21 Range/Units 08:50 10:02 10:02 WBC 9.50 (4.0-11.0) K/uL RBC 4.57 (4.50-5.90) M/uL Hgb 14.0 (13.0-17.0) g/dL Hct 40.0 (38.0-50.0) % MCV 87.5 (80.0-98.0) fL MCH 30.6 (27.0-32.0) pg MCHC 35.0 (31.0-37.0) g/dL RDW Std Deviation 41.8 (28.0-62.0) fl RDW Coeff of Jose 13 (11.0-15.0) % Plt Count 250 (150-400) K/uL MPV 10.00 (7.40-12.00) fL Neut % (Auto) 72.5 (48.0-80.0) % Lymph % (Auto) 21.8 (16.0-40.0) % [place] % (Auto) 5.5 (0.0-15.0) % Eos % (Auto) 0.1 (0.0-7.0) % Baso % (Auto) 0.1 (0.0-1.5) % Neut # (Auto) 6.9 H (1.4-5.7) K/uL Lymph # (Auto) 2.1 (0.6-2.4) K/uL [place] # (Auto) 0.5 (0.0-0.8) K/uL Eos # (Auto) 0.0 (0.0-0.7) K/uL Baso # (Auto) 0.0 (0.0-0.1) K/uL Nucleated RBC % 0.0 /100WBC Nucleated RBCs # 0 K/uL INR Sodium 135 L (136-148) mmol/L Potassium 3.5 (3.5-5.1) mmol/L Chloride 94 L (98-107) mmol/L Carbon Dioxide 27.6 (21.0-32.0) mmol/L BUN 18 (7.0-18.0) mg/dL Creatinine 1.3 (0.8-1.3) mg/dL Est Cr Clr Drug Dosing 67.98 mL/min Estimated GFR (MDRD) 56.7 ml/min Glucose 120 H (74-106) mg/dL Lactic Acid (0.4-2.0) mmol/L Calcium 8.0 L (8.5-10.1) mg/dL Magnesium 2.5 H (1.8-2.4) mg/dL Total Bilirubin 2.9 H (0.2-1.0) mg/dL Direct Bilirubin (0.0-0.5) mg/dL AST (15-37) IU/L ALT (14-63) IU/L Alkaline Phosphatase (46-116) U/L Troponin I < 0.050 (0.000-0.056) ng/mL C-Reactive Protein (0.00-0.90) mg/dL Total Protein (6.4-8.2) g/dL Albumin (3.4-5.0) g/dL Globulin (2.6-4.0) g/dL Albumin/Globulin Ratio (0.9-1.6) SARS-CoV-2 RNA (IAM) POSITIVE H (NEGATIVE) 02/27/21 02/27/21 02/27/21 Range/Units 10:02 10:23 14:10 WBC (4.0-11.0) K/uL RBC (4.50-5.90) M/uL Hgb (13.0-17.0) g/dL Hct (38.0-50.0) % MCV (80.0-98.0) fL MCH (27.0-32.0) pg MCHC (31.0-37.0) g/dL RDW Std Deviation (28.0-62.0) fl RDW Coeff of Jose (11.0-15.0) % Plt Count (150-400) K/uL MPV (7.40-12.00) fL Neut % (Auto) (48.0-80.0) % Lymph % (Auto) (16.0-40.0) % [place] % (Auto) (0.0-15.0) % Eos % (Auto) (0.0-7.0) % Baso % (Auto) (0.0-1.5) % Neut # (Auto) (1.4-5.7) K/uL Lymph # (Auto) (0.6-2.4) K/uL [place] # (Auto) (0.0-0.8) K/uL Eos # (Auto) (0.0-0.7) K/uL Baso # (Auto) (0.0-0.1) K/uL Nucleated RBC % /100WBC Nucleated RBCs # K/uL INR 1.37 Sodium 132 L (136-148) mmol/L Potassium 3.5 (3.5-5.1) mmol/L Chloride 93 L (98-107) mmol/L Carbon Dioxide 29.8 (21.0-32.0) mmol/L BUN 16 (7.0-18.0) mg/dL Creatinine 1.1 (0.8-1.3) mg/dL Est Cr Clr Drug Dosing TNP mL/min Estimated GFR (MDRD) > 60.0 ml/min Glucose 109 H (74-106) mg/dL Lactic Acid 1.6 (0.4-2.0) mmol/L Calcium 7.9 L (8.5-10.1) mg/dL Magnesium (1.8-2.4) mg/dL Total Bilirubin 2.2 H (0.2-1.0) mg/dL Direct Bilirubin 0.60 H (0.0-0.5) mg/dL AST 65 H (15-37) IU/L ALT 108 H (14-63) IU/L Alkaline Phosphatase 74 (46-116) U/L Troponin I (0.000-0.056) ng/mL C-Reactive Protein (0.00-0.90) mg/dL Total Protein 5.9 L (6.4-8.2) g/dL Albumin 2.2 L (3.4-5.0) g/dL Globulin 3.7 (2.6-4.0) g/dL Albumin/Globulin Ratio 0.6 L (0.9-1.6) SARS-CoV-2 RNA (IAM) (NEGATIVE) 02/27/21 Range/Units 14:10 WBC (4.0-11.0) K/uL RBC (4.50-5.90) M/uL Hgb (13.0-17.0) g/dL Hct (38.0-50.0) % MCV (80.0-98.0) fL MCH (27.0-32.0) pg MCHC (31.0-37.0) g/dL RDW Std Deviation (28.0-62.0) fl RDW Coeff of Jose (11.0-15.0) % Plt Count (150-400) K/uL MPV (7.40-12.00) fL Neut % (Auto) (48.0-80.0) % Lymph % (Auto) (16.0-40.0) % [place] % (Auto) (0.0-15.0) % Eos % (Auto) (0.0-7.0) % Baso % (Auto) (0.0-1.5) % Neut # (Auto) (1.4-5.7) K/uL Lymph # (Auto) (0.6-2.4) K/uL [place] # (Auto) (0.0-0.8) K/uL Eos # (Auto) (0.0-0.7) K/uL Baso # (Auto) (0.0-0.1) K/uL Nucleated RBC % /100WBC Nucleated RBCs # K/uL INR Sodium (136-148) mmol/L Potassium (3.5-5.1) mmol/L Chloride (98-107) mmol/L Carbon Dioxide (21.0-32.0) mmol/L BUN (7.0-18.0) mg/dL Creatinine (0.8-1.3) mg/dL Est Cr Clr Drug Dosing mL/min Estimated GFR (MDRD) ml/min Glucose (74-106) mg/dL Lactic Acid (0.4-2.0) mmol/L Calcium (8.5-10.1) mg/dL Magnesium (1.8-2.4) mg/dL Total Bilirubin (0.2-1.0) mg/dL Direct Bilirubin (0.0-0.5) mg/dL AST (15-37) IU/L ALT (14-63) IU/L Alkaline Phosphatase (46-116) U/L Troponin I (0.000-0.056) ng/mL C-Reactive Protein 14.50 H (0.00-0.90) mg/dL Total Protein (6.4-8.2) g/dL Albumin (3.4-5.0) g/dL Globulin (2.6-4.0) g/dL Albumin/Globulin Ratio (0.9-1.6) SARS-CoV-2 RNA (IAM) (NEGATIVE) Result Diagrams: 02/28/21 05:45 02/28/21 05:45 Earl Results Last 24 hrs: Microbiology 02/27/21 08:50 Influenza Type A Antigen Screen - Final Nasopharyngeal Swab NEGATIVE INFLUENZA A VIRUS AG REFERENCE RANGE: NEGATIVE Influenza Type B Antigen Screen - Final NEGATIVE INFLUENZA B VIRUS AG REFERENCE RANGE: NEGATIVE Sepsis Event Note - Evaluation Sepsis Screening Result: No Definite Risk - Focused Exam Vital Signs: Vital Signs Temp Pulse Resp BP Pulse Ox 02/27/21 16:16 85 20 131/59 L 88 L 02/27/21 12:43 88 120/69 94 L 02/27/21 12:14 90 110/59 L 92 L 02/27/21 11:44 92 115/60 92 L 02/27/21 11:14 92 128/63 91 L 02/27/21 10:43 93 123/66 93 L 02/27/21 10:25 96 114/65 93 L 02/27/21 09:50 106 H 90 L 02/27/21 08:53 91 L 02/27/21 08:41 36.9 C 99 20 118/65 89 L Problem List Initiated/Reviewed/Updated: Yes Orders Last 24hrs: Active Orders 24 hr Category Date Time Status Admission Status [Patient Status] [ADT] Stat ADT 02/27/21 13:54 Active Cardiac Monitoring [RC] . DIRECTED Care 02/27/21 09:10 Active Pulse Oximetry [RC] ASDIRECTED Care 02/27/21 09:10 Active RT Aerosol Therapy [RC] ASDIRECTED Care 02/27/21 09:09 Active RT Post Treatment Assessment [RC] Click to Edit Care 02/27/21 16:03 Ordered RT Pre-Treatment Assessment [RC] Click to Edit Care 02/27/21 16:03 Ordered CULTURE BLOOD [BC] Stat Lab 02/27/21 10:23 Received CULTURE BLOOD [BC] Stat Lab 02/27/21 10:33 Received Albuterol/Ipratropium [Combivent Respimat] Med 02/27/21 16:03 Ordered 1 gm INH QID PRN Azithromycin [Zithromax] Med 02/28/21 16:00 Ordered 500 mg IV Q24H Azithromycin [Zithromax] 500 mg Med 02/27/21 10:15 Active Sodium Chloride 0.9% [Normal Saline (AdvBag)] 250 ml IV ONETIME Benzonatate [Tessalon Perles] Med 02/27/21 16:03 Ordered 100 mg PO Q6H PRN Lactated Ringers [Ringers, Lactated] 1,000 ml Med 02/27/21 10:15 Active IV ASDIRECTED Lactated Ringers [Ringers, Lactated] 1,000 ml Med 02/27/21 10:15 Active IV ASDIRECTED Melatonin Med 02/27/21 16:03 Ordered 6 mg PO BEDTIME PRN Remdesivir 100 mg Med 02/28/21 16:00 Ordered Sodium Chloride 0.9% [Normal Saline] 100 ml IV Q24H [id number] [Rocephin] 1 gm Med 02/28/21 16:00 Ordered Sodium Chloride 0.9% [Normal Saline] 50 ml IV Q24H dexAMETHasone Med 02/28/21 09:00 Ordered 6 mg PO DAILY Blood Culture x2 Reflex Set [OM.PC] Stat Ot 02/27/21 10:02 Ordered Isolation [COMM] Routine Oth 02/27/21 08:40 Active Medication Orders Albuterol/Ipratropium (Albuterol/Ipratropium 4 Gm Inhalation [place]) 1 gm INH QID PRN PRN Reason: wheezing Azithromycin (Azithromycin 500 Mg Vial) 500 mg IV Q24H TINO Benzonatate (Benzonatate 100 Mg Cap) 100 mg PO Q6H PRN PRN Reason: Cough Dexamethasone (Dexamethasone 4 Mg Tab) 6 mg PO DAILY TINO Azithromycin 500 mg/ Sodium (Chloride) 250 mls @ 250 mls/hr IV ONETIME [facility] Last Admin: 02/27/21 11:26 Dose: 250 mls/hr Documented by: KENN Lactated Ringer's (Ringers, Lactated) 1,000 mls @ 999 mls/hr IV ASDIRECTED [facility] Last Admin: 02/27/21 10:34 Dose: 999 mls/hr Documented by: [email or web address] Lactated Ringer's (Ringers, Lactated) 1,000 mls @ 150 mls/hr IV ASDIRECTED [facility] Last Admin: 02/27/21 13:25 Dose: 150 mls/hr Documented by: KENN Ceftriaxone Sodium 1 gm/ (Sodium Chloride) 50 mls @ 100 mls/hr IV Q24H TINO Remdesivir 100 mg/ Sodium (Chloride) 100 mls @ 100 mls/hr IV Q24H [facility] Stop: 03/03/21 16:59 Melatonin (Melatonin 3 Mg Tab) 6 mg PO BEDTIME PRN PRN Reason: Insomnia Assessment/Plan Comment:: 56 yo male admitted with COVID pneumonia with hypoxia COVID: treating with dexamethasone, and remdesivir Pneumonia: on Rocephin and azithromycin for possible bacterial pnemonia Lovenox for dvt prophylaxis
[2021-02-27] MEDS: Albuterol/Ipratropium 4 GM Inhalation Spray INH PRN (16:22)
[2021-02-27] MEDS ORDERED: Acetaminophen 325 MG Tab PO PRN (16:25)
--- NOTE | 2021-02-27 17:21 | EDM.PDOC ---
ED HPI GENERAL MEDICAL PROBLEM - General Chief Complaint: Respiratory Problem Stated Complaint: SOB/HARD TIME BREATHING/ COVID SYMPTOMS Time Seen by Provider: 02/27/21 09:02 - History of Present Illness INITIAL COMMENTS - FREE TEXT/NARRATIVE: CHIEF COMPLAINT(S): Shortness of breath HISTORY OF PRESENT ILLNESS: This is a 56-year-old man with a past medical history of hypertension, hyperlipidemia who comes to the emergency department with a chief complaint of shortness of breath. The patient states that for the last 11 days he has been experiencing shortness of breath. He states that he initially did not have a cough however he developed a cough which was nonproductive and seems to not be improving. He states that it initially started with a sinus cold and then it went to his chest. He states that he woke up approximately 1 week ago and he felt like he just could not breathe. He states that he does have some mild chest pain on the anterior part of his chest rated 2 out of 10 without any radiation. He states that it is worse with movement. He denies any relieving factors. He denies any diaphoresis, nausea or vomiting. He denies any history of COPD asthma, CAD or CHF. He states that he is not vaccinated. He states that he went to the walk-in clinic last Wednesday and was given an inhaler but other than that he denies any other symptoms. REVIEW OF SYSTEMS: Constitutional: Denies fever, chills. Eyes: Denies eye pain Ears, Nose, Mouth, & Throat: Positive for sinus congestion. Denies earache Cardiovascular: Positive for chest pain Respiratory: Positive for shortness of breath and productive cough gastrointestinal: Denies Nausea, vomiting, diarrhea, hematochezia. Genitourinary: Denies hematuria Skin:Denies a rash MSK: Denies joint pain Neurological: Denies blurred vision Psychiatric: Denies depression PAST MEDICAL HISTORY: As per history of present illness and as reviewed below otherwise noncontributory. SURGICAL HISTORY: As per history of present illness and as reviewed below otherwise noncontributory. SOCIAL HISTORY: As per history of present illness and as reviewed below otherwise noncontributory. FAMILY HISTORY: As per history of present illness and as reviewed below otherwis e noncontributory. EXAMINATION OF ORGAN SYSTEMS/BODY AREAS: Constitutional: Blood pressure was 118/65, heart rate 99, respiratory rate 20 with an oxygen saturation of 89% on room air. Temperature 36.9. Pulse oximetry with 2 L nasal cannula was 91 to 92% on room air General: Middle-aged man who does not appear to be acute distress Psychiatric: Appropriate mood and affect. Eyes: No scleral icterus or conjunctival erythema ENMT: Moist mucous membranes. No pharyngeal erythema Cardiovascular: Regular, rate, and rhythm. No gallops, murmurs, or rubs. Bilateral upper extremity pulses symmetric and intact. No peripheral edema. No JVD. Respiratory: Lungs clear to auscultation bilaterally. Crackles at the right lung base with some expiratory wheezing. Gastrointestinal: Soft, non-tender, non-distended. Normoactive bowel sounds Genitourinary: No suprapubic tenderness Musculoskeletal: Normal range of motion. Skin: No lesions or abrasions. Neurological: Alert, GCS 15 MEDICAL DECISION MAKING AND COURSE IN THE ED WITH INTERPRETATION/REVIEW OF DIAGNOSTIC STUDIES: This is a 56-year-old and with a past medical history of hypertension, hyperlipidemia who comes to the emergency department with 11 days of shortness of breath, productive cough who is hypoxic on room air with right lower lobe crackles and wheezing. At this time differential includes pneumonia, pneumothorax, ACS, COVID-19. Given the wheezing we will provide the patient with 1 DuoNeb treatment and reevaluate. Patient is not tachycardic so no fluids will be administered at this time. The patient is also normotensive. We will obtain CBC, BMP, troponin, Covid. Will obtain a chest x-ray. EKG was obtained which do not reveal any acute signs of ischemia. Cardiac monitoring at this time did reveal sinus rhythm and pulse oximetry with good waveform on 2 L nasal cannula was 93%. Laboratory: CBC is unremarkable. INR is 1.37. BMP reveals hyponatremia at 135, hypochloremia at 94, hyperglycemia at 120 otherwise unremarkable. Troponin is negative. Covid is positive. The radiological images were viewed by myself along with reading the report from the radiologist. Chest x-ray reveals a right lower lobe pneumonia. Given the hypoxia and heart rate greater than 90 we will obtain lactic acid, total bilirubin and INR. I do believe this is a overlying bacterial pneumonia given that the patient has been having symptoms for 11 days and is Covid positive. We will provide the patient with 1 L of lactated Ringer's bolus and follow-up after lactic acid returns as the patient is normal tensive. We will obtain blood cultures and administer ceftriaxone and azithromycin after the blood cultures. Laboratory: INR is normal. Lactic acid is 1.6. Total bilirubin is elevated at 2.9 but this is the same as prior. Given the lactic acid is in normal limits we will start the patient on maintenance fluids at lactated Ringer's. At this time we do not have any available beds in our hospital system. I did contact [facility] in [place] and spoke with their 1 call system. They do not have any bed availability. Therefore I did call the [place] transfer center and there is no available beds in the entire [facility]. We will continue calling for a bed. I did discuss the results with the patient at bedside. He was amenable to admission at this time. There were no available beds and one of our medical surgical beds did open up therefore the patient was admitted to our hospital. I contacted Dr. Lowe and he accepted the patient for admission. He recommended dexamethasone and remdesivir which is what we started. DISPOSITION: The patient was admitted to the hospital in stable condition CONDITION: Serious PROCEDURES: monitoring engineer intubation, pulse oximetry interpretation FINAL IMPRESSION(S)/DIAGNOSES: 1. Acute hypoxic respiratory failure requiring nasal cannula secondary to COVID-19 and community-acquired pneumonia 2. Acute COVID-19 3. Acute community-acquired pneumonia Critical Care Procedure Note Authorized and performed by: Myron Sandra M.D. Critical Care Time: 80 minutes Due to a high probability of clinically significant, life threatening deterioration, the patient required my highest level of preparedness to intervene emergently and I personally spent this critical care time directly and personally managing the patient. This critical care time included obtaining a history, examining the patient, pulse oximetry; ordering and review of studies; arranging urgent treatment with development of a management plan; evaluation of a patients reponse to treatment; frequent assessment; and discussions with other providers. This critical care time was performed to assess and manage the high probability of imminent, life threatening deterioration that could result in multiorgan failure. It was exclusive of separate billable procedures and treating other patients. Please see MDM section and rest of the note for further information on patient assessment and treatment. Please see MDM section and rest of the note for further information on patient assessment and treatment. Myron Sandra M.D. ribcage Pain Score (Numeric/FACES): 2 - Related Data Allergies Allergy/AdvReac Type Severity Reaction Status Date / Time No Known Allergies Allergy Verified 02/27/21 08:41 Home Meds: Home Meds Allopurinol [Zyloprim] 100 mg PO DAILY 11/09/16 [History] Hydrochlorothiazide 25 mg PO DAILY 11/09/16 [History] Simvastatin [Zocor] 20 mg PO DAILY 11/09/16 [History] amLODIPine Besylate [Amlodipine Besylate] 10 mg PO DAILY 11/09/16 [History] Cholecalciferol (Vitamin D3) [Vitamin D3] 5,000 unit PO DAILY 06/13/20 [History] Multivitamin [Daily Nedra] 1 tab PO DAILY 06/13/20 [History] Aspirin [Aspirin EC] 325 mg PO BID #84 tab 06/17/20 [Rx] Cyclobenzaprine [Flexeril] 10 mg PO BID PRN #20 tab 06/17/20 [Rx] oxyCODONE 5 - 10 mg PO Q4H PRN #40 tab 06/17/20 [Rx] Azithromycin [Zithromax] 250 mg PO DAILY 4 Days #4 tablet 06/20/20 [Rx] Past Medical History HEENT History: Reports: Impaired Vision, Other (See Below) Other HEENT History: wears glasses, has dentures Cardiovascular History: Reports: High Cholesterol, Hypertension Respiratory History: Reports: SOB Gastrointestinal History: Reports: Colon Polyp, Other (See Below) Other Gastrointestinal History: heartburn after surgery, tubulovillous adenoma of large intestine Genitourinary History: Reports: None 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 ASSEMBLER History: Reports: None Musculoskeletal History: Reports: Arthritis, Fracture, Gout, Osteoarthritis Other Musculoskeletal History: 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 knee, Neurological History: Reports: Vertigo Psychiatric History: Reports: None Other Psychiatric History: fatigue Endocrine/Metabolic History: Reports: Obesity/BMI 30+ Hematologic History: Reports: Other (See Below) Other Hematologic History: hypokalemia Immunologic History: Reports: None Oncologic (Cancer) History: Reports: None Dermatologic History: Reports: Other (See Below) Other Dermatologic History: contact dermatitis - Infectious Disease History Infectious Disease History: Reports: Chicken Pox - Past Surgical History Head Surgeries/Procedures: Reports: None HEENT Surgical History: Reports: None Cardiovascular Surgical History: Reports: None Respiratory Surgical History: Reports: None GI Surgical History: Reports: None Male Surgical History: Reports: None Endocrine Surgical History: Reports: None Neurological Surgical History: Reports: None Musculoskeletal Surgical History: Reports: ORIF, Other (See Below) Other Musculoskeletal Surgeries/Procedures:: surgical tx for fx left ankle, left thumb surgery with tendon repair, right total knee replacement Oncologic Surgical History: Reports: None Dermatological Surgical History: Reports: None Social & Family History - Family History Family Medical History: No Pertinent Family History - Tobacco Use Tobacco Use Status *Q: Former Tobacco User Used Tobacco, but Quit: Yes Month/Year Tobacco Last Used: 2016 - Caffeine Use Caffeine Use: Reports: Coffee - Recreational Drug Use Recreational Drug Use: No ED ROS GENERAL - Review of Systems Review Of Systems: See Below ED EXAM, GENERAL - Physical Exam Exam: See Below GI/Abdominal: Normal Bowel Sounds, Soft, Non-Tender Extremities: Non-Tender, No Pedal Edema Course - Vital Signs Last Recorded V/S: Last Vital Signs Temp 36.9 C 02/27/21 08:41 Pulse 85 02/27/21 16:16 Resp 20 02/27/21 16:16 BP 131/59 L 02/27/21 16:16 Pulse Ox 88 L 02/27/21 16:16 - Orders/Labs/Meds Orders: Active Orders 24 hr Category Date Time Status Admission Status [Patient Status] [ADT] Stat ADT 02/27/21 13:54 Active Antiembolic Devices [RC] PER UNIT ROUTINE Care 02/27/21 16:26 Active Cardiac Monitoring [RC] . DIRECTED Care 02/27/21 09:10 Active Oxygen Therapy [RC] PRN Care 02/27/21 16:25 Active Pulse Oximetry [RC] ASDIRECTED Care 02/27/21 09:10 Active RT Aerosol Therapy [RC] ASDIRECTED Care 02/27/21 09:09 Active RT Post Treatment Assessment [RC] Click to Edit Care 02/27/21 16:03 Active RT Pre-Treatment Assessment [RC] Click to Edit Care 02/27/21 16:03 Active Up ad Bridgette [RC] ASDIRECTED Care 02/27/21 16:25 Active VTE/DVT Education [RC] PER UNIT ROUTINE Care 02/27/21 16:25 Active Vital Signs [RC] Q4H Care 02/27/21 16:25 Active Regular Diet [DIET] Diet 02/27/21 Breakfast Active CBC WITH AUTO DIFF [HEME] AM Lab 02/28/21 05:11 Ordered CBC WITH AUTO DIFF [HEME] AM Lab 03/01/21 05:11 Ordered CBC WITH AUTO DIFF [HEME] AM Lab 03/02/21 05:11 Ordered CBC WITH AUTO DIFF [HEME] AM Lab 03/03/21 05:11 Ordered CBC WITH AUTO DIFF [HEME] AM Lab 03/04/21 05:11 Ordered COMPREHENSIVE METABOLIC PN,CMP [CHEM] AM Lab 02/28/21 05:11 Ordered COMPREHENSIVE METABOLIC PN,CMP [CHEM] AM Lab 03/01/21 05:11 Ordered COMPREHENSIVE METABOLIC PN,CMP [CHEM] AM Lab 03/02/21 05:11 Ordered COMPREHENSIVE METABOLIC PN,CMP [CHEM] AM Lab 03/03/21 05:11 Ordered COMPREHENSIVE METABOLIC PN,CMP [CHEM] AM Lab 03/04/21 05:11 Ordered CULTURE BLOOD [BC] Stat Lab 02/27/21 10:23 Received CULTURE BLOOD [BC] Stat Lab 02/27/21 10:33 Received PROCALCITONIN [REF] Routine Lab 02/28/21 05:00 Ordered Acetaminophen [TylenoL] Med 02/27/21 16:25 Active 650 mg PO Q4H PRN Albuterol/Ipratropium [Combivent Respimat] Med 02/27/21 16:03 Active 1 gm INH QID PRN Azithromycin [Zithromax] Med 02/28/21 16:00 Active 500 mg IV Q24H Azithromycin [Zithromax] 500 mg Med 02/27/21 10:15 Active Sodium Chloride 0.9% [Normal Saline (AdvBag)] 250 ml IV ONETIME Benzonatate [Tessalon Perles] Med 02/27/21 16:03 Active 100 mg PO Q6H PRN Enoxaparin [Lovenox] Med 02/27/21 16:30 Active 40 mg SUBCUT Q24H Lactated Ringers [Ringers, Lactated] 1,000 ml Med 02/27/21 10:15 Active IV ASDIRECTED Melatonin Med 02/27/21 16:03 Active 6 mg PO BEDTIME PRN Remdesivir 100 mg Med 02/28/21 16:00 Active Sodium Chloride 0.9% [Normal Saline] 100 ml IV Q24H cefTRIAXone [Rocephin] 1 gm Med 02/28/21 16:00 Active Sodium Chloride 0.9% [Normal Saline] 50 ml IV Q24H dexAMETHasone Med 02/28/21 09:00 Active 6 mg PO DAILY Blood Culture x2 Reflex Set [OM.PC] Stat Ot 02/27/21 10:02 Ordered Isolation [COMM] Routine Ot 02/27/21 08:40 Active Sequential Compression Device [OM.PC] Per Unit Routine Oth 02/27/21 16:26 Ordered Resuscitation Status Routine Resus Stat 02/27/21 16:25 Ordered Medication Orders Acetaminophen (Acetaminophen 325 Mg Tab) 650 mg PO Q4H PRN PRN Reason: Pain (Mild 1-3)/fever Albuterol/Ipratropium (Albuterol/Ipratropium 4 Gm Inhalation [place]) 1 gm INH QID PRN PRN Reason: wheezing Last Admin: 02/27/21 16:22 Dose: 1 dose Documented by: KENN Azithromycin (Azithromycin 500 Mg Vial) 500 mg IV Q24H [facility] Benzonatate (Benzonatate 100 Mg Cap) 100 mg PO Q6H PRN PRN Reason: Cough Dexamethasone (Dexamethasone 4 Mg Tab) 6 mg PO DAILY [facility] Enoxaparin Sodium (Enoxaparin 40 Mg/0.4 Ml Syringe) 40 mg SUBCUT Q24H [facility] Azithromycin 500 mg/ Sodium (Chloride) 250 mls @ 250 mls/hr IV ONETIME [facility] Last Admin: 02/27/21 11:26 Dose: 250 mls/hr Documented by: KENN Lactated Ringer's (Ringers, Lactated) 1,000 mls @ 999 mls/hr IV ASDIRECTED [facility] Last Admin: 02/27/21 10:34 Dose: 999 mls/hr Documented by: KENN Ceftriaxone Sodium 1 gm/ (Sodium Chloride) 50 mls @ 100 mls/hr IV Q24H [facility] Remdesivir 100 mg/ Sodium (Chloride) 100 mls @ 100 mls/hr IV Q24H [facility] Stop: 03/03/21 16:59 Melatonin (Melatonin 3 Mg Tab) 6 mg PO BEDTIME PRN PRN Reason: Insomnia Labs: Laboratory Tests 02/27/21 02/27/21 02/27/21 Range/Units 08:50 10:02 10:02 WBC 9.50 (4.0-11.0) K/uL RBC 4.57 (4.50-5.90) M/uL Hgb 14.0 (13.0-17.0) g/dL Hct 40.0 (38.0-50.0) % MCV 87.5 (80.0-98.0) fL MCH 30.6 (27.0-32.0) pg MCHC 35.0 (31.0-37.0) g/dL RDW Std Deviation 41.8 (28.0-62.0) fl RDW Coeff of Jose 13 (11.0-15.0) % Plt Count 250 (150-400) K/uL MPV 10.00 (7.40-12.00) fL Neut % (Auto) 72.5 (48.0-80.0) % Lymph % (Auto) 21.8 (16.0-40.0) % [place] % (Auto) 5.5 (0.0-15.0) % Eos % (Auto) 0.1 (0.0-7.0) % Baso % (Auto) 0.1 (0.0-1.5) % Neut # (Auto) 6.9 H (1.4-5.7) K/uL Lymph # (Auto) 2.1 (0.6-2.4) K/uL [place] # (Auto) 0.5 (0.0-0.8) K/uL Eos # (Auto) 0.0 (0.0-0.7) K/uL Baso # (Auto) 0.0 (0.0-0.1) K/uL Nucleated RBC % 0.0 /100WBC Nucleated RBCs # 0 K/uL INR Sodium 135 L (136-148) mmol/L Potassium 3.5 (3.5-5.1) mmol/L Chloride 94 L (98-107) mmol/L Carbon Dioxide 27.6 (21.0-32.0) mmol/L BUN 18 (7.0-18.0) mg/dL Creatinine 1.3 (0.8-1.3) mg/dL Est Cr Clr Drug Dosing 67.98 mL/min Estimated GFR (MDRD) 56.7 ml/min Glucose 120 H (74-106) mg/dL Lactic Acid (0.4-2.0) mmol/L Calcium 8.0 L (8.5-10.1) mg/dL Magnesium 2.5 H (1.8-2.4) mg/dL Total Bilirubin 2.9 H (0.2-1.0) mg/dL Direct Bilirubin (0.0-0.5) mg/dL AST (15-37) IU/L ALT (14-63) IU/L Alkaline Phosphatase (46-116) U/L Troponin I < 0.050 (0.000-0.056) ng/mL C-Reactive Protein (0.00-0.90) mg/dL Total Protein (6.4-8.2) g/dL Albumin (3.4-5.0) g/dL Globulin (2.6-4.0) g/dL Albumin/Globulin Ratio (0.9-1.6) SARS-CoV-2 RNA (IAM) POSITIVE H (NEGATIVE) 02/27/21 02/27/21 02/27/21 Range/Units 10:02 10:23 14:10 WBC (4.0-11.0) K/uL RBC (4.50-5.90) M/uL Hgb (13.0-17.0) g/dL Hct (38.0-50.0) % MCV (80.0-98.0) fL MCH (27.0-32.0) pg MCHC (31.0-37.0) g/dL RDW Std Deviation (28.0-62.0) fl RDW Coeff of Jose (11.0-15.0) % Plt Count (150-400) K/uL MPV (7.40-12.00) fL Neut % (Auto) (48.0-80.0) % Lymph % (Auto) (16.0-40.0) % [place] % (Auto) (0.0-15.0) % Eos % (Auto) (0.0-7.0) % Baso % (Auto) (0.0-1.5) % Neut # (Auto) (1.4-5.7) K/uL Lymph # (Auto) (0.6-2.4) K/uL [place] # (Auto) (0.0-0.8) K/uL Eos # (Auto) (0.0-0.7) K/uL Baso # (Auto) (0.0-0.1) K/uL Nucleated RBC % /100WBC Nucleated RBCs # K/uL INR 1.37 Sodium 132 L (136-148) mmol/L Potassium 3.5 (3.5-5.1) mmol/L Chloride 93 L (98-107) mmol/L Carbon Dioxide 29.8 (21.0-32.0) mmol/L BUN 16 (7.0-18.0) mg/dL Creatinine 1.1 (0.8-1.3) mg/dL Est Cr Clr Drug Dosing TNP mL/min Estimated GFR (MDRD) > 60.0 ml/min Glucose 109 H (74-106) mg/dL Lactic Acid 1.6 (0.4-2.0) mmol/L Calcium 7.9 L (8.5-10.1) mg/dL Magnesium (1.8-2.4) mg/dL Total Bilirubin 2.2 H (0.2-1.0) mg/dL Direct Bilirubin 0.60 H (0.0-0.5) mg/dL AST 65 H (15-37) IU/L ALT 108 H (14-63) IU/L Alkaline Phosphatase 74 (46-116) U/L Troponin I (0.000-0.056) ng/mL C-Reactive Protein (0.00-0.90) mg/dL Total Protein 5.9 L (6.4-8.2) g/dL Albumin 2.2 L (3.4-5.0) g/dL Globulin 3.7 (2.6-4.0) g/dL Albumin/Globulin Ratio 0.6 L (0.9-1.6) SARS-CoV-2 RNA (IAM) (NEGATIVE) 02/27/21 Range/Units 14:10 WBC (4.0-11.0) K/uL RBC (4.50-5.90) M/uL Hgb (13.0-17.0) g/dL Hct (38.0-50.0) % MCV (80.0-98.0) fL MCH (27.0-32.0) pg MCHC (31.0-37.0) g/dL RDW Std Deviation (28.0-62.0) fl RDW Coeff of Jose (11.0-15.0) % Plt Count (150-400) K/uL MPV (7.40-12.00) fL Neut % (Auto) (48.0-80.0) % Lymph % (Auto) (16.0-40.0) % [place] % (Auto) (0.0-15.0) % Eos % (Auto) (0.0-7.0) % Baso % (Auto) (0.0-1.5) % Neut # (Auto) (1.4-5.7) K/uL Lymph # (Auto) (0.6-2.4) K/uL [place] # (Auto) (0.0-0.8) K/uL Eos # (Auto) (0.0-0.7) K/uL Baso # (Auto) (0.0-0.1) K/uL Nucleated RBC % /100WBC Nucleated RBCs # K/uL INR Sodium (136-148) mmol/L Potassium (3.5-5.1) mmol/L Chloride (98-107) mmol/L Carbon Dioxide (21.0-32.0) mmol/L BUN (7.0-18.0) mg/dL Creatinine (0.8-1.3) mg/dL Est Cr Clr Drug Dosing mL/min Estimated GFR (MDRD) ml/min Glucose (74-106) mg/dL Lactic Acid (0.4-2.0) mmol/L Calcium (8.5-10.1) mg/dL Magnesium (1.8-2.4) mg/dL Total Bilirubin (0.2-1.0) mg/dL Direct Bilirubin (0.0-0.5) mg/dL AST (15-37) IU/L ALT (14-63) IU/L Alkaline Phosphatase (46-116) U/L Troponin I (0.000-0.056) ng/mL C-Reactive Protein 14.50 H (0.00-0.90) mg/dL Total Protein (6.4-8.2) g/dL Albumin (3.4-5.0) g/dL Globulin (2.6-4.0) g/dL Albumin/Globulin Ratio (0.9-1.6) SARS-CoV-2 RNA (IAM) (NEGATIVE) Meds: Medications Generic Name Dose Route Start Last Admin Trade Name Freq PRN Reason Stop Dose Admin Acetaminophen 650 mg 02/27/21 16:25 Acetaminophen 325 Mg Tab PO Q4H PRN Pain (Mild 1-3)/fever Albuterol/Ipratropium 1 gm 02/27/21 16:03 02/27/21 16:22 Albuterol/Ipratropium 4 Gm Inhalation [place] INH 1 dose QID PRN Administration wheezing Azithromycin 500 mg 02/28/21 16:00 Azithromycin 500 Mg Vial IV Q24H TINO Benzonatate 100 mg 02/27/21 16:03 Benzonatate 100 Mg Cap PO Q6H PRN Cough Dexamethasone 6 mg 02/28/21 09:00 Dexamethasone 4 Mg Tab PO DAILY TINO Enoxaparin Sodium 40 mg 02/27/21 16:30 Enoxaparin 40 Mg/0.4 Ml Syringe SUBCUT Q24H TINO Azithromycin 500 mg/ Sodium 250 mls @ 250 mls/hr 02/27/21 10:15 02/27/21 11:26 Chloride IV 250 mls/hr ONETIME TINO Administration Lactated Ringer's 1,000 mls @ 999 mls/hr 02/27/21 10:15 02/27/21 10:34 Ringers, Lactated IV 999 mls/hr ASDIRECTED TINO Administration Ceftriaxone Sodium 1 gm/ 50 mls @ 100 mls/hr 02/28/21 16:00 Sodium Chloride IV Q24H TINO Remdesivir 100 mg/ Sodium 100 mls @ 100 mls/hr 02/28/21 16:00 Chloride IV 03/03/21 16:59 Q24H TINO Melatonin 6 mg 02/27/21 16:03 Melatonin 3 Mg Tab PO BEDTIME PRN Insomnia Discontinued Medications Generic Name Dose Route Start Last Admin Trade Name Freq PRN Reason Stop Dose Admin Albuterol/Ipratropium 3 ml 02/27/21 09:09 02/27/21 09:35 Albuterol/Ipratropium 3.0-0.5 Mg/3 Ml Neb Soln NEB 02/27/21 09:10 3 ml ONETIME ONE Administration Dexamethasone 6 mg 02/27/21 13:51 02/27/21 14:02 Dexamethasone 4 Mg Tab PO 02/27/21 13:52 6 mg ONETIME ONE Administration Ceftriaxone Sodium/Dextrose 2 50 mls @ 100 mls/hr 02/27/21 10:07 02/27/21 10:40 gm/ Premix IV 02/27/21 10:36 100 mls/hr ONETIME ONE Administration Lactated Ringer's 1,000 mls @ 150 mls/hr 02/27/21 10:15 02/27/21 13:25 Ringers, Lactated IV 150 mls/hr ASDIRECTED TINO Administration Remdesivir 200 mg/ Sodium 250 mls @ 250 mls/hr 02/27/21 13:51 02/27/21 14:24 Chloride IV 02/27/21 13:52 250 mls/hr ONETIME ONE Administration Remdesivir 200 mg/ Sodium 250 mls @ 250 mls/hr 02/27/21 14:00 02/27/21 14:29 Chloride IV 02/27/21 14:59 Not Given ONETIME ONE Departure - Departure Time of Disposition: 17:21 Disposition: Admitted As Inpatient 64 Condition: Serious Clinical Impression: COVID-19, Community acquired bacterial pneumonia - Discharge Information *PRESCRIPTION DRUG MONITORING PROGRAM REVIEWED*: No *COPY OF PRESCRIPTION DRUG MONITORING REPORT IN PATIENT FLOR: No Referrals: Garret Bah MD [Primary Care Provider] - Sepsis Event Note (ED) - Evaluation Sepsis Screening Result: No Definite Risk - Focused Exam Vital Signs: Vital Signs Temp Pulse Resp BP Pulse Ox 02/27/21 16:16 85 20 131/59 L 88 L 02/27/21 12:43 88 120/69 94 L 02/27/21 12:14 90 110/59 L 92 L 02/27/21 11:44 92 115/60 92 L 02/27/21 11:14 92 128/63 91 L 02/27/21 10:43 93 123/66 93 L 02/27/21 10:25 96 114/65 93 L 02/27/21 09:50 106 H 90 L 02/27/21 08:53 91 L 02/27/21 08:41 36.9 C 99 20 118/65 89 L - My Orders Last 24 Hours: My Active Orders 02/27/21 08:40 Isolation [COMM] Routine 02/27/21 09:09 RT Aerosol Therapy [RC] ASDIRECTED 02/27/21 09:10 Cardiac Monitoring [RC] . DIRECTED Pulse Oximetry [RC] ASDIRECTED 02/27/21 10:02 Blood Culture x2 Reflex Set [OM.PC] Stat 02/27/21 10:15 Azithromycin [Zithromax] 500 mg Sodium Chloride 0.9% [Normal Saline (AdvBag)] 250 ml IV ONETIME Lactated Ringers [Ringers, Lactated] 1,000 ml IV ASDIRECTED 02/27/21 10:23 CULTURE BLOOD [BC] Stat 02/27/21 10:33 CULTURE BLOOD [BC] Stat 02/27/21 13:54 Admission Status [Patient Status] [ADT] Stat - Assessment/Plan Last 24 Hours: My Active Orders 02/27/21 08:40 Isolation [COMM] Routine 02/27/21 09:09 RT Aerosol Therapy [RC] ASDIRECTED 02/27/21 09:10 Cardiac Monitoring [RC] . DIRECTED Pulse Oximetry [RC] ASDIRECTED 02/27/21 10:02 Blood Culture x2 Reflex Set [OM.PC] Stat 02/27/21 10:15 Azithromycin [Zithromax] 500 mg Sodium Chloride 0.9% [Normal Saline (AdvBag)] 250 ml IV ONETIME Lactated Ringers [Ringers, Lactated] 1,000 ml IV ASDIRECTED 02/27/21 10:23 CULTURE BLOOD [BC] Stat 02/27/21 10:33 CULTURE BLOOD [BC] Stat 02/27/21 13:54 Admission Status [Patient Status] [ADT] Stat
[2021-02-27] MEDS: Enoxaparin 40 MG/0.4 ML Syringe SUBCUT SCH (17:25)
[2021-02-28 08:13] LABS: BLOOD UREA NITROGEN,BUN 16 mg/dL (7.0-18.0); CARBON DIOXIDE,CO2 28.2 mmol/L (21.0-32.0); CHLORIDE,CL 100 mmol/L (98-107); GLUCOSE RANDOM 131 mg/dL (74-106); SODIUM,NA 140 mmol/L (136-148)
[2021-02-28] MEDS: Dexamethasone 4 MG Tab PO SCH (09:06)
--- NOTE | 2021-02-28 14:54 | PCM.PN ---
- General Info Date of Service: 02/28/21 - Review of Systems Systems Review Comment:: reports small improvement in his breathing - Patient Data Vitals - Most Recent: Last Vital Signs Temp 35.9 C L 02/28/21 12:00 Pulse 70 02/28/21 12:00 Resp 22 H 02/28/21 12:00 BP 136/66 02/28/21 12:00 Pulse Ox 93 L 02/28/21 12:00 Weight - Most Recent: 110.722 kg I&O - Last 24 Hours: Intake & Output 02/27/21 02/28/21 02/28/21 22:59 06:59 14:59 Intake Total 1000 540 Balance 1000 540 Lab Results Last 24 Hours: Laboratory Results - last 24 hr 02/27/21 02/27/21 02/28/21 Range/Units 14:10 14:10 05:45 WBC 5.10 (4.0-11.0) K/uL RBC 4.21 L (4.50-5.90) M/uL Hgb 12.8 L (13.0-17.0) g/dL Hct 37.0 L (38.0-50.0) % MCV 87.9 (80.0-98.0) fL MCH 30.4 (27.0-32.0) pg MCHC 34.6 (31.0-37.0) g/dL RDW Std Deviation 42.2 (28.0-62.0) fl RDW Coeff of Jose 13 (11.0-15.0) % Plt Count 242 (150-400) K/uL MPV 10.80 (7.40-12.00) fL Neut % (Auto) 80.6 H (48.0-80.0) % Lymph % (Auto) 13.7 L (16.0-40.0) % [place] % (Auto) 5.7 (0.0-15.0) % Eos % (Auto) 0.0 (0.0-7.0) % Baso % (Auto) 0.0 (0.0-1.5) % Neut # (Auto) 4.1 (1.4-5.7) K/uL Lymph # (Auto) 0.7 (0.6-2.4) K/uL [place] # (Auto) 0.3 (0.0-0.8) K/uL Eos # (Auto) 0.0 (0.0-0.7) K/uL Baso # (Auto) 0.0 (0.0-0.1) K/uL Nucleated RBC % 0.0 /100WBC Nucleated RBCs # 0 K/uL Sodium 132 L (136-148) mmol/L Potassium 3.5 (3.5-5.1) mmol/L Chloride 93 L (98-107) mmol/L Carbon Dioxide 29.8 (21.0-32.0) mmol/L BUN 16 (7.0-18.0) mg/dL Creatinine 1.1 (0.8-1.3) mg/dL Est Cr Clr Drug Dosing TNP Estimated GFR (MDRD) > 60.0 ml/min Glucose 109 H (74-106) mg/dL Calcium 7.9 L (8.5-10.1) mg/dL Total Bilirubin 2.2 H (0.2-1.0) mg/dL Direct Bilirubin 0.60 H (0.0-0.5) mg/dL AST 65 H (15-37) IU/L ALT 108 H (14-63) IU/L Alkaline Phosphatase 74 (46-116) U/L C-Reactive Protein 14.50 H (0.00-0.90) mg/dL Total Protein 5.9 L (6.4-8.2) g/dL Albumin 2.2 L (3.4-5.0) g/dL Globulin 3.7 (2.6-4.0) g/dL Albumin/Globulin Ratio 0.6 L (0.9-1.6) 02/28/21 Range/Units 05:45 WBC (4.0-11.0) K/uL RBC (4.50-5.90) M/uL Hgb (13.0-17.0) g/dL Hct (38.0-50.0) % MCV (80.0-98.0) fL MCH (27.0-32.0) pg MCHC (31.0-37.0) g/dL RDW Std Deviation (28.0-62.0) fl RDW Coeff of Jose (11.0-15.0) % Plt Count (150-400) K/uL MPV (7.40-12.00) fL Neut % (Auto) (48.0-80.0) % Lymph % (Auto) (16.0-40.0) % [place] % (Auto) (0.0-15.0) % Eos % (Auto) (0.0-7.0) % Baso % (Auto) (0.0-1.5) % Neut # (Auto) (1.4-5.7) K/uL Lymph # (Auto) (0.6-2.4) K/uL [place] # (Auto) (0.0-0.8) K/uL Eos # (Auto) (0.0-0.7) K/uL Baso # (Auto) (0.0-0.1) K/uL Nucleated RBC % /100WBC Nucleated RBCs # K/uL Sodium 140 (136-148) mmol/L Potassium 4.0 (3.5-5.1) mmol/L Chloride 100 (98-107) mmol/L Carbon Dioxide 28.2 (21.0-32.0) mmol/L BUN 16 (7.0-18.0) mg/dL Creatinine 1.0 (0.8-1.3) mg/dL Est Cr Clr Drug Dosing 88.38 Estimated GFR (MDRD) > 60.0 ml/min Glucose 131 H (74-106) mg/dL Calcium 7.6 L (8.5-10.1) mg/dL Total Bilirubin 1.7 H (0.2-1.0) mg/dL Direct Bilirubin (0.0-0.5) mg/dL AST 37 (15-37) IU/L ALT 101 H (14-63) IU/L Alkaline Phosphatase 77 (46-116) U/L C-Reactive Protein (0.00-0.90) mg/dL Total Protein 6.0 L (6.4-8.2) g/dL Albumin 2.2 L (3.4-5.0) g/dL Globulin 3.8 (2.6-4.0) g/dL Albumin/Globulin Ratio 0.6 L (0.9-1.6) Earl Results Last 24 Hours: Microbiology 02/27/21 10:33 Aerobic Blood Culture - Preliminary Blood - Venous - Lab Draw NO GROWTH AFTER 1 DAY Anaerobic Blood Culture - Preliminary NO GROWTH AFTER 1 DAY 02/27/21 10:23 Aerobic Blood Culture - Preliminary Blood - Venous NO GROWTH AFTER 1 DAY Anaerobic Blood Culture - Preliminary NO GROWTH AFTER 1 DAY Med Orders - Current: Current Medications Acetaminophen (Acetaminophen 325 Mg Tab) 650 mg PO Q4H PRN PRN Reason: Pain (Mild 1-3)/fever Albuterol/Ipratropium (Albuterol/Ipratropium 4 Gm Inhalation [place]) 1 gm INH QID PRN PRN Reason: wheezing Last Admin: 02/27/21 16:22 Dose: 1 dose Documented by: Azithromycin (Azithromycin 500 Mg Vial) 500 mg IV Q24H [facility]INO Benzonatate (Benzonatate 100 Mg Cap) 100 mg PO Q6H PRN PRN Reason: Cough Dexamethasone (Dexamethasone 4 Mg Tab) 6 mg PO DAILY [facility] Last Admin: 02/28/21 09:06 Dose: 6 mg Documented by: Enoxaparin Sodium (Enoxaparin 40 Mg/0.4 Ml Syringe) 40 mg SUBCUT Q24H [facility] Last Admin: 02/27/21 17:25 Dose: 40 mg Documented by: Azithromycin 500 mg/ Sodium (Chloride) 250 mls @ 250 mls/hr IV ONETIME [facility] Last Admin: 02/27/21 11:26 Dose: 250 mls/hr Documented by: Lactated Ringer's (Ringers, Lactated) 1,000 mls @ 999 mls/hr IV ASDIRECTED [facility] Last Admin: 02/27/21 10:34 Dose: 999 mls/hr Documented by: Ceftriaxone Sodium 1 gm/ (Sodium Chloride) 50 mls @ 100 mls/hr IV Q24H [facility] Remdesivir 100 mg/ Sodium (Chloride) 100 mls @ 100 mls/hr IV Q24H [facility] Stop: 03/03/21 16:59 Melatonin (Melatonin 3 Mg Tab) 6 mg PO BEDTIME PRN PRN Reason: Insomnia Discontinued Medications Albuterol/Ipratropium (Albuterol/Ipratropium 3.0-0.5 Mg/3 Ml Neb Soln) 3 ml NEB ONETIME ONE Stop: 02/27/21 09:10 Last Admin: 02/27/21 09:35 Dose: 3 ml Documented by: Dexamethasone (Dexamethasone 4 Mg Tab) 6 mg PO ONETIME ONE Stop: 02/27/21 13:52 Last Admin: 02/27/21 14:02 Dose: 6 mg Documented by: Ceftriaxone Sodium/Dextrose 2 (gm/ Premix) 50 mls @ 100 mls/hr IV ONETIME ONE Stop: 02/27/21 10:36 Last Admin: 02/27/21 10:40 Dose: 100 mls/hr Documented by: Lactated Ringer's (Ringers, Lactated) 1,000 mls @ 150 mls/hr IV ASDIRECTED [facility] Last Admin: 02/27/21 13:25 Dose: 150 mls/hr Documented by: Remdesivir 200 mg/ Sodium (Chloride) 250 mls @ 250 mls/hr IV ONETIME ONE Stop: 02/27/21 13:52 Last Admin: 02/27/21 14:24 Dose: 250 mls/hr Documented by: Remdesivir 200 mg/ Sodium (Chloride) 250 mls @ 250 mls/hr IV ONETIME ONE Stop: 02/27/21 14:59 Last Admin: 02/27/21 14:29 Dose: Not Given Documented by: - Exam General: Alert, Oriented Neck: Supple Lungs: Normal Respiratory Effort, Rhonchi Cardiovascular: Regular Rate, Regular Rhythm GI/Abdominal Exam: Soft, Non-Tender Extremities: Non-Tender, No Pedal Edema Neurological: No New Focal Deficit - Patient Data Lab Results Last 24 hrs: Laboratory Results - last 24 hr 02/27/21 02/27/21 02/28/21 Range/Units 14:10 14:10 05:45 WBC 5.10 (4.0-11.0) K/uL RBC 4.21 L (4.50-5.90) M/uL Hgb 12.8 L (13.0-17.0) g/dL Hct 37.0 L (38.0-50.0) % MCV 87.9 (80.0-98.0) fL MCH 30.4 (27.0-32.0) pg MCHC 34.6 (31.0-37.0) g/dL RDW Std Deviation 42.2 (28.0-62.0) fl RDW Coeff of Jose 13 (11.0-15.0) % Plt Count 242 (150-400) K/uL MPV 10.80 (7.40-12.00) fL Neut % (Auto) 80.6 H (48.0-80.0) % Lymph % (Auto) 13.7 L (16.0-40.0) % [place] % (Auto) 5.7 (0.0-15.0) % Eos % (Auto) 0.0 (0.0-7.0) % Baso % (Auto) 0.0 (0.0-1.5) % Neut # (Auto) 4.1 (1.4-5.7) K/uL Lymph # (Auto) 0.7 (0.6-2.4) K/uL [place] # (Auto) 0.3 (0.0-0.8) K/uL Eos # (Auto) 0.0 (0.0-0.7) K/uL Baso # (Auto) 0.0 (0.0-0.1) K/uL Nucleated RBC % 0.0 /100WBC Nucleated RBCs # 0 K/uL Sodium 132 L (136-148) mmol/L Potassium 3.5 (3.5-5.1) mmol/L Chloride 93 L (98-107) mmol/L Carbon Dioxide 29.8 (21.0-32.0) mmol/L BUN 16 (7.0-18.0) mg/dL Creatinine 1.1 (0.8-1.3) mg/dL Est Cr Clr Drug Dosing TNP Estimated GFR (MDRD) > 60.0 ml/min Glucose 109 H (74-106) mg/dL Calcium 7.9 L (8.5-10.1) mg/dL Total Bilirubin 2.2 H (0.2-1.0) mg/dL Direct Bilirubin 0.60 H (0.0-0.5) mg/dL AST 65 H (15-37) IU/L ALT 108 H (14-63) IU/L Alkaline Phosphatase 74 (46-116) U/L C-Reactive Protein 14.50 H (0.00-0.90) mg/dL Total Protein 5.9 L (6.4-8.2) g/dL Albumin 2.2 L (3.4-5.0) g/dL Globulin 3.7 (2.6-4.0) g/dL Albumin/Globulin Ratio 0.6 L (0.9-1.6) 02/28/21 Range/Units 05:45 WBC (4.0-11.0) K/uL RBC (4.50-5.90) M/uL Hgb (13.0-17.0) g/dL Hct (38.0-50.0) % MCV (80.0-98.0) fL MCH (27.0-32.0) pg MCHC (31.0-37.0) g/dL RDW Std Deviation (28.0-62.0) fl RDW Coeff of Jose (11.0-15.0) % Plt Count (150-400) K/uL MPV (7.40-12.00) fL Neut % (Auto) (48.0-80.0) % Lymph % (Auto) (16.0-40.0) % [place] % (Auto) (0.0-15.0) % Eos % (Auto) (0.0-7.0) % Baso % (Auto) (0.0-1.5) % Neut # (Auto) (1.4-5.7) K/uL Lymph # (Auto) (0.6-2.4) K/uL [place] # (Auto) (0.0-0.8) K/uL Eos # (Auto) (0.0-0.7) K/uL Baso # (Auto) (0.0-0.1) K/uL Nucleated RBC % /100WBC Nucleated RBCs # K/uL Sodium 140 (136-148) mmol/L Potassium 4.0 (3.5-5.1) mmol/L Chloride 100 (98-107) mmol/L Carbon Dioxide 28.2 (21.0-32.0) mmol/L BUN 16 (7.0-18.0) mg/dL Creatinine 1.0 (0.8-1.3) mg/dL Est Cr Clr Drug Dosing 88.38 Estimated GFR (MDRD) > 60.0 ml/min Glucose 131 H (74-106) mg/dL Calcium 7.6 L (8.5-10.1) mg/dL Total Bilirubin 1.7 H (0.2-1.0) mg/dL Direct Bilirubin (0.0-0.5) mg/dL AST 37 (15-37) IU/L ALT 101 H (14-63) IU/L Alkaline Phosphatase 77 (46-116) U/L C-Reactive Protein (0.00-0.90) mg/dL Total Protein 6.0 L (6.4-8.2) g/dL Albumin 2.2 L (3.4-5.0) g/dL Globulin 3.8 (2.6-4.0) g/dL Albumin/Globulin Ratio 0.6 L (0.9-1.6) Result Diagrams: 02/28/21 05:45 02/28/21 05:45 Earl Results Last 24 hrs: Microbiology 02/27/21 10:33 Aerobic Blood Culture - Preliminary Blood - Venous - Lab Draw NO GROWTH AFTER 1 DAY Anaerobic Blood Culture - Preliminary NO GROWTH AFTER 1 DAY 02/27/21 10:23 Aerobic Blood Culture - Preliminary Blood - Venous NO GROWTH AFTER 1 DAY Anaerobic Blood Culture - Preliminary NO GROWTH AFTER 1 DAY Sepsis Event Note - Evaluation Sepsis Screening Result: No Definite Risk - Focused Exam Vital Signs: Vital Signs Temp Pulse Resp BP Pulse Ox 02/28/21 12:00 35.9 C L 70 22 H 136/66 93 L 02/28/21 08:30 35.6 C L 68 22 H 106/79 94 L 02/28/21 03:50 36.1 C 70 17 131/74 92 L - Problem List & Annotations (1) COVID-19 SNOMED Code(s): 294403801 Code(s): U07.1 - COVID-19 Status: Acute Current Visit: Yes - Problem List Review Problem List Initiated/Reviewed/Updated: Yes - My Orders Last 24 Hours: My Active Orders 02/27/21 16:03 RT Post Treatment Assessment [RC] Click to Edit RT Pre-Treatment Assessment [RC] Click to Edit Albuterol/Ipratropium [Combivent Respimat] 1 gm INH QID PRN Benzonatate [Tessalon Perles] 100 mg PO Q6H PRN Melatonin 6 mg PO BEDTIME PRN 02/27/21 16:25 Oxygen Therapy [RC] PRN VTE/DVT Education [RC] PER UNIT ROUTINE Acetaminophen [TylenoL] 650 mg PO Q4H PRN Resuscitation Status Routine 02/27/21 16:26 Antiembolic Devices [RC] PER UNIT ROUTINE Sequential Compression Device [OM.PC] Per Unit Routine 02/27/21 16:30 Enoxaparin [Lovenox] 40 mg SUBCUT Q24H 02/28/21 05:45 PROCALCITONIN [REF] Routine 02/28/21 09:00 dexAMETHasone 6 mg PO DAILY 02/28/21 16:00 Azithromycin [Zithromax] 500 mg IV Q24H Remdesivir 100 mg Sodium Chloride 0.9% [Normal Saline] 100 ml IV Q24H cefTRIAXone [Rocephin] 1 gm Sodium Chloride 0.9% [Normal Saline] 50 ml IV Q24H 03/01/21 05:11 CBC WITH AUTO DIFF [HEME] AM COMPREHENSIVE METABOLIC PN,CMP [CHEM] AM 03/02/21 05:11 CBC WITH AUTO DIFF [HEME] AM COMPREHENSIVE METABOLIC PN,CMP [CHEM] AM 03/03/21 05:11 CBC WITH AUTO DIFF [HEME] AM COMPREHENSIVE METABOLIC PN,CMP [CHEM] AM 03/04/21 05:11 CBC WITH AUTO DIFF [HEME] AM COMPREHENSIVE METABOLIC PN,CMP [CHEM] AM - Plan Plan:: 56 yo male admitted with COVID pneumonia with hypoxia Hypoxia: on 5 L NC COVID: treating with dexamethasone, and remdesivir Pneumonia: on Rocephin and azithromycin for possible bacterial pneumonia, procalcitonin pending Lovenox for dvt prophylaxis
[2021-02-28] MEDS: REMDESIVIR 100 MG in Sodium Chloride 0.9% 100 ML IV SCH (15:33)
[2021-02-28] MEDS: Enoxaparin 40 MG/0.4 ML Syringe SUBCUT SCH (15:33)
[2021-02-28] MEDS ORDERED: Azithromycin 500 MG Vial IV SCH (16:00)
[2021-02-28] MEDS ORDERED: cefTRIAXone 1 GM in Sodium Chloride 0.9% 50 ML IV SCH (16:00)
[2021-02-28] MEDS: cefTRIAXone 1 GM in Premix Bag 1 BAG IV SCH (16:42)
[2021-02-28] MEDS: Azithromycin 500 MG in Sodium Chloride 0.9% 250 ML IV SCH (17:13)
[2021-03-01 07:33] LABS: BLOOD UREA NITROGEN,BUN 19 mg/dL (7.0-18.0); CARBON DIOXIDE,CO2 28.4 mmol/L (21.0-32.0); CHLORIDE,CL 103 mmol/L (98-107); GLUCOSE RANDOM 113 mg/dL (74-106); POTASSIUM,K 4.1 mmol/L (3.5-5.1); SODIUM,NA 140 mmol/L (136-148)
[2021-03-01] MEDS: Albuterol/Ipratropium 4 GM Inhalation Spray INH PRN (08:40)
[2021-03-01] MEDS: Dexamethasone 4 MG Tab PO SCH (08:40)
--- NOTE | 2021-03-01 14:50 | PCM.PN ---
- General Info Date of Service: 03/01/21 Admission Dx/Problem (Free Text): Admission Diagnosis/Problem Admission Diagnosis/Problem Hypoxia Subjective Update: Patient seen at bedside, no acute distress, tolerating oxygen well Functional Status: Reports: Tolerating Diet, Ambulating, Urinating - Review of Systems General: Reports: Weakness, Fatigue. Denies: Fever Pulmonary: Reports: Shortness of Breath, Cough, Sputum Cardiovascular: Reports: Dyspnea on Exertion. Denies: Chest Pain, Palpitations, Orthopnea Gastrointestinal: Denies: Abdominal Pain, Constipation, Decreased Appetite Genitourinary: Denies: Dysuria, Frequency, Burning Musculoskeletal: Denies: Neck Pain, Shoulder Pain, Arm Pain Skin: Denies: Cyanosis, Jaundice, Mottled Neurological: Denies: Confusion, Dizziness, Headache - Patient Data Vitals - Most Recent: Last Vital Signs Temp 2.7 C L 03/01/21 12:00 Pulse 62 03/01/21 12:00 Resp 16 03/01/21 12:00 BP 106/61 03/01/21 12:00 Pulse Ox 96 03/01/21 12:00 Weight - Most Recent: 110.722 kg I&O - Last 24 Hours: Intake & Output 02/28/21 03/01/21 03/01/21 22:59 06:59 14:59 Intake Total 1100 600 Output Total 750 550 Balance 350 50 Lab Results Last 24 Hours: Laboratory Results - last 24 hr 02/28/21 03/01/21 03/01/21 Range/Units 05:45 06:50 06:50 WBC 10.70 (4.0-11.0) K/uL RBC 3.88 L (4.50-5.90) M/uL Hgb 11.9 L (13.0-17.0) g/dL Hct 34.4 L (38.0-50.0) % MCV 88.7 (80.0-98.0) fL MCH 30.7 (27.0-32.0) pg MCHC 34.6 (31.0-37.0) g/dL RDW Std Deviation 42.2 (28.0-62.0) fl RDW Coeff of Jose 13 (11.0-15.0) % Plt Count 293 (150-400) K/uL MPV 10.40 (7.40-12.00) fL Neut % (Auto) 82.7 H (48.0-80.0) % Lymph % (Auto) 11.0 L (16.0-40.0) % [place] % (Auto) 6.1 (0.0-15.0) % Eos % (Auto) 0.2 (0.0-7.0) % Baso % (Auto) 0.0 (0.0-1.5) % Neut # (Auto) 8.9 H (1.4-5.7) K/uL Lymph # (Auto) 1.2 (0.6-2.4) K/uL [place] # (Auto) 0.7 (0.0-0.8) K/uL Eos # (Auto) 0.0 (0.0-0.7) K/uL Baso # (Auto) 0.0 (0.0-0.1) K/uL Nucleated RBC % 0.0 /100WBC Nucleated RBCs # 0 K/uL Sodium 140 (136-148) mmol/L Potassium 4.1 (3.5-5.1) mmol/L Chloride 103 (98-107) mmol/L Carbon Dioxide 28.4 (21.0-32.0) mmol/L BUN 19 H (7.0-18.0) mg/dL Creatinine 1.0 (0.8-1.3) mg/dL Est Cr Clr Drug Dosing 88.38 mL/min Estimated GFR (MDRD) > 60.0 ml/min Glucose 113 H (74-106) mg/dL Calcium 7.8 L (8.5-10.1) mg/dL Total Bilirubin 0.8 (0.2-1.0) mg/dL AST 22 (15-37) IU/L ALT 68 H (14-63) IU/L Alkaline Phosphatase 60 (46-116) U/L Total Protein 5.4 L (6.4-8.2) g/dL Albumin 2.1 L (3.4-5.0) g/dL Globulin 3.3 (2.6-4.0) g/dL Albumin/Globulin Ratio 0.6 L (0.9-1.6) Procalcitonin 0.12 H ng/mL Earl Results Last 24 Hours: Microbiology 02/27/21 10:33 Aerobic Blood Culture - Preliminary Blood - Venous - Lab Draw NO GROWTH AFTER 2 DAYS Anaerobic Blood Culture - Preliminary NO GROWTH AFTER 2 DAYS 02/27/21 10:23 Aerobic Blood Culture - Preliminary Blood - Venous NO GROWTH AFTER 2 DAYS Anaerobic Blood Culture - Preliminary NO GROWTH AFTER 2 DAYS Med Orders - Current: Current Medications Acetaminophen (Acetaminophen 325 Mg Tab) 650 mg PO Q4H PRN PRN Reason: Pain (Mild 1-3)/fever Albuterol/Ipratropium (Albuterol/Ipratropium 4 Gm Inhalation [place]) 1 gm INH QID PRN PRN Reason: wheezing Last Admin: 03/01/21 08:40 Dose: 1 dose Documented by: Benzonatate (Benzonatate 100 Mg Cap) 100 mg PO Q6H PRN PRN Reason: Cough Dexamethasone (Dexamethasone 4 Mg Tab) 6 mg PO DAILY [facility] Last Admin: 03/01/21 08:40 Dose: 6 mg Documented by: Enoxaparin Sodium (Enoxaparin 40 Mg/0.4 Ml Syringe) 40 mg SUBCUT Q24H [facility] Last Admin: 02/28/21 15:33 Dose: 40 mg Documented by: Remdesivir 100 mg/ Sodium (Chloride) 100 mls @ 100 mls/hr IV Q24H [facility] Stop: 03/03/21 16:59 Last Admin: 02/28/21 15:33 Dose: 100 mls/hr Documented by: Ceftriaxone Sodium/Dextrose 1 (gm/ Premix) 50 mls @ 100 mls/hr IV Q24H [facility] Last Admin: 02/28/21 16:42 Dose: 100 mls/hr Documented by: Azithromycin 500 mg/ Sodium (Chloride) 250 mls @ 250 mls/hr IV Q24H [facility] Last Admin: 02/28/21 17:13 Dose: 250 mls/hr Documented by: Melatonin (Melatonin 3 Mg Tab) 6 mg PO BEDTIME PRN PRN Reason: Insomnia Discontinued Medications Albuterol/Ipratropium (Albuterol/Ipratropium 3.0-0.5 Mg/3 Ml Neb Soln) 3 ml NEB ONETIME ONE Stop: 02/27/21 09:10 Last Admin: 02/27/21 09:35 Dose: 3 ml Documented by: Dexamethasone (Dexamethasone 4 Mg Tab) 6 mg PO ONETIME ONE Stop: 02/27/21 13:52 Last Admin: 02/27/21 14:02 Dose: 6 mg Documented by: Ceftriaxone Sodium/Dextrose 2 (gm/ Premix) 50 mls @ 100 mls/hr IV ONETIME ONE Stop: 02/27/21 10:36 Last Admin: 02/27/21 10:40 Dose: 100 mls/hr Documented by: Azithromycin 500 mg/ Sodium (Chloride) 250 mls @ 250 mls/hr IV ONETIME [facility] Last Admin: 02/27/21 11:26 Dose: 250 mls/hr Documented by: Lactated Ringer's (Ringers, Lactated) 1,000 mls @ 999 mls/hr IV ASDIRECTED [facility] Last Admin: 02/27/21 10:34 Dose: 999 mls/hr Documented by: Lactated Ringer's (Ringers, Lactated) 1,000 mls @ 150 mls/hr IV ASDIRECTED [facility] Last Admin: 02/27/21 13:25 Dose: 150 mls/hr Documented by: Remdesivir 200 mg/ Sodium (Chloride) 250 mls @ 250 mls/hr IV ONETIME ONE Stop: 02/27/21 13:52 Last Admin: 02/27/21 14:24 Dose: 250 mls/hr Documented by: Remdesivir 200 mg/ Sodium (Chloride) 250 mls @ 250 mls/hr IV ONETIME ONE Stop: 02/27/21 14:59 Last Admin: 02/27/21 14:29 Dose: Not Given Documented by: Ceftriaxone Sodium 1 gm/ (Sodium Chloride) 50 mls @ 100 mls/hr IV Q24H [facility] Last Admin: 02/28/21 18:22 Dose: Not Given Documented by: - Exam Quality Assessment: Supplemental Oxygen General: Alert, Oriented Neck: Supple, Trachea Midline Lungs: Decreased Breath Sounds, Crackles, Rales Cardiovascular: Regular Rate, Regular Rhythm GI/Abdominal Exam: Normal Bowel Sounds, Soft, Non-Tender Extremities: Normal Inspection, Normal Range of Motion - Patient Data Lab Results Last 24 hrs: Laboratory Results - last 24 hr 02/28/21 03/01/21 03/01/21 Range/Units 05:45 06:50 06:50 WBC 10.70 (4.0-11.0) K/uL RBC 3.88 L (4.50-5.90) M/uL Hgb 11.9 L (13.0-17.0) g/dL Hct 34.4 L (38.0-50.0) % MCV 88.7 (80.0-98.0) fL MCH 30.7 (27.0-32.0) pg MCHC 34.6 (31.0-37.0) g/dL RDW Std Deviation 42.2 (28.0-62.0) fl RDW Coeff of Jose 13 (11.0-15.0) % Plt Count 293 (150-400) K/uL MPV 10.40 (7.40-12.00) fL Neut % (Auto) 82.7 H (48.0-80.0) % Lymph % (Auto) 11.0 L (16.0-40.0) % [place] % (Auto) 6.1 (0.0-15.0) % Eos % (Auto) 0.2 (0.0-7.0) % Baso % (Auto) 0.0 (0.0-1.5) % Neut # (Auto) 8.9 H (1.4-5.7) K/uL Lymph # (Auto) 1.2 (0.6-2.4) K/uL [place] # (Auto) 0.7 (0.0-0.8) K/uL Eos # (Auto) 0.0 (0.0-0.7) K/uL Baso # (Auto) 0.0 (0.0-0.1) K/uL Nucleated RBC % 0.0 /100WBC Nucleated RBCs # 0 K/uL Sodium 140 (136-148) mmol/L Potassium 4.1 (3.5-5.1) mmol/L Chloride 103 (98-107) mmol/L Carbon Dioxide 28.4 (21.0-32.0) mmol/L BUN 19 H (7.0-18.0) mg/dL Creatinine 1.0 (0.8-1.3) mg/dL Est Cr Clr Drug Dosing 88.38 mL/min Estimated GFR (MDRD) > 60.0 ml/min Glucose 113 H (74-106) mg/dL Calcium 7.8 L (8.5-10.1) mg/dL Total Bilirubin 0.8 (0.2-1.0) mg/dL AST 22 (15-37) IU/L ALT 68 H (14-63) IU/L Alkaline Phosphatase 60 (46-116) U/L Total Protein 5.4 L (6.4-8.2) g/dL Albumin 2.1 L (3.4-5.0) g/dL Globulin 3.3 (2.6-4.0) g/dL Albumin/Globulin Ratio 0.6 L (0.9-1.6) Procalcitonin 0.12 H ng/mL Result Diagrams: 03/01/21 06:50 03/01/21 06:50 Earl Results Last 24 hrs: Microbiology 02/27/21 10:33 Aerobic Blood Culture - Preliminary Blood - Venous - Lab Draw NO GROWTH AFTER 2 DAYS Anaerobic Blood Culture - Preliminary NO GROWTH AFTER 2 DAYS 02/27/21 10:23 Aerobic Blood Culture - Preliminary Blood - Venous NO GROWTH AFTER 2 DAYS Anaerobic Blood Culture - Preliminary NO GROWTH AFTER 2 DAYS Sepsis Event Note - Evaluation Sepsis Screening Result: No Definite Risk - Focused Exam Vital Signs: Vital Signs Temp Pulse Resp BP Pulse Ox 03/01/21 12:00 2.7 C L 62 16 106/61 96 03/01/21 08:00 36.7 C 69 106/67 91 L 03/01/21 04:29 36.4 C 53 L 18 105/69 96 - Problem List & Annotations (1) COVID-19 SNOMED Code(s): 439634914 Code(s): U07.1 - COVID-19 Status: Acute Current Visit: Yes (2) Community acquired bacterial pneumonia SNOMED Code(s): 212967127, 282513889 Code(s): J15.9 - UNSPECIFIED BACTERIAL PNEUMONIA Status: Acute Current Vi sit: Yes - Problem List Review Problem List Initiated/Reviewed/Updated: Yes - Plan Plan:: 56 yo male admitted with COVID pneumonia with hypoxia COVID: treating with dexamethasone, and remdesivir Pneumonia: on Rocephin and azithromycin for possible bacterial pnemonia Lovenox for dvt prophylaxis Continue Combivent Tessalon Perles for cough Wean off oxygen as tolerated currently requiring 5 L of low pressure nasal cannula Resume home meds as appropriate, hold off on resuming antihypertensives as blood pressure is on the lower side
[2021-03-01] MEDS: REMDESIVIR 100 MG in Sodium Chloride 0.9% 100 ML IV SCH (15:54)
[2021-03-01] MEDS: Enoxaparin 40 MG/0.4 ML Syringe SUBCUT SCH (17:00)
[2021-03-01] MEDS: cefTRIAXone 1 GM in Premix Bag 1 BAG IV SCH (17:00)
[2021-03-01] MEDS: Azithromycin 500 MG in Sodium Chloride 0.9% 250 ML IV SCH (17:43)
[2021-03-01] MEDS: Pantoprazole 40 MG in Sodium Chloride 0.9% 10 ML IV SCH (20:51)
[2021-03-01] MEDS: Simvastatin 20 MG Tab PO SCH (20:53)
[2021-03-02 07:10] LABS: BLOOD UREA NITROGEN,BUN 18 mg/dL (7.0-18.0); CARBON DIOXIDE,CO2 29.5 mmol/L (21.0-32.0); CHLORIDE,CL 105 mmol/L (98-107); GLUCOSE RANDOM 95 mg/dL (74-106); POTASSIUM,K 4.3 mmol/L (3.5-5.1); SODIUM,NA 142 mmol/L (136-148)
[2021-03-02] MEDS: Dexamethasone 4 MG Tab PO SCH (09:07)
[2021-03-02] MEDS: Allopurinol 100 MG Tab PO SCH (09:07)
[2021-03-02] MEDS: Pantoprazole 40 MG in Sodium Chloride 0.9% 10 ML IV SCH (09:08)
--- NOTE | 2021-03-02 14:12 | PCM.PN ---
- General Info Date of Service: 03/02/21 Admission Dx/Problem (Free Text): Admission Diagnosis/Problem Admission Diagnosis/Problem Hypoxia Subjective Update: Patient seen at bedside, no acute distress, tolerating oxygen well Functional Status: Reports: Tolerating Diet, Ambulating, Urinating - Review of Systems General: Reports: Weakness, Fatigue. Denies: Fever, Malaise Pulmonary: Reports: Shortness of Breath, Cough, Sputum Cardiovascular: Reports: Dyspnea on Exertion. Denies: Chest Pain, Palpitations, Orthopnea Gastrointestinal: Denies: Abdominal Pain, Constipation, Decreased Appetite Genitourinary: Denies: Dysuria, Frequency, Burning Musculoskeletal: Denies: Neck Pain, Shoulder Pain, Arm Pain Skin: Denies: Cyanosis, Jaundice, Mottled Neurological: Denies: Confusion, Dizziness, Headache - Patient Data Vitals - Most Recent: Last Vital Signs Temp 36.5 C 03/02/21 12:00 Pulse 75 03/02/21 12:00 Resp 19 03/02/21 12:00 BP 111/78 03/02/21 12:00 Pulse Ox 91 L 03/02/21 12:00 Weight - Most Recent: 110.722 kg I&O - Last 24 Hours: Intake & Output 03/01/21 03/02/21 03/02/21 22:59 06:59 14:59 Intake Total 720 650 Output Total 400 0 Balance 320 650 Lab Results Last 24 Hours: Laboratory Results - last 24 hr 03/02/21 03/02/21 Range/Units 06:15 06:15 WBC 10.43 (4.0-11.0) K/uL RBC 4.08 L (4.50-5.90) M/uL Hgb 12.4 L (13.0-17.0) g/dL Hct 36.6 L (38.0-50.0) % MCV 89.7 (80.0-98.0) fL MCH 30.4 (27.0-32.0) pg MCHC 33.9 (31.0-37.0) g/dL RDW Std Deviation 43.7 (28.0-62.0) fl RDW Coeff of Jose 13 (11.0-15.0) % Plt Count 335 (150-400) K/uL MPV 10.10 (7.40-12.00) fL Neut % (Auto) 81.4 H (48.0-80.0) % Lymph % (Auto) 12.6 L (16.0-40.0) % [place] % (Auto) 5.6 (0.0-15.0) % Eos % (Auto) 0.3 (0.0-7.0) % Baso % (Auto) 0.1 (0.0-1.5) % Neut # (Auto) 8.5 H (1.4-5.7) K/uL Lymph # (Auto) 1.3 (0.6-2.4) K/uL [place] # (Auto) 0.6 (0.0-0.8) K/uL Eos # (Auto) 0.0 (0.0-0.7) K/uL Baso # (Auto) 0.0 (0.0-0.1) K/uL Nucleated RBC % 0.0 /100WBC Nucleated RBCs # 0 K/uL Sodium 142 (136-148) mmol/L Potassium 4.3 (3.5-5.1) mmol/L Chloride 105 (98-107) mmol/L Carbon Dioxide 29.5 (21.0-32.0) mmol/L BUN 18 (7.0-18.0) mg/dL Creatinine 1.0 (0.8-1.3) mg/dL Est Cr Clr Drug Dosing 88.38 mL/min Estimated GFR (MDRD) > 60.0 ml/min Glucose 95 (74-106) mg/dL Calcium 7.6 L (8.5-10.1) mg/dL Total Bilirubin 0.9 (0.2-1.0) mg/dL AST 16 (15-37) IU/L ALT 55 (14-63) IU/L Alkaline Phosphatase 61 (46-116) U/L Total Protein 5.6 L (6.4-8.2) g/dL Albumin 2.1 L (3.4-5.0) g/dL Globulin 3.5 (2.6-4.0) g/dL Albumin/Globulin Ratio 0.6 L (0.9-1.6) Earl Results Last 24 Hours: Microbiology 02/27/21 10:33 Aerobic Blood Culture - Preliminary Blood - Venous - Lab Draw NO GROWTH AFTER 3 DAYS Anaerobic Blood Culture - Preliminary NO GROWTH AFTER 3 DAYS 02/27/21 10:23 Aerobic Blood Culture - Preliminary Blood - Venous NO GROWTH AFTER 3 DAYS Anaerobic Blood Culture - Preliminary NO GROWTH AFTER 3 DAYS Med Orders - Current: Current Medications Acetaminophen (Acetaminophen 325 Mg Tab) 650 mg PO Q4H PRN PRN Reason: Pain (Mild 1-3)/fever Albuterol/Ipratropium (Albuterol/Ipratropium 4 Gm Inhalation [place]) 1 gm INH QID PRN PRN Reason: wheezing Last Admin: 03/01/21 08:40 Dose: 1 dose Documented by: Allopurinol (Allopurinol 100 Mg Tab) 100 mg PO DAILY [facility] Last Admin: 03/02/21 09:07 Dose: 100 mg Documented by: Benzonatate (Benzonatate 100 Mg Cap) 100 mg PO Q6H PRN PRN Reason: Cough Dexamethasone (Dexamethasone 4 Mg Tab) 6 mg PO DAILY [facility] Last Admin: 03/02/21 09:07 Dose: 6 mg Documented by: Enoxaparin Sodium (Enoxaparin 40 Mg/0.4 Ml Syringe) 40 mg SUBCUT Q24H [facility] Last Admin: 03/01/21 17:00 Dose: 40 mg Documented by: Remdesivir 100 mg/ Sodium (Chloride) 100 mls @ 100 mls/hr IV Q24H [facility] Stop: 03/03/21 16:59 Last Admin: 03/01/21 15:54 Dose: 100 mls/hr Documented by: Ceftriaxone Sodium/Dextrose 1 (gm/ Premix) 50 mls @ 100 mls/hr IV Q24H [facility] Last Admin: 03/01/21 17:00 Dose: 100 mls/hr Documented by: Azithromycin 500 mg/ Sodium (Chloride) 250 mls @ 250 mls/hr IV Q24H [facility] Last Admin: 03/01/21 17:43 Dose: 250 mls/hr Documented by: Pantoprazole Sodium 40 mg/ (Sodium Chloride) 10 mls @ 300 mls/hr IV DAILY [facility] Melatonin (Melatonin 3 Mg Tab) 6 mg PO BEDTIME PRN PRN Reason: Insomnia Simvastatin (Simvastatin 20 Mg Tab) 20 mg PO BEDTIME [facility] Last Admin: 03/01/21 20:53 Dose: 20 mg Documented by: Discontinued Medications Albuterol/Ipratropium (Albuterol/Ipratropium 3.0-0.5 Mg/3 Ml Neb Soln) 3 ml NEB ONETIME ONE Stop: 02/27/21 09:10 Last Admin: 02/27/21 09:35 Dose: 3 ml Documented by: Dexamethasone (Dexamethasone 4 Mg Tab) 6 mg PO ONETIME ONE Stop: 02/27/21 13:52 Last Admin: 02/27/21 14:02 Dose: 6 mg Documented by: Ceftriaxone Sodium/Dextrose 2 (gm/ Premix) 50 mls @ 100 mls/hr IV ONETIME ONE Stop: 02/27/21 10:36 Last Admin: 02/27/21 10:40 Dose: 100 mls/hr Documented by: Azithromycin 500 mg/ Sodium (Chloride) 250 mls @ 250 mls/hr IV ONETIME [facility] Last Admin: 02/27/21 11:26 Dose: 250 mls/hr Documented by: Lactated Ringer's (Ringers, Lactated) 1,000 mls @ 999 mls/hr IV ASDIRECTED [facility] Last Admin: 02/27/21 10:34 Dose: 999 mls/hr Documented by: Lactated Ringer's (Ringers, Lactated) 1,000 mls @ 150 mls/hr IV ASDIRECTED [facility] Last Admin: 02/27/21 13:25 Dose: 150 mls/hr Documented by: Remdesivir 200 mg/ Sodium (Chloride) 250 mls @ 250 mls/hr IV ONETIME ONE Stop: 02/27/21 13:52 Last Admin: 02/27/21 14:24 Dose: 250 mls/hr Documented by: Remdesivir 200 mg/ Sodium (Chloride) 250 mls @ 250 mls/hr IV ONETIME ONE Stop: 02/27/21 14:59 Last Admin: 02/27/21 14:29 Dose: Not Given Documented by: Ceftriaxone Sodium 1 gm/ (Sodium Chloride) 50 mls @ 100 mls/hr IV Q24H [facility] Last Admin: 02/28/21 18:22 Dose: Not Given Documented by: Pantoprazole Sodium 40 mg/ (Sodium Chloride) 10 mls @ 300 mls/hr IV DAILY [facility] Last Admin: 03/02/21 09:08 Dose: 300 mls/hr Documented by: - Exam Quality Assessment: Supplemental Oxygen General: Alert, Oriented Neck: Supple, No JVD Lungs: Normal Respiratory Effort, Decreased Breath Sounds, Crackles Cardiovascular: Regular Rate, Regular Rhythm. No: Irregular Rhythm, Bradycardia, Tachycardia GI/Abdominal Exam: Normal Bowel Sounds, Soft, Non-Tender Extremities: Normal Inspection, Normal Range of Motion - Patient Data Lab Results Last 24 hrs: Laboratory Results - last 24 hr 03/02/21 03/02/21 Range/Units 06:15 06:15 WBC 10.43 (4.0-11.0) K/uL RBC 4.08 L (4.50-5.90) M/uL Hgb 12.4 L (13.0-17.0) g/dL Hct 36.6 L (38.0-50.0) % MCV 89.7 (80.0-98.0) fL MCH 30.4 (27.0-32.0) pg MCHC 33.9 (31.0-37.0) g/dL RDW Std Deviation 43.7 (28.0-62.0) fl RDW Coeff of Jose 13 (11.0-15.0) % Plt Count 335 (150-400) K/uL MPV 10.10 (7.40-12.00) fL Neut % (Auto) 81.4 H (48.0-80.0) % Lymph % (Auto) 12.6 L (16.0-40.0) % [place] % (Auto) 5.6 (0.0-15.0) % Eos % (Auto) 0.3 (0.0-7.0) % Baso % (Auto) 0.1 (0.0-1.5) % Neut # (Auto) 8.5 H (1.4-5.7) K/uL Lymph # (Auto) 1.3 (0.6-2.4) K/uL [place] # (Auto) 0.6 (0.0-0.8) K/uL Eos # (Auto) 0.0 (0.0-0.7) K/uL Baso # (Auto) 0.0 (0.0-0.1) K/uL Nucleated RBC % 0.0 /100WBC Nucleated RBCs # 0 K/uL Sodium 142 (136-148) mmol/L Potassium 4.3 (3.5-5.1) mmol/L Chloride 105 (98-107) mmol/L Carbon Dioxide 29.5 (21.0-32.0) mmol/L BUN 18 (7.0-18.0) mg/dL Creatinine 1.0 (0.8-1.3) mg/dL Est Cr Clr Drug Dosing 88.38 mL/min Estimated GFR (MDRD) > 60.0 ml/min Glucose 95 (74-106) mg/dL Calcium 7.6 L (8.5-10.1) mg/dL Total Bilirubin 0.9 (0.2-1.0) mg/dL AST 16 (15-37) IU/L ALT 55 (14-63) IU/L Alkaline Phosphatase 61 (46-116) U/L Total Protein 5.6 L (6.4-8.2) g/dL Albumin 2.1 L (3.4-5.0) g/dL Globulin 3.5 (2.6-4.0) g/dL Albumin/Globulin Ratio 0.6 L (0.9-1.6) Result Diagrams: 03/02/21 06:15 03/02/21 06:15 Earl Results Last 24 hrs: Microbiology 02/27/21 10:33 Aerobic Blood Culture - Preliminary Blood - Venous - Lab Draw NO GROWTH AFTER 3 DAYS Anaerobic Blood Culture - Preliminary NO GROWTH AFTER 3 DAYS 02/27/21 10:23 Aerobic Blood Culture - Preliminary Blood - Venous NO GROWTH AFTER 3 DAYS Anaerobic Blood Culture - Preliminary NO GROWTH AFTER 3 DAYS Sepsis Event Note - Evaluation Sepsis Screening Result: No Definite Risk - Focused Exam Vital Signs: Vital Signs Temp Pulse Resp BP Pulse Ox 03/02/21 12:00 36.5 C 75 19 111/78 91 L 03/02/21 08:00 36.7 C 75 20 105/67 87 L 03/02/21 04:49 36.3 C 56 L 18 108/87 93 L - Problem List & Annotations (1) COVID-19 SNOMED Code(s): 063179066 Code(s): U07.1 - COVID-19 Status: Acute Current Visit: Yes (2) Community acquired bacterial pneumonia SNOMED Code(s): 044001283, 816198673 Code(s): J15.9 - UNSPECIFIED BACTERIAL PNEUMONIA Status: Acute Current Visit: Yes - Problem List Review Problem List Initiated/Reviewed/Updated: Yes - My Orders Last 24 Hours: My Active Orders 03/01/21 21:00 Simvastatin [Zocor] 20 mg PO BEDTIME 10/17/21 09:00 allopurinoL [Zyloprim] 100 mg PO DAILY - Plan Plan:: 56 yo male admitted with COVID pneumonia with hypoxia COVID: treating with dexamethasone, and remdesivir Pneumonia: on Rocephin and azithromycin for possible bacterial pneumonia Lovenox for dvt prophylaxis Continue Combivent Tessalon Perles for cough Wean off oxygen as tolerated currently requiring 3 L of low pressure nasal cannula Resume home meds as appropriate, hold off on resuming antihypertensives as blood pressure is on the lower side
[2021-03-02] MEDS: REMDESIVIR 100 MG in Sodium Chloride 0.9% 100 ML IV SCH (15:40)
[2021-03-02] MEDS: Enoxaparin 40 MG/0.4 ML Syringe SUBCUT SCH (16:52)
[2021-03-02] MEDS: cefTRIAXone 1 GM in Premix Bag 1 BAG IV SCH (16:53)
[2021-03-02] MEDS: Azithromycin 500 MG in Sodium Chloride 0.9% 250 ML IV SCH (17:32)
[2021-03-02] MEDS: Simvastatin 20 MG Tab PO SCH (21:50)
[2021-03-03 06:52] LABS: BLOOD UREA NITROGEN,BUN 15 mg/dL (7.0-18.0); CHLORIDE,CL 106 mmol/L (98-107); GLUCOSE RANDOM 102 mg/dL (74-106); POTASSIUM,K 4.8 mmol/L (3.5-5.1); SODIUM,NA 143 mmol/L (136-148)
[2021-03-03] MEDS: Allopurinol 100 MG Tab PO SCH (08:38)
[2021-03-03] MEDS: Dexamethasone 4 MG Tab PO SCH (08:38)
[2021-03-03] MEDS ORDERED: Pantoprazole 40 MG in Sodium Chloride 0.9% 10 ML IV SCH (09:00)
[2021-03-03] MEDS: Albuterol/Ipratropium 4 GM Inhalation Spray INH PRN (09:04)
--- NOTE | 2021-03-03 12:18 | PCM.DCSUM1 ---
Discharge Summary - Hospital Course Diagnosis: Stroke: No - Discharge Data Discharge Disposition: Home, Self-Care 01 Condition: Stable - Referral to Home Health Primary Care Physician: Garret Bah MD - Discharge Diagnosis/Problem(s) (1) COVID-19 SNOMED Code(s): 077254994 ICD Code: U07.1 - COVID-19 Status: Acute Current Visit: Yes (2) Community acquired bacterial pneumonia SNOMED Code(s): 826421294, 512555905 ICD Code: J15.9 - UNSPECIFIED BACTERIAL PNEUMONIA Status: Acute Current Visit: Yes - Patient Instructions Diet: Heart Healthy Diet Activity: As Tolerated Driving: May Drive Today Showering/Bathing: May Shower Notify Provider of: Fever, Increased Pain, Swelling and Redness, Drainage, Nausea and/or Vomiting - Discharge Plan *PRESCRIPTION DRUG MONITORING PROGRAM REVIEWED*: No *COPY OF PRESCRIPTION DRUG MONITORING REPORT IN PATIENT FLOR: No Prescriptions/Med Rec: Albuterol/Ipratropium [Combivent Respimat] 1 gm INH QID PRN #1 inhaler PRN Reason: wheezing levoFLOXacin [Levaquin] 750 mg PO DAILY #5 tab Home Medications: Home Meds Allopurinol [Zyloprim] 100 mg PO DAILY 11/09/16 [History] Hydrochlorothiazide 25 mg PO DAILY 11/09/16 [History] Simvastatin [Zocor] 20 mg PO DAILY 11/09/16 [History] amLODIPine Besylate [Amlodipine Besylate] 10 mg PO DAILY 11/09/16 [History] Albuterol/Ipratropium [Combivent Respimat] 1 gm INH QID PRN #1 inhaler 03/03/21 [Rx] levoFLOXacin [Levaquin] 750 mg PO DAILY #5 tab 03/03/21 [Rx] Oxygen Therapy Mode: Room Air Forms: ED Department Discharge Referrals: Garret Bah MD [Primary Care Provider] - - Patient Data Vitals - Most Recent: Last Vital Signs Temp 36.4 C 03/03/21 08:00 Pulse 60 03/03/21 08:00 Resp 22 H 03/03/21 08:00 BP 117/65 03/03/21 08:00 Pulse Ox 95 03/03/21 08:00 Weight - Most Recent: 110.722 kg I&O - Last 24 hours: Intake & Output 10/17/21 10/18/21 10/18/21 22:59 06:59 14:59 Intake Total 1210 950 Output Total 0 Balance 1210 950 Lab Results - Last 24 hrs: Laboratory Results - last 24 hr 03/03/21 03/03/21 Range/Units 05:59 05:59 WBC 7.30 (4.0-11.0) K/uL RBC 4.17 L (4.50-5.90) M/uL Hgb 12.7 L (13.0-17.0) g/dL Hct 37.3 L (38.0-50.0) % MCV 89.4 (80.0-98.0) fL MCH 30.5 (27.0-32.0) pg MCHC 34.0 (31.0-37.0) g/dL RDW Std Deviation 42.6 (28.0-62.0) fl RDW Coeff of Jose 13 (11.0-15.0) % Plt Count 322 (150-400) K/uL MPV 10.20 (7.40-12.00) fL Neut % (Auto) 74.8 (48.0-80.0) % Lymph % (Auto) 18.2 (16.0-40.0) % [place] % (Auto) 6.8 (0.0-15.0) % Eos % (Auto) 0.1 (0.0-7.0) % Baso % (Auto) 0.1 (0.0-1.5) % Neut # (Auto) 5.5 (1.4-5.7) K/uL Lymph # (Auto) 1.3 (0.6-2.4) K/uL [place] # (Auto) 0.5 (0.0-0.8) K/uL Eos # (Auto) 0.0 (0.0-0.7) K/uL Baso # (Auto) 0.0 (0.0-0.1) K/uL Nucleated RBC % 0.0 /100WBC Nucleated RBCs # 0 K/uL Sodium 143 (136-148) mmol/L Potassium 4.8 (3.5-5.1) mmol/L Chloride 106 (98-107) mmol/L Carbon Dioxide 32.0 (21.0-32.0) mmol/L BUN 15 (7.0-18.0) mg/dL Creatinine 1.0 (0.8-1.3) mg/dL Est Cr Clr Drug Dosing 88.38 mL/min Estimated GFR (MDRD) > 60.0 ml/min Glucose 102 (74-106) mg/dL Calcium 8.0 L (8.5-10.1) mg/dL Total Bilirubin 0.8 (0.2-1.0) mg/dL AST 14 L (15-37) IU/L ALT 48 (14-63) IU/L Alkaline Phosphatase 62 (46-116) U/L Total Protein 5.8 L (6.4-8.2) g/dL Albumin 2.2 L (3.4-5.0) g/dL Globulin 3.6 (2.6-4.0) g/dL Albumin/Globulin Ratio 0.6 L (0.9-1.6) EDDIE Results - Last 24 hrs: Microbiology 02/27/21 10:33 Aerobic Blood Culture - Preliminary Blood - Venous - Lab Draw NO GROWTH AFTER 4 DAYS Anaerobic Blood Culture - Preliminary NO GROWTH AFTER 4 DAYS 02/27/21 10:23 Aerobic Blood Culture - Preliminary Blood - Venous NO GROWTH AFTER 4 DAYS Anaerobic Blood Culture - Preliminary NO GROWTH AFTER 4 DAYS Med Orders - Current: Current Medications Acetaminophen (Acetaminophen 325 Mg Tab) 650 mg PO Q4H PRN PRN Reason: Pain (Mild 1-3)/fever Albuterol/Ipratropium (Albuterol/Ipratropium 4 Gm Inhalation [place]) 1 gm INH QID PRN PRN Reason: wheezing Last Admin: 03/03/21 09:04 Dose: 1 dose Documented by: Allopurinol (Allopurinol 100 Mg Tab) 100 mg PO DAILY [facility] Last Admin: 03/03/21 08:38 Dose: 100 mg Documented by: Benzonatate (Benzonatate 100 Mg Cap) 100 mg PO Q6H PRN PRN Reason: Cough Dexamethasone (Dexamethasone 4 Mg Tab) 6 mg PO DAILY [facility] Last Admin: 03/03/21 08:38 Dose: 6 mg Documented by: Enoxaparin Sodium (Enoxaparin 40 Mg/0.4 Ml Syringe) 40 mg SUBCUT Q24H [facility] Last Admin: 03/02/21 16:52 Dose: 40 mg Documented by: Ceftriaxone Sodium/Dextrose 1 (gm/ Premix) 50 mls @ 100 mls/hr IV Q24H [facility] Last Admin: 03/02/21 16:53 Dose: 100 mls/hr Documented by: Azithromycin 500 mg/ Sodium (Chloride) 250 mls @ 250 mls/hr IV Q24H [facility] Last Admin: 03/02/21 17:32 Dose: 250 mls/hr Documented by: Pantoprazole Sodium 40 mg/ (Sodium Chloride) 10 mls @ 300 mls/hr IV DAILY [facility] Last Admin: 03/03/21 08:38 Dose: 300 mls/hr Documented by: Remdesivir 100 mg/ Sodium (Chloride) 100 mls @ 100 mls/hr IV Q24H [facility] Stop: 03/03/21 13:59 Melatonin (Melatonin 3 Mg Tab) 6 mg PO BEDTIME PRN PRN Reason: Insomnia Simvastatin (Simvastatin 20 Mg Tab) 20 mg PO BEDTIME [facility] Last Admin: 03/02/21 21:50 Dose: 20 mg Documented by: Discontinued Medications Albuterol/Ipratropium (Albuterol/Ipratropium 3.0-0.5 Mg/3 Ml Neb Soln) 3 ml NEB ONETIME ONE Stop: 02/27/21 09:10 Last Admin: 02/27/21 09:35 Dose: 3 ml Documented by: Dexamethasone (Dexamethasone 4 Mg Tab) 6 mg PO ONETIME ONE Stop: 02/27/21 13:52 Last Admin: 02/27/21 14:02 Dose: 6 mg Documented by: Ceftriaxone Sodium/Dextrose 2 (gm/ Premix) 50 mls @ 100 mls/hr IV ONETIME ONE Stop: 02/27/21 10:36 Last Admin: 02/27/21 10:40 Dose: 100 mls/hr Documented by: Azithromycin 500 mg/ Sodium (Chloride) 250 mls @ 250 mls/hr IV ONETIME [facility] Last Admin: 02/27/21 11:26 Dose: 250 mls/hr Documented by: Lactated Ringer's (Ringers, Lactated) 1,000 mls @ 999 mls/hr IV ASDIRECTED [facility] Last Admin: 02/27/21 10:34 Dose: 999 mls/hr Documented by: Lactated Ringer's (Ringers, Lactated) 1,000 mls @ 150 mls/hr IV ASDIRECTED [facility] Last Admin: 02/27/21 13:25 Dose: 150 mls/hr Documented by: Remdesivir 200 mg/ Sodium (Chloride) 250 mls @ 250 mls/hr IV ONETIME ONE Stop: 02/27/21 13:52 Last Admin: 02/27/21 14:24 Dose: 250 mls/hr Documented by: Remdesivir 200 mg/ Sodium (Chloride) 250 mls @ 250 mls/hr IV ONETIME ONE Stop: 02/27/21 14:59 Last Admin: 02/27/21 14:29 Dose: Not Given Documented by: Ceftriaxone Sodium 1 gm/ (Sodium Chloride) 50 mls @ 100 mls/hr IV Q24H [facility] Last Admin: 02/28/21 18:22 Dose: Not Given Documented by: Remdesivir 100 mg/ Sodium (Chloride) 100 mls @ 100 mls/hr IV Q24H [facility] Stop: 03/03/21 16:59 Last Admin: 03/02/21 15:40 Dose: 100 mls/hr Documented by: Pantoprazole Sodium 40 mg/ (Sodium Chloride) 10 mls @ 300 mls/hr IV DAILY [facility] Last Admin: 03/02/21 09:08 Dose: 300 mls/hr Documented by:
[2021-03-03 12:21] VITALS: BP 119/83; PULSE 74
[2021-03-03] MEDS ORDERED: REMDESIVIR 100 MG in Sodium Chloride 0.9% 100 ML IV SCH (13:00)
== END 2021-03-03 14:15 | disposition home or self-care (01) | DRG 137 ==
LOC: MW.ED 08:00 → MW.MS 13:54
PROVIDERS: ADMIT Internal Medicine; ATTEND Internal Medicine
PROC: 8E0ZXY6 Isolation (ICD-10-PCS; principal; 2021-02-27)
PROC: XW033E5 Introduction of Remdesivir Anti-infective into Peripheral Vein, Percutaneous Approach, New Technology Group 5 (ICD-10-PCS; 2021-02-27)
PROC: 3E0DX3Z Introduction of Anti-inflammatory into Mouth and Pharynx, External Approach (ICD-10-PCS; 2021-02-27)
DX: U07.1 COVID-19 (principal); J15.9 Unspecified bacterial pneumonia; H54.7 Unspecified visual loss; E78.00 Pure hypercholesterolemia, unspecified; E66.9 Obesity, unspecified; M19.90 Unspecified osteoarthritis, unspecified site; M10.9 Gout, unspecified; J12.82 Pneumonia due to coronavirus disease 2019; Z96.651 Presence of right artificial knee joint; Z87.891 Personal history of nicotine dependence; Z68.33 Body mass index [BMI] 33.0-33.9, adult; Z79.899 Other long term (current) drug therapy
CPT/HCPCS: 36415; 71045; 71045-26; 80048; 80053; 82247; 82248; 83605; 83735; 84145; 84484; 85025; 85610; 86140; 87040; 87804; 93005; 96365; 96367; 99291; 99292; A9270-GY; C9113; J0456; J0696; J1650; J7050; J7120; J7620-GY; J8540; U0002

== ENCOUNTER 2021-04-25 08:09 | Emergency (ER) | payer SELFPAY ==
--- NOTE | 2021-04-25 08:48 | EDM.PDOC ---
ED HPI GENERAL MEDICAL PROBLEM - General Chief Complaint: Skin Complaint Stated Complaint: PAIN IN LT LEG Time Seen by Provider: 04/25/21 08:16 Source of Information: Reports: Patient History Limitations: Reports: No Limitations - History of Present Illness INITIAL COMMENTS - FREE TEXT/NARRATIVE: Patient is a 56-year-old male w/ hypertension hyperlipidemia presents today for left lower extremity redness and swelling. Patient states that is warm and very painful to the touch. He denies any recent long trips or car rides about rides plane rides. Denies any fever chills nausea vomiting or any other systemic symptoms. Just has a pain and redness to the left lower extremity. Left lower leg Pain Score (Numeric/FACES): 4 - Related Data Allergies Allergy/AdvReac Type Severity Reaction Status Date / Time No Known Allergies Allergy Verified 04/25/21 08:49 Home Meds: Home Meds Allopurinol [Zyloprim] 100 mg PO DAILY 11/09/16 [History] Hydrochlorothiazide 25 mg PO DAILY 11/09/16 [History] Simvastatin [Zocor] 20 mg PO DAILY 11/09/16 [History] amLODIPine Besylate [Amlodipine Besylate] 10 mg PO DAILY 11/09/16 [History] Losartan [Cozaar] 25 mg PO DAILY 04/25/21 [History] Potassium Chloride 04/25/21 [History] Sulfamethoxazole/Trimethoprim [Bactrim Ds Tablet] 1 each PO BID 7 Days #14 tablet 04/25/21 [Rx] cephALEXin [Keflex] 500 mg PO Q6HR 7 Days #28 cap 04/25/21 [Rx] Past Medical History HEENT History: Reports: Impaired Vision, Other (See Below) Other HEENT History: wears glasses, has dentures Cardiovascular History: Reports: High Cholesterol, Hypertension Respiratory History: Reports: SOB Gastrointestinal History: Reports: Colon Polyp, Other (See Below) Other Gastrointestinal History: heartburn after surgery, tubulovillous adenoma of large intestine Genitourinary History: Reports: None 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 Musculoskeletal History: Reports: Arthritis, Fracture, Gout, Osteoarthritis Other Musculoskeletal History: 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 knee, Neurological History: Reports: Vertigo Psychiatric History: Reports: None Other Psychiatric History: fatigue Endocrine/Metabolic History: Reports: Obesity/BMI 30+ Hematologic History: Reports: Other (See Below) Other Hematologic History: hypokalemia Immunologic History: Reports: None Oncologic (Cancer) History: Reports: None Dermatologic History: Reports: Other (See Below) Other Dermatologic History: contact dermatitis - Infectious Disease History Infectious Disease History: Reports: Chicken Pox - Past Surgical History Head Surgeries/Procedures: Reports: None HEENT Surgical History: Reports: None Cardiovascular Surgical History: Reports: None Respiratory Surgical History: Reports: None GI Surgical History: Reports: None Male Surgical History: Reports: None Endocrine Surgical History: Reports: None Neurological Surgical History: Reports: None Musculoskeletal Surgical History: Reports: ORIF, Other (See Below) Other Musculoskeletal Surgeries/Procedures:: surgical tx for fx left ankle, left thumb surgery with tendon repair, right total knee replacement Oncologic Surgical History: Reports: None Dermatological Surgical History: Reports: None Social & Family History - Family History Family Medical History: No Pertinent Family History - Caffeine Use Caffeine Use: Reports: None Other Caffeine Use: Rarely - Recreational Drug Use Recreational Drug Use: No ED ROS GENERAL - Review of Systems Review Of Systems: See Below Constitutional: Reports: No Symptoms HEENT: Reports: No Symptoms Respiratory: Reports: No Symptoms Cardiovascular: Reports: No Symptoms Endocrine: Reports: No Symptoms GI/Abdominal: Reports: No Symptoms : Reports: No Symptoms Musculoskeletal: Reports: Leg Pain Skin: Reports: No Symptoms Neurological: Reports: No Symptoms Psychiatric: Reports: No Symptoms Hematologic/Lymphatic: Reports: No Symptoms Immunologic: Reports: No Symptoms ED EXAM, SKIN/RASH Exam: See Below Exam Limited By: No Limitations General Appearance: Alert, WD/WN, No Apparent Distress Eye Exam: Bilateral Eye: EOMI Ears: Normal External Exam Nose: Normal Inspection Throat/Mouth: Normal Inspection Head: Atraumatic, Normocephalic Neck: Normal Inspection Respiratory/Chest: No Respiratory Distress, Lungs Clear, Normal Breath Sounds Cardiovascular: Normal Peripheral Pulses, Regular Rate, Rhythm GI/Abdominal: Normal Bowel Sounds, Soft, Non-Tender Extremities: Normal Range of Motion, Redness. No: Normal Inspection (Redness and swelling left lower extremity), Non-Tender (Painful to touch) Neurological: Alert, Oriented, Normal Cognition, Normal Gait Course - Vital Signs Last Recorded V/S: Last Vital Signs Temp 99.3 F 04/25/21 09:19 Pulse 92 04/25/21 09:19 Resp 18 04/25/21 09:19 BP 130/70 04/25/21 09:19 Pulse Ox 96 04/25/21 09:19 - Orders/Labs/Meds Orders: Active Orders 24 hr Category Date Time Status VANCOMYCIN TROUGH [CHEM] Stat Lab 04/26/21 21:00 Ordered VANCOmycin 1.5 GM/300 ML 1.5 gm Med 04/25/21 09:45 Active Premix Bag 1 bag IV Q12H Medication Orders Vancomycin HCl 1.5 gm/ Premix 300 mls @ 200 mls/hr IV Q12H TINO Last Admin: 04/25/21 10:11 Dose: 200 mls/hr Documented by: VICENTE Labs: Laboratory Tests 04/25/21 04/25/21 04/25/21 Range/Units 08:35 08:35 08:35 WBC 13.42 H (4.0-11.0) K/uL RBC 4.68 (4.50-5.90) M/uL Hgb 14.4 (13.0-17.0) g/dL Hct 42.4 (38.0-50.0) % MCV 90.6 (80.0-98.0) fL MCH 30.8 (27.0-32.0) pg MCHC 34.0 (31.0-37.0) g/dL RDW Std Deviation 46.9 (28.0-62.0) fl RDW Coeff of Jose 14 (11.0-15.0) % Plt Count 208 (150-400) K/uL MPV 9.70 (7.40-12.00) fL Neut % (Auto) 78.7 (48.0-80.0) % Lymph % (Auto) 15.1 L (16.0-40.0) % [place] % (Auto) 5.7 (0.0-15.0) % Eos % (Auto) 0.4 (0.0-7.0) % Baso % (Auto) 0.1 (0.0-1.5) % Neut # (Auto) 10.6 H (1.4-5.7) K/uL Lymph # (Auto) 2.0 (0.6-2.4) K/uL [place] # (Auto) 0.8 (0.0-0.8) K/uL Eos # (Auto) 0.1 (0.0-0.7) K/uL Baso # (Auto) 0.0 (0.0-0.1) K/uL Nucleated RBC % 0.0 /100WBC Nucleated RBCs # 0 K/uL ESR 22 H (0-19) mm/hr Sodium 139 (136-148) mmol/L Potassium 4.6 (3.5-5.1) mmol/L Chloride 102 (98-107) mmol/L Carbon Dioxide 28.9 (21.0-32.0) mmol/L BUN 18 (7.0-18.0) mg/dL Creatinine 1.1 (0.8-1.3) mg/dL Est Cr Clr Drug Dosing 80.34 mL/min Estimated GFR (MDRD) > 60.0 ml/min Glucose 105 (74-106) mg/dL Calcium 9.0 (8.5-10.1) mg/dL Total Bilirubin 1.8 H (0.2-1.0) mg/dL AST 21 (15-37) IU/L ALT 25 (14-63) IU/L Alkaline Phosphatase 107 (46-116) U/L C-Reactive Protein 0.90 (0.00-0.90) mg/dL Total Protein 7.9 (6.4-8.2) g/dL Albumin 4.2 (3.4-5.0) g/dL Globulin 3.7 (2.6-4.0) g/dL Albumin/Globulin Ratio 1.1 (0.9-1.6) Meds: Medications Generic Name Dose Route Start Last Admin Trade Name Freq PRN Reason Stop Dose Admin Vancomycin HCl 1.5 gm/ Premix 300 mls @ 200 mls/hr 04/25/21 09:45 04/25/21 10:11 IV 200 mls/hr Q12H TINO Administration Discontinued Medications Generic Name Dose Route Start Last Admin Trade Name Freq PRN Reason Stop Dose Admin Vancomycin HCl 1 dose 04/25/21 08:43 Pharmacy To Dose - Vancomycin .XX 04/25/21 08:44 ONETIME ONE - Re-Assessments/Exams Free Text/Narrative Re-Assessment/Exam: 04/25/21 10:21 Slight elevation of his WBC count. Patient exam looks well. We will give patient IV antibiotics here and sent home on p.o. antibiotics. Patient also had a line drawn around the redness and if it expands patient instructed to return to the ED. 04/25/21 10:21 Departure - Departure Time of Disposition: 10:21 Disposition: Home, Self-Care 01 Condition: Good Clinical Impression: Cellulitis Qualifiers: Site of cellulitis: extremity Site of cellulitis of extremity: lower extremity Laterality: right Qualified Code(s): L03.115 - Cellulitis of right lower limb - Discharge Information *PRESCRIPTION DRUG MONITORING PROGRAM REVIEWED*: Not Applicable *COPY OF PRESCRIPTION DRUG MONITORING REPORT IN PATIENT FLOR: Not Applicable Prescriptions: Sulfamethoxazole/Trimethoprim [Bactrim Ds Tablet] 1 each PO BID 7 Days #14 tablet cephALEXin [Keflex] 500 mg PO Q6HR 7 Days #28 cap Instructions: Cellulitis, Adult, [id number] Forms: ED Department Discharge Additional Instructions: You were seen today for redness and swelling to your left lower leg. You likely have a cellulitis to the area. We will send you home with antibiotics. If the redness continues to spread up your leg please return to ED immediately otherwise continue antibiotics at home and follow-up with your primary care physician. If you have any other concerning signs or symptoms please free to return to the ED as well. The following information is given to patients seen in the emergency department who are being discharged to home. This information is to outline your options for follow-up care. We provide all patients seen in our emergency department with a follow-up referral. The need for follow-up, as well as the timing and circumstances, are variable depending upon the specifics of your emergency department visit. If you don't have a primary care physician on staff, we will provide you with a referral. We always advise you to contact your personal physician following an emergency department visit to inform them of the circumstance of the visit and for follow-up with them and/or the need for any referrals to a consulting specialist. The emergency department will also refer you to a specialist when appropriate. This referral assures that you have the opportunity for follow-up care with a specialist. All of these measure are taken in an effort to provide you with optimal care, which includes your follow-up. Under all circumstances we always encourage you to contact your private physician who remains a resource for coordinating your care. When calling for follow-up care, please make the office aware that this follow-up is from your recent emergency room visit. If for any reason you are refused follow-up, please contact the [facility] Emergency Department at and asked to speak to the emergency department charge nurse. Please follow up with your primary care physician. If you do not have a primary care physician, see below: [facility] [address] [place] [address] [phone] My [facility] [address] [place] [address] Sepsis Event Note (ED) - Evaluation Sepsis Screening Result: No Definite Risk - Focused Exam Vital Signs: Vital Signs Temp Pulse Resp BP Pulse Ox 04/25/21 09:19 99.3 F 92 18 130/70 96 04/25/21 08:17 99.1 F 107 H 18 142/81 H 98 - My Orders Last 24 Hours: My Active Orders 04/25/21 09:45 VANCOmycin 1.5 GM/300 ML 1.5 gm Premix Bag 1 bag IV Q12H 04/26/21 21:00 VANCOMYCIN TROUGH [CHEM] Stat - Assessment/Plan Last 24 Hours: My Active Orders 04/25/21 09:45 VANCOmycin 1.5 GM/300 ML 1.5 gm Premix Bag 1 bag IV Q12H 04/26/21 21:00 VANCOMYCIN TROUGH [CHEM] Stat Plan: Patient is a 56-year-old male history of hypertension hyperlipidemia presents today for left lower extremity swelling and redness. Patient likely has a cellulitis unlikely a DVT. Will obtain labs give IV antibiotics and reassess.
[2021-04-25 09:20] VITALS: PULSE 92
[2021-04-25 09:25] LABS: BLOOD UREA NITROGEN,BUN 18 mg/dL (7.0-18.0); CARBON DIOXIDE,CO2 28.9 mmol/L (21.0-32.0); CHLORIDE,CL 102 mmol/L (98-107); GLUCOSE RANDOM 105 mg/dL (74-106); POTASSIUM,K 4.6 mmol/L (3.5-5.1); SODIUM,NA 139 mmol/L (136-148)
[2021-04-25] MEDS ORDERED: VANCOmycin 1.5 GM/300 ML 1.5 GM in Premix Bag 1 BAG IV SCH (09:45)
[2021-04-25 12:25] VITALS: BP 128/70
== END 2021-04-25 12:20 | disposition home or self-care (01) ==
LOC: MW.ED 08:09
DX: L03.115 Cellulitis of right lower limb (principal); E78.00 Pure hypercholesterolemia, unspecified; I10 Essential (primary) hypertension; M10.9 Gout, unspecified; M19.90 Unspecified osteoarthritis, unspecified site; E66.9 Obesity, unspecified; Z68.32 Body mass index [BMI] 32.0-32.9, adult; Z79.899 Other long term (current) drug therapy
CPT/HCPCS: 36415; 80053; 85025; 85652; 86140; 96365; 99283; J3370

== ENCOUNTER 2021-04-26 13:51 | Inpatient (IN) | payer SELFPAY ==
--- NOTE | 2021-04-26 14:17 | EDM.PDOC ---
ED HPI GENERAL MEDICAL PROBLEM - General Chief Complaint: Skin Complaint Stated Complaint: LEG PAIN Time Seen by Provider: 04/26/21 14:00 Source of Information: Reports: Patient History Limitations: Reports: No Limitations - History of Present Illness INITIAL COMMENTS - FREE TEXT/NARRATIVE: Patient is a 56-year-old male who presents today for lower extremity redness and swelling. Patient was seen here yesterday and was diagnosed with cellulitis and given IV antibiotics and sent home with p.o. The redness started to spread up his legs. He does not have any systemic symptoms no fever chills no nausea vomiting no shortness of breath or other complaints. He also now some redness to his right lower extremity as well. - Related Data Allergies Allergy/AdvReac Type Severity Reaction Status Date / Time No Known Allergies Allergy Verified 04/26/21 14:05 Home Meds: Home Meds Allopurinol [Zyloprim] 100 mg PO DAILY 11/09/16 [History] Hydrochlorothiazide 25 mg PO DAILY 11/09/16 [History] Simvastatin [Zocor] 20 mg PO DAILY 11/09/16 [History] amLODIPine Besylate [Amlodipine Besylate] 10 mg PO DAILY 11/09/16 [History] Losartan [Cozaar] 25 mg PO DAILY 04/25/21 [History] Potassium Chloride 04/25/21 [History] Sulfamethoxazole/Trimethoprim [Bactrim Ds Tablet] 1 each PO BID 7 Days #14 tablet 04/25/21 [Rx] cephALEXin [Keflex] 500 mg PO Q6HR 7 Days #28 cap 04/25/21 [Rx] Past Medical History HEENT History: Reports: Impaired Vision, Other (See Below) Other HEENT History: wears glasses, has dentures Cardiovascular History: Reports: High Cholesterol, Hypertension Respiratory History: Reports: SOB Gastrointestinal History: Reports: Colon Polyp, Other (See Below) Other Gastrointestinal History: heartburn after surgery, tubulovillous adenoma of large intestine Genitourinary History: Reports: None 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 Musculoskeletal History: Reports: Arthritis, Fracture, Gout, Osteoarthritis Other Musculoskeletal History: 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 knee, Neurological History: Reports: Vertigo Psychiatric History: Reports: None Other Psychiatric History: fatigue Endocrine/Metabolic History: Reports: Obesity/BMI 30+ Hematologic History: Reports: Other (See Below) Other Hematologic History: hypokalemia Immunologic History: Reports: None Oncologic (Cancer) History: Reports: None Dermatologic History: Reports: Cellulitis, Other (See Below) Other Dermatologic History: contact dermatitis - Infectious Disease History Infectious Disease History: Reports: Chicken Pox - Past Surgical History Head Surgeries/Procedures: Reports: None HEENT Surgical History: Reports: None Cardiovascular Surgical History: Reports: None Respiratory Surgical History: Reports: None GI Surgical History: Reports: None Male Surgical History: Reports: None Endocrine Surgical History: Reports: None Neurological Surgical History: Reports: None Musculoskeletal Surgical History: Reports: ORIF, Other (See Below) Other Musculoskeletal Surgeries/Procedures:: surgical tx for fx left ankle, left thumb surgery with tendon repair, right total knee replacement Oncologic Surgical History: Reports: None Dermatological Surgical History: Reports: None Social & Family History - Family History Family Medical History: No Pertinent Family History - Tobacco Use Tobacco Use Status *Q: Never Tobacco User Used Tobacco, but Quit: No - Caffeine Use Caffeine Use: Reports: None Other Caffeine Use: Rarely - Recreational Drug Use Recreational Drug Use: No ED ROS GENERAL - Review of Systems Review Of Systems: See Below Constitutional: Reports: No Symptoms HEENT: Reports: No Symptoms Respiratory: Reports: No Symptoms Cardiovascular: Reports: No Symptoms Endocrine: Reports: No Symptoms GI/Abdominal: Reports: No Symptoms : Reports: No Symptoms Musculoskeletal: Reports: No Symptoms Skin: Reports: Rash Neurological: Reports: No Symptoms Psychiatric: Reports: No Symptoms Hematologic/Lymphatic: Reports: No Symptoms Immunologic: Reports: No Symptoms ED EXAM, SKIN/RASH Exam: See Below Exam Limited By: No Limitations General Appearance: Alert, WD/WN, No Apparent Distress Throat/Mouth: Normal Inspection Head: Atraumatic, Normocephalic Neck: Normal Inspection Respiratory/Chest: No Respiratory Distress, Lungs Clear, Normal Breath Sounds Cardiovascular: Normal Peripheral Pulses, Regular Rate, Rhythm GI/Abdominal: Normal Bowel Sounds, Soft, Non-Tender Extremities: Normal Range of Motion, Non-Tender. No: Normal Inspection (Admits to the left lower extremity that is spreading above the line drawn yesterday redness around the right ankle) Neurological: Alert, Oriented Course - Vital Signs Last Recorded V/S: Last Vital Signs Temp 98.1 F 04/26/21 14:02 Pulse 82 04/26/21 14:02 Resp 18 04/26/21 14:02 BP 123/60 04/26/21 14:02 Pulse Ox 96 04/26/21 14:02 - Orders/Labs/Meds Orders: Active Orders 24 hr Category Date Time Status Patient Status [ADT] Routine ADT 04/26/21 15:15 Ordered Chest 1V Frontal [CR] Stat Exams 04/26/21 15:13 Ordered CORONAVIRUS COVID-19 IAM [MOLEC] Stat Lab 04/26/21 14:32 Received CULTURE BLOOD [BC] Stat Lab 04/26/21 14:25 Received CULTURE BLOOD [BC] Stat Lab 04/26/21 14:50 Received Pharmacy to Dose - Vancomycin Med 04/26/21 14:15 Pending 1 dose .XX ASDIRECTED VANCOmycin 1.5 GM/300 ML 1.5 gm Med 04/26/21 14:00 Active Premix Bag 1 bag IV Q12H Blood Culture x2 Reflex Set [OM.PC] Stat Oth 04/26/21 14:12 Ordered Medication Orders Vancomycin HCl 1.5 gm/ Premix 300 mls @ 200 mls/hr IV Q12H TINO Last Admin: 04/26/21 14:55 Dose: 200 mls/hr Documented by: KENN Vancomycin HCl (Pharmacy To Dose - Vancomycin) 1 dose .XX ASDIRECTED [facility] Labs: Laboratory Tests 04/26/21 04/26/21 04/26/21 Range/Units 14:25 14:25 14:25 WBC 7.26 (4.0-11.0) K/uL RBC 4.51 (4.50-5.90) M/uL Hgb 13.6 (13.0-17.0) g/dL Hct 40.7 (38.0-50.0) % MCV 90.2 (80.0-98.0) fL MCH 30.2 (27.0-32.0) pg MCHC 33.4 (31.0-37.0) g/dL RDW Std Deviation 46.8 (28.0-62.0) fl RDW Coeff of Jose 14 (11.0-15.0) % Plt Count 187 (150-400) K/uL MPV 9.30 (7.40-12.00) fL Neut % (Auto) 68.6 (48.0-80.0) % Lymph % (Auto) 23.7 (16.0-40.0) % [place] % (Auto) 6.3 (0.0-15.0) % Eos % (Auto) 1.1 (0.0-7.0) % Baso % (Auto) 0.3 (0.0-1.5) % Neut # (Auto) 5.0 (1.4-5.7) K/uL Lymph # (Auto) 1.7 (0.6-2.4) K/uL [place] # (Auto) 0.5 (0.0-0.8) K/uL Eos # (Auto) 0.1 (0.0-0.7) K/uL Baso # (Auto) 0.0 (0.0-0.1) K/uL Nucleated RBC % 0.0 /100WBC Nucleated RBCs # 0 K/uL Sodium 138 (136-148) mmol/L Potassium 3.1 L (3.5-5.1) mmol/L Chloride 100 (98-107) mmol/L Carbon Dioxide 30.2 (21.0-32.0) mmol/L BUN 15 (7.0-18.0) mg/dL Creatinine 1.2 (0.8-1.3) mg/dL Est Cr Clr Drug Dosing 73.65 mL/min Estimated GFR (MDRD) > 60.0 ml/min Glucose 151 H (74-106) mg/dL Lactic Acid 1.9 (0.4-2.0) mmol/L Calcium 8.7 (8.5-10.1) mg/dL Total Bilirubin 3.5 H (0.2-1.0) mg/dL AST 14 L (15-37) IU/L ALT 21 (14-63) IU/L Alkaline Phosphatase 94 (46-116) U/L C-Reactive Protein 8.20 H (0.00-0.90) mg/dL Total Protein 7.4 (6.4-8.2) g/dL Albumin 3.5 (3.4-5.0) g/dL Globulin 3.9 (2.6-4.0) g/dL Albumin/Globulin Ratio 0.9 (0.9-1.6) Meds: Medications Generic Name Dose Route Start Last Admin Trade Name Freq PRN Reason Stop Dose Admin Vancomycin HCl 1.5 gm/ Premix 300 mls @ 200 mls/hr 04/26/21 14:00 04/26/21 14:55 IV 200 mls/hr Q12H TINO Administration Vancomycin HCl 1 dose 04/26/21 14:15 Pharmacy To Dose - Vancomycin .XX ASDIRECTED TINO - Re-Assessments/Exams Free Text/Narrative Re-Assessment/Exam: 04/26/21 15:15 White count actually improved from yesterday but patient still be admitted for the cellulitis and started on antibiotics. Departure - Departure Time of Disposition: 15:15 Disposition: Home, Self-Care 01 Condition: Good Clinical Impression: Cellulitis Qualifiers: Site of cellulitis: extremity Site of cellulitis of extremity: lower extremity Laterality: right Qualified Code(s): L03.115 - Cellulitis of right lower limb - Discharge Information *PRESCRIPTION DRUG MONITORING PROGRAM REVIEWED*: Not Applicable *COPY OF PRESCRIPTION DRUG MONITORING REPORT IN PATIENT FLOR: Not Applicable Instructions: Cellulitis, Adult Forms: ED Department Discharge Sepsis Event Note (ED) - Focused Exam Vital Signs: Vital Signs Temp Pulse Resp BP Pulse Ox 04/26/21 14:02 98.1 F 82 18 123/60 96 - My Orders Last 24 Hours: My Active Orders 04/26/21 14:00 VANCOmycin 1.5 GM/300 ML 1.5 gm Premix Bag 1 bag IV Q12H 04/26/21 14:12 Blood Culture x2 Reflex Set [OM.PC] Stat 04/26/21 14:15 Pharmacy to Dose - Vancomycin 1 dose .XX ASDIRECTED 04/26/21 14:25 CULTURE BLOOD [BC] Stat 04/26/21 14:32 CORONAVIRUS COVID-19 IAM [MOLEC] Stat 04/26/21 14:50 CULTURE BLOOD [BC] Stat 04/26/21 15:13 Chest 1V Frontal [CR] Stat 04/26/21 15:15 Patient Status [ADT] Routine - Assessment/Plan Last 24 Hours: My Active Orders 04/26/21 14:00 VANCOmycin 1.5 GM/300 ML 1.5 gm Premix Bag 1 bag IV Q12H 04/26/21 14:12 Blood Culture x2 Reflex Set [OM.PC] Stat 04/26/21 14:15 Pharmacy to Dose - Vancomycin 1 dose .XX ASDIRECTED 04/26/21 14:25 CULTURE BLOOD [BC] Stat 04/26/21 14:32 CORONAVIRUS COVID-19 IAM [MOLEC] Stat 04/26/21 14:50 CULTURE BLOOD [BC] Stat 04/26/21 15:13 Chest 1V Frontal [CR] Stat 04/26/21 15:15 Patient Status [ADT] Routine Plan: Patient is a 56-year-old male who presents today for worsening redness and swelling to his lower extremities. Patient will likely need to be admitted for IV antibiotics for cellulitis. Will redraw labs to get baseline.
[2021-04-26] MEDS: VANCOmycin 1.5 GM/300 ML 1.5 GM in Premix Bag 1 BAG IV SCH (14:55)
[2021-04-26 15:00] LABS: BLOOD UREA NITROGEN,BUN 15 mg/dL (7.0-18.0); CARBON DIOXIDE,CO2 30.2 mmol/L (21.0-32.0); CHLORIDE,CL 100 mmol/L (98-107); GLUCOSE RANDOM 151 mg/dL (74-106); POTASSIUM,K 3.1 mmol/L (3.5-5.1); SODIUM,NA 138 mmol/L (136-148)
--- NOTE | 2021-04-26 16:26 | PCM.HP.2 ---
H&P History of Present Illness - General Date of Service: 04/26/21 Admit Problem/Dx: Admission Diagnosis/Problem Admission Diagnosis/Problem Cellulitis - History of Present Illness Initial Comments - Free Text/Narative: 56 yo male with pmh of hypertension who presents to the ED with complaint of rash on his legs. The rash on his left leg started three days ago. He was seen yesterday in the ER and given vancomycin and discharged on Keflex and bactrim. The rash was mid calf and is know advance to just below the knee. He also reports similar rash that has developed on dorsal right ankle. He denies any fevers, chills or pain in the legs. His left foot is swollen compared to his right. He has had leftfoot surgery with plates in the past. Patient reports he gets rash like this multiple times in the past but never this severe. He follows Dr. Bah, but he has never prescribed antibiotics. - Related Data Allergies/Adverse Reactions: Allergies Allergy/AdvReac Type Severity Reaction Status Date / Time No Known Allergies Allergy Verified 04/26/21 15:44 Home Medications: Home Meds Allopurinol [Zyloprim] 100 mg PO DAILY 11/09/16 [History] Hydrochlorothiazide 25 mg PO DAILY 11/09/16 [History] Simvastatin [Zocor] 20 mg PO BEDTIME 11/09/16 [History] amLODIPine Besylate [Amlodipine Besylate] 10 mg PO DAILY 11/09/16 [History] Losartan [Cozaar] 25 mg PO DAILY 04/25/21 [History] Potassium Chloride 04/25/21 [History] Sulfamethoxazole/Trimethoprim [Bactrim Ds Tablet] 1 each PO BID 7 Days #14 tablet 04/25/21 [Rx] cephALEXin [Keflex] 500 mg PO Q6HR 7 Days #28 cap 04/25/21 [Rx] Past Medical History HEENT History: Reports: Impaired Vision, Other (See Below) Other HEENT History: wears glasses, has dentures Cardiovascular History: Reports: High Cholesterol, Hypertension Respiratory History: Reports: SOB Gastrointestinal History: Reports: Colon Polyp, Other (See Below) Other Gastrointestinal History: heartburn after surgery, tubulovillous adenoma of large intestine Genitourinary History: Reports: None 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: 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 Musculoskeletal History: Reports: Arthritis, Fracture, Gout, Osteoarthritis Other Musculoskeletal History: 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 knee, Neurological History: Reports: Vertigo Psychiatric History: Reports: None Other Psychiatric History: fatigue Endocrine/Metabolic History: Reports: Obesity/BMI 30+ Hematologic History: Reports: Other (See Below) Other Hematologic History: hypokalemia Immunologic History: Reports: None Oncologic (Cancer) History: Reports: None Dermatologic History: Reports: Cellulitis, Other (See Below) Other Dermatologic History: contact dermatitis - Infectious Disease History Infectious Disease History: Reports: Chicken Pox, Mumps - Past Surgical History Head Surgeries/Procedures: Reports: None HEENT Surgical History: Reports: None Cardiovascular Surgical History: Reports: None Respiratory Surgical History: Reports: None GI Surgical History: Reports: None Male Surgical History: Reports: None Endocrine Surgical History: Reports: None Neurological Surgical History: Reports: None Musculoskeletal Surgical History: Reports: ORIF, Other (See Below) Other Musculoskeletal Surgeries/Procedures:: surgical tx for fx left ankle, left thumb surgery with tendon repair, right total knee replacement Oncologic Surgical History: Reports: None Dermatological Surgical History: Reports: None Social & Family History - Family History Family Medical History: No Pertinent Family History - Tobacco Use Tobacco Use Status *Q: Former Tobacco User Years of Tobacco use: 38 Used Tobacco, but Quit: Yes Month/Year Tobacco Last Used: 4 Second Hand Smoke Exposure: No - Caffeine Use Caffeine Use: Reports: Coffee Other Caffeine Use: Rarely - Recreational Drug Use Recreational Drug Use: No H&P Review of Systems - Review of Systems: Review Of Systems: Comprehensive ROS is negative, except as noted in HPI. Exam - Exam Exam: See Below - Vital Signs Vital Signs: Last Vital Signs Temp 37.1 C 04/26/21 16:00 Pulse 84 04/26/21 16:00 Resp 16 04/26/21 16:00 BP 133/70 04/26/21 16:00 Pulse Ox 94 L 04/26/21 16:00 Weight: 111.266 kg - Exam General: Alert, Oriented HEENT: Mucosa Moist & [place] Lungs: Clear to Auscultation, Normal Respiratory Effort Cardiovascular: Regular Rate, Regular Rhythm GI/Abdominal Exam: Normal Bowel Sounds, Soft, Non-Tender Extremities: Non-Tender, Pedal Edema (+1 pedal edema of the left foot, patchy rash that extends to below the left knee, no knee or ankle effusion noted) - Patient Data Lab Results Last 24 hrs: Laboratory Results - last 24 hr 04/26/21 04/26/21 04/26/21 Range/Units 14:25 14:25 14:25 WBC 7.26 (4.0-11.0) K/uL RBC 4.51 (4.50-5.90) M/uL Hgb 13.6 (13.0-17.0) g/dL Hct 40.7 (38.0-50.0) % MCV 90.2 (80.0-98.0) fL MCH 30.2 (27.0-32.0) pg MCHC 33.4 (31.0-37.0) g/dL RDW Std Deviation 46.8 (28.0-62.0) fl RDW Coeff of Jose 14 (11.0-15.0) % Plt Count 187 (150-400) K/uL MPV 9.30 (7.40-12.00) fL Neut % (Auto) 68.6 (48.0-80.0) % Lymph % (Auto) 23.7 (16.0-40.0) % [place] % (Auto) 6.3 (0.0-15.0) % Eos % (Auto) 1.1 (0.0-7.0) % Baso % (Auto) 0.3 (0.0-1.5) % Neut # (Auto) 5.0 (1.4-5.7) K/uL Lymph # (Auto) 1.7 (0.6-2.4) K/uL [place] # (Auto) 0.5 (0.0-0.8) K/uL Eos # (Auto) 0.1 (0.0-0.7) K/uL Baso # (Auto) 0.0 (0.0-0.1) K/uL Nucleated RBC % 0.0 /100WBC Nucleated RBCs # 0 K/uL Sodium 138 (136-148) mmol/L Potassium 3.1 L (3.5-5.1) mmol/L Chloride 100 (98-107) mmol/L Carbon Dioxide 30.2 (21.0-32.0) mmol/L BUN 15 (7.0-18.0) mg/dL Creatinine 1.2 (0.8-1.3) mg/dL Est Cr Clr Drug Dosing 73.65 mL/min Estimated GFR (MDRD) > 60.0 ml/min Glucose 151 H (74-106) mg/dL Lactic Acid 1.9 (0.4-2.0) mmol/L Calcium 8.7 (8.5-10.1) mg/dL Total Bilirubin 3.5 H (0.2-1.0) mg/dL AST 14 L (15-37) IU/L ALT 21 (14-63) IU/L Alkaline Phosphatase 94 (46-116) U/L C-Reactive Protein 8.20 H (0.00-0.90) mg/dL Total Protein 7.4 (6.4-8.2) g/dL Albumin 3.5 (3.4-5.0) g/dL Globulin 3.9 (2.6-4.0) g/dL Albumin/Globulin Ratio 0.9 (0.9-1.6) SARS-CoV-2 RNA (IAM) (NEGATIVE) 04/26/21 Range/Units 14:32 WBC (4.0-11.0) K/uL RBC (4.50-5.90) M/uL Hgb (13.0-17.0) g/dL Hct (38.0-50.0) % MCV (80.0-98.0) fL MCH (27.0-32.0) pg MCHC (31.0-37.0) g/dL RDW Std Deviation (28.0-62.0) fl RDW Coeff of Jose (11.0-15.0) % Plt Count (150-400) K/uL MPV (7.40-12.00) fL Neut % (Auto) (48.0-80.0) % Lymph % (Auto) (16.0-40.0) % [place] % (Auto) (0.0-15.0) % Eos % (Auto) (0.0-7.0) % Baso % (Auto) (0.0-1.5) % Neut # (Auto) (1.4-5.7) K/uL Lymph # (Auto) (0.6-2.4) K/uL [place] # (Auto) (0.0-0.8) K/uL Eos # (Auto) (0.0-0.7) K/uL Baso # (Auto) (0.0-0.1) K/uL Nucleated RBC % /100WBC Nucleated RBCs # K/uL Sodium (136-148) mmol/L Potassium (3.5-5.1) mmol/L Chloride (98-107) mmol/L Carbon Dioxide (21.0-32.0) mmol/L BUN (7.0-18.0) mg/dL Creatinine (0.8-1.3) mg/dL Est Cr Clr Drug Dosing mL/min Estimated GFR (MDRD) ml/min Glucose (74-106) mg/dL Lactic Acid (0.4-2.0) mmol/L Calcium (8.5-10.1) mg/dL Total Bilirubin (0.2-1.0) mg/dL AST (15-37) IU/L ALT (14-63) IU/L Alkaline Phosphatase (46-116) U/L C-Reactive Protein (0.00-0.90) mg/dL Total Protein (6.4-8.2) g/dL Albumin (3.4-5.0) g/dL Globulin (2.6-4.0) g/dL Albumin/Globulin Ratio (0.9-1.6) SARS-CoV-2 RNA (IAM) NEGATIVE (NEGATIVE) Result Diagrams: 04/26/21 14:25 04/26/21 14:25 Sepsis Event Note - Focused Exam Vital Signs: Vital Signs Temp Pulse Resp BP Pulse Ox 04/26/21 16:00 37.1 C 84 16 133/70 94 L 04/26/21 14:02 36.7 C 82 18 123/60 96 - Problem List (1) Cellulitis SNOMED Code(s): 352494027 ICD Code: L03.90 - CELLULITIS, UNSPECIFIED Status: Acute Current Visit: Yes Qualifiers: Site of cellulitis: extremity Site of cellulitis of extremity: lower extremity Laterality: right Qualified Code(s): L03.115 - Cellulitis of right lower limb Problem List Initiated/Reviewed/Updated: Yes Orders Last 24hrs: Active Orders 24 hr Category Date Time Status Patient Status [ADT] Routine ADT 04/26/21 15:15 Active Abdomen Ltd [US] Routine Exams 04/26/21 16:19 Ordered Chest 1V Frontal [CR] Stat Exams 04/26/21 15:13 Ordered Venous Doppler Lwr Ext Bi [US] Routine Exams 04/26/21 16:19 Ordered CULTURE BLOOD [BC] Stat Lab 04/26/21 14:25 Received CULTURE BLOOD [BC] Stat Lab 04/26/21 14:50 Received VANCOMYCIN TROUGH [CHEM] Timed Lab 04/28/21 13:30 Ordered Losartan Med 04/27/21 09:00 Ordered 25 mg PO DAILY Pharmacy to Dose - Vancomycin Med 04/26/21 14:15 Pending 1 dose .XX ASDIRECTED Simvastatin [Zocor] Med 04/26/21 21:00 Ordered 20 mg PO BEDTIME VANCOmycin 1.5 GM/300 ML 1.5 gm Med 04/26/21 14:00 Active Premix Bag 1 bag IV Q12H cefTRIAXone [Rocephin in Dextrose,Iso-Osm 1 GM/50 ML] 1 Med 04/26/21 16:30 Ordered gm Premix Bag 1 bag IV Q24H Blood Culture x2 Reflex Set [OM.PC] Stat Oth 04/26/21 14:12 Ordered Medication Orders Vancomycin HCl 1.5 gm/ Premix 300 mls @ 200 mls/hr IV Q12H TINO Last Admin: 04/26/21 14:55 Dose: 200 mls/hr Documented by: SEWATIF Ceftriaxone Sodium/Dextrose 1 (gm/ Premix) 50 mls @ 100 mls/hr IV Q24H TINO Non-Formulary Medication (Losartan) 25 mg PO DAILY TINO Simvastatin (Simvastatin 20 Mg Tab) 20 mg PO BEDTIME TINO Vancomycin HCl (Pharmacy To Dose - Vancomycin) 1 dose .XX ASDIRECTED [facility] Assessment/Plan Comment:: 56 yo male admitted for rash of the lower legs. We will treat for cellulitis with Vancomycin and Rocephin.
--- NOTE | 2021-04-26 16:27 | CR ---
Indication: Cellulitis Technique: Chest 1 view Comparison: March 21, 2021 Findings/Impression: Normal cardiomediastinal silhouette. Patchy atelectasis or scarring at the right base unchanged compared to exam. No effusion or pneumothorax. No acute osseous abnormality. Dictated by Malliak Walton MD @ 04/26/2021 4:26:30 PM (Electronically Signed)
[2021-04-26] MEDS: cefTRIAXone 1 GM in Premix Bag 1 BAG IV SCH (17:18)
[2021-04-26] MEDS: Simvastatin 20 MG Tab PO SCH (20:24)
[2021-04-27] MEDS: VANCOmycin 1.5 GM/300 ML 1.5 GM in Premix Bag 1 BAG IV SCH ×2 (01:13→13:25)
[2021-04-27] MEDS: Losartan 50 MG Tab PO SCH (08:48)
--- NOTE | 2021-04-27 09:29 | PCM.PN ---
- General Info Date of Service: 04/27/21 Admission Dx/Problem (Free Text): Admission Diagnosis/Problem Admission Diagnosis/Problem Cellulitis Subjective Update: 56-year-old male admitted for bilateral lower extremity cellulitis. Patient states pain and erythema have improved compared to yesterday. Left lower extremity is feed mill tender to touch. Patient denies fever or chills. Patient denies calf pain. - Review of Systems General: Denies: Fever, Chills HEENT: Denies: Headaches, Sore Throat Pulmonary: Denies: Shortness of Breath, Pleuritic Chest Pain, Cough Cardiovascular: Denies: Chest Pain, Palpitations Gastrointestinal: Denies: Abdominal Pain, Constipation, Diarrhea, Melena, Nausea, Vomiting Genitourinary: Denies: Dysuria, Burning Musculoskeletal: Reports: Leg Pain Neurological: Denies: Confusion Psychiatric: Denies: Confusion - Patient Data Vitals - Most Recent: Last Vital Signs Temp 98.1 F 04/27/21 07:35 Pulse 65 04/27/21 07:35 Resp 16 04/27/21 07:35 BP 124/69 04/27/21 08:48 Pulse Ox 95 04/27/21 07:35 Weight - Most Recent: 245 lb 4.8 oz I&O - Last 24 Hours: Intake & Output 04/26/21 04/27/21 04/27/21 22:59 06:59 14:59 Intake Total 500 600 Output Total 600 800 Balance -100 -200 Lab Results Last 24 Hours: Laboratory Results - last 24 hr 04/26/21 04/26/21 04/26/21 Range/Units 14:25 14:25 14:25 WBC 7.26 (4.0-11.0) K/uL RBC 4.51 (4.50-5.90) M/uL Hgb 13.6 (13.0-17.0) g/dL Hct 40.7 (38.0-50.0) % MCV 90.2 (80.0-98.0) fL MCH 30.2 (27.0-32.0) pg MCHC 33.4 (31.0-37.0) g/dL RDW Std Deviation 46.8 (28.0-62.0) fl RDW Coeff of Jose 14 (11.0-15.0) % Plt Count 187 (150-400) K/uL MPV 9.30 (7.40-12.00) fL Neut % (Auto) 68.6 (48.0-80.0) % Lymph % (Auto) 23.7 (16.0-40.0) % [place] % (Auto) 6.3 (0.0-15.0) % Eos % (Auto) 1.1 (0.0-7.0) % Baso % (Auto) 0.3 (0.0-1.5) % Neut # (Auto) 5.0 (1.4-5.7) K/uL Lymph # (Auto) 1.7 (0.6-2.4) K/uL [place] # (Auto) 0.5 (0.0-0.8) K/uL Eos # (Auto) 0.1 (0.0-0.7) K/uL Baso # (Auto) 0.0 (0.0-0.1) K/uL Nucleated RBC % 0.0 /100WBC Nucleated RBCs # 0 K/uL Sodium 138 (136-148) mmol/L Potassium 3.1 L (3.5-5.1) mmol/L Chloride 100 (98-107) mmol/L Carbon Dioxide 30.2 (21.0-32.0) mmol/L BUN 15 (7.0-18.0) mg/dL Creatinine 1.2 (0.8-1.3) mg/dL Est Cr Clr Drug Dosing 73.65 mL/min Estimated GFR (MDRD) > 60.0 ml/min Glucose 151 H (74-106) mg/dL Lactic Acid 1.9 (0.4-2.0) mmol/L Calcium 8.7 (8.5-10.1) mg/dL Total Bilirubin 3.5 H (0.2-1.0) mg/dL AST 14 L (15-37) IU/L ALT 21 (14-63) IU/L Alkaline Phosphatase 94 (46-116) U/L C-Reactive Protein 8.20 H (0.00-0.90) mg/dL Total Protein 7.4 (6.4-8.2) g/dL Albumin 3.5 (3.4-5.0) g/dL Globulin 3.9 (2.6-4.0) g/dL Albumin/Globulin Ratio 0.9 (0.9-1.6) SARS-CoV-2 RNA (IAM) (NEGATIVE) 04/26/21 Range/Units 14:32 WBC (4.0-11.0) K/uL RBC (4.50-5.90) M/uL Hgb (13.0-17.0) g/dL Hct (38.0-50.0) % MCV (80.0-98.0) fL MCH (27.0-32.0) pg MCHC (31.0-37.0) g/dL RDW Std Deviation (28.0-62.0) fl RDW Coeff of Jose (11.0-15.0) % Plt Count (150-400) K/uL MPV (7.40-12.00) fL Neut % (Auto) (48.0-80.0) % Lymph % (Auto) (16.0-40.0) % [place] % (Auto) (0.0-15.0) % Eos % (Auto) (0.0-7.0) % Baso % (Auto) (0.0-1.5) % Neut # (Auto) (1.4-5.7) K/uL Lymph # (Auto) (0.6-2.4) K/uL [place] # (Auto) (0.0-0.8) K/uL Eos # (Auto) (0.0-0.7) K/uL Baso # (Auto) (0.0-0.1) K/uL Nucleated RBC % /100WBC Nucleated RBCs # K/uL Sodium (136-148) mmol/L Potassium (3.5-5.1) mmol/L Chloride (98-107) mmol/L Carbon Dioxide (21.0-32.0) mmol/L BUN (7.0-18.0) mg/dL Creatinine (0.8-1.3) mg/dL Est Cr Clr Drug Dosing mL/min Estimated GFR (MDRD) ml/min Glucose (74-106) mg/dL Lactic Acid (0.4-2.0) mmol/L Calcium (8.5-10.1) mg/dL Total Bilirubin (0.2-1.0) mg/dL AST (15-37) IU/L ALT (14-63) IU/L Alkaline Phosphatase (46-116) U/L C-Reactive Protein (0.00-0.90) mg/dL Total Protein (6.4-8.2) g/dL Albumin (3.4-5.0) g/dL Globulin (2.6-4.0) g/dL Albumin/Globulin Ratio (0.9-1.6) SARS-CoV-2 RNA (IAM) NEGATIVE (NEGATIVE) Med Orders - Current: Current Medications Vancomycin HCl 1.5 gm/ Premix 300 mls @ 200 mls/hr IV Q12H TINO Last Admin: 04/27/21 01:13 Dose: 200 mls/hr Documented by: Ceftriaxone Sodium/Dextrose 1 (gm/ Premix) 50 mls @ 100 mls/hr IV Q24H TINO Last Admin: 04/26/21 17:18 Dose: 100 mls/hr Documented by: Losartan Potassium (Losartan 50 Mg Tab) 25 mg PO DAILY TINO Last Admin: 04/27/21 08:48 Dose: 25 mg Documented by: Simvastatin (Simvastatin 20 Mg Tab) 20 mg PO BEDTIME [facility] Last Admin: 04/26/21 20:24 Dose: 20 mg Documented by: Vancomycin HCl (Pharmacy To Dose - Vancomycin) 1 dose .XX ASDIRECTED TINO - Exam General: Alert, Oriented HEENT: Pupils Equal, Pupils Reactive Neck: Supple, Trachea Midline Lungs: Clear to Auscultation, Normal Respiratory Effort Cardiovascular: Regular Rate, Regular Rhythm GI/Abdominal Exam: Normal Bowel Sounds, Soft, Non-Tender Extremities: Pedal Edema, Leg Pain, Limited Range of Motion, Redness. No: Joint Swelling, Lucio's Sign, Increased Warmth Peripheral Pulses: 2+: Dorsalis Pedis (L), Dorsalis Pedis (R) Neurological: No New Focal Deficit - Patient Data Lab Results Last 24 hrs: Laboratory Results - last 24 hr 04/26/21 04/26/21 04/26/21 Range/Units 14:25 14:25 14:25 WBC 7.26 (4.0-11.0) K/uL RBC 4.51 (4.50-5.90) M/uL Hgb 13.6 (13.0-17.0) g/dL Hct 40.7 (38.0-50.0) % MCV 90.2 (80.0-98.0) fL MCH 30.2 (27.0-32.0) pg MCHC 33.4 (31.0-37.0) g/dL RDW Std Deviation 46.8 (28.0-62.0) fl RDW Coeff of Jose 14 (11.0-15.0) % Plt Count 187 (150-400) K/uL MPV 9.30 (7.40-12.00) fL Neut % (Auto) 68.6 (48.0-80.0) % Lymph % (Auto) 23.7 (16.0-40.0) % [place] % (Auto) 6.3 (0.0-15.0) % Eos % (Auto) 1.1 (0.0-7.0) % Baso % (Auto) 0.3 (0.0-1.5) % Neut # (Auto) 5.0 (1.4-5.7) K/uL Lymph # (Auto) 1.7 (0.6-2.4) K/uL [place] # (Auto) 0.5 (0.0-0.8) K/uL Eos # (Auto) 0.1 (0.0-0.7) K/uL Baso # (Auto) 0.0 (0.0-0.1) K/uL Nucleated RBC % 0.0 /100WBC Nucleated RBCs # 0 K/uL Sodium 138 (136-148) mmol/L Potassium 3.1 L (3.5-5.1) mmol/L Chloride 100 (98-107) mmol/L Carbon Dioxide 30.2 (21.0-32.0) mmol/L BUN 15 (7.0-18.0) mg/dL Creatinine 1.2 (0.8-1.3) mg/dL Est Cr Clr Drug Dosing 73.65 mL/min Estimated GFR (MDRD) > 60.0 ml/min Glucose 151 H (74-106) mg/dL Lactic Acid 1.9 (0.4-2.0) mmol/L Calcium 8.7 (8.5-10.1) mg/dL Total Bilirubin 3.5 H (0.2-1.0) mg/dL AST 14 L (15-37) IU/L ALT 21 (14-63) IU/L Alkaline Phosphatase 94 (46-116) U/L C-Reactive Protein 8.20 H (0.00-0.90) mg/dL Total Protein 7.4 (6.4-8.2) g/dL Albumin 3.5 (3.4-5.0) g/dL Globulin 3.9 (2.6-4.0) g/dL Albumin/Globulin Ratio 0.9 (0.9-1.6) SARS-CoV-2 RNA (IAM) (NEGATIVE) 04/26/21 Range/Units 14:32 WBC (4.0-11.0) K/uL RBC (4.50-5.90) M/uL Hgb (13.0-17.0) g/dL Hct (38.0-50.0) % MCV (80.0-98.0) fL MCH (27.0-32.0) pg MCHC (31.0-37.0) g/dL RDW Std Deviation (28.0-62.0) fl RDW Coeff of Jose (11.0-15.0) % Plt Count (150-400) K/uL MPV (7.40-12.00) fL Neut % (Auto) (48.0-80.0) % Lymph % (Auto) (16.0-40.0) % [place] % (Auto) (0.0-15.0) % Eos % (Auto) (0.0-7.0) % Baso % (Auto) (0.0-1.5) % Neut # (Auto) (1.4-5.7) K/uL Lymph # (Auto) (0.6-2.4) K/uL [place] # (Auto) (0.0-0.8) K/uL Eos # (Auto) (0.0-0.7) K/uL Baso # (Auto) (0.0-0.1) K/uL Nucleated RBC % /100WBC Nucleated RBCs # K/uL Sodium (136-148) mmol/L Potassium (3.5-5.1) mmol/L Chloride (98-107) mmol/L Carbon Dioxide (21.0-32.0) mmol/L BUN (7.0-18.0) mg/dL Creatinine (0.8-1.3) mg/dL Est Cr Clr Drug Dosing mL/min Estimated GFR (MDRD) ml/min Glucose (74-106) mg/dL Lactic Acid (0.4-2.0) mmol/L Calcium (8.5-10.1) mg/dL Total Bilirubin (0.2-1.0) mg/dL AST (15-37) IU/L ALT (14-63) IU/L Alkaline Phosphatase (46-116) U/L C-Reactive Protein (0.00-0.90) mg/dL Total Protein (6.4-8.2) g/dL Albumin (3.4-5.0) g/dL Globulin (2.6-4.0) g/dL Albumin/Globulin Ratio (0.9-1.6) SARS-CoV-2 RNA (IAM) NEGATIVE (NEGATIVE) Result Diagrams: 04/26/21 14:25 04/26/21 14:25 Sepsis Event Note - Evaluation Sepsis Screening Result: No Definite Risk - Focused Exam Vital Signs: Vital Signs Temp Pulse Resp BP BP Pulse Ox 04/27/21 08:48 124/69 04/27/21 07:35 98.1 F 65 16 124/69 95 04/27/21 04:00 98.3 F 72 16 124/68 94 L 04/27/21 00:00 98.6 F 73 16 121/61 93 L - Problem List Review Problem List Initiated/Reviewed/Updated: Yes - Plan Plan:: 56-year-old male admitted for bilateral lower extremity cellulitis. Patient's erythema and swelling is improving on vancomycin and ceftriaxone. Continue current regimen.
[2021-04-27 10:47] LABS: BLOOD UREA NITROGEN,BUN 16 mg/dL (7.0-18.0); CARBON DIOXIDE,CO2 33.3 mmol/L (21.0-32.0); CHLORIDE,CL 102 mmol/L (98-107); GLUCOSE RANDOM 119 mg/dL (74-106); POTASSIUM,K 4.1 mmol/L (3.5-5.1); SODIUM,NA 141 mmol/L (136-148)
[2021-04-27] MEDS: cefTRIAXone 1 GM in Premix Bag 1 BAG IV SCH (16:54)
[2021-04-27] MEDS: Simvastatin 20 MG Tab PO SCH (20:27)
[2021-04-28] MEDS: VANCOmycin 1.5 GM/300 ML 1.5 GM in Premix Bag 1 BAG IV SCH (02:04)
[2021-04-28 07:42] LABS: BLOOD UREA NITROGEN,BUN 13 mg/dL (7.0-18.0); CARBON DIOXIDE,CO2 28.9 mmol/L (21.0-32.0); CHLORIDE,CL 106 mmol/L (98-107); GLUCOSE RANDOM 100 mg/dL (74-106); POTASSIUM,K 4.2 mmol/L (3.5-5.1); SODIUM,NA 142 mmol/L (136-148)
--- NOTE | 2021-04-28 08:51 | US ---
INDICATION: Leg pain and swelling. TECHNIQUE: Ultrasound venous duplex lower extremity bilateral. Compression venous exam was performed using lópez-scale, color Doppler, and spectral Doppler imaging. COMPARISON: Duplex Doppler ultrasound October 28, 2020 FINDINGS: Sonographic imaging demonstrates the common femoral, deep femoral, superficial femoral, popliteal, posterior tibial and greater saphenous veins to be fully compressible with normal color Doppler blood flow in both lower extremities. There is mild superficial soft tissue swelling and prominent reactive lymph nodes within the bilateral groin soft tissues. IMPRESSION: Normal bilateral lower extremity venous ultrasound, no sign of deep venous thrombosis. Mild superficial soft tissue swelling and reactive lymph nodes appreciated within the bilateral groin soft tissues. Dictated by Coleman Sierra MD @ 04/28/2021 8:50:18 AM (Electronically Signed)
--- NOTE | 2021-04-28 08:56 | US ---
Indication: Right upper quadrant abdomen pain TECHNIQUE: Ultrasound abdomen limited. Sonographic images of the right upper quadrant were obtained using lópez-scale and color Doppler images. Comparison: None FINDINGS: Liver: Normal in size and echotexture. No masses. No intrahepatic biliary dilatation. Gallbladder: No stones or sludge. Normal wall thickness. No pericholecystic fluid. Common bile duct: 3 mm. Pancreas: Normal. Right kidney: The right kidney is normal in size, contour and echogenicity. Impression: Unremarkable right upper quadrant ultrasound. Dictated by Coleman Sierra MD @ 04/28/2021 8:53:53 AM (Electronically Signed)
[2021-04-28 09:07] VITALS: BP 132/63; PULSE 65
[2021-04-28] MEDS: Losartan 50 MG Tab PO SCH (09:10)
--- NOTE | 2021-04-28 10:50 | PCM.DCSUM1 ---
Discharge Summary - Hospital Course Free Text/Narrative:: 56-year-old male with a history of hypertension was admitted to the hospital for bilateral lower extremity cellulitis. Patient did attempt 1 day of outpatient Keflex but his infection worsened so he returned to the ER and was admitted. In the hospital, patient was treated with vancomycin and ceftriaxone. After 24 hours the patient's lower extremities began to improve with improvement in erythema and swelling. Patient's vital signs were stable throughout the admission. Patient CBC and BMP were unremarkable. Patient did complain of chronic lower extremity swelling, and it was advised that he hold his amlodipine. Patient will discuss this with his primary care. Patient is being discharged on doxycycline and clindamycin for 7 days. After he completes therapy with antibiotics, it was recommended that he begin to wear compression stockings. - Discharge Data Discharge Date: 04/28/21 Discharge Disposition: Home, Self-Care 01 Condition: Stable - Referral to Home Health Primary Care Physician: PCP None - Patient Instructions Diet: Low Sodium Activity: As Tolerated Notify Provider of: Fever, Increased Pain, Swelling and Redness Other/Special Instructions: You were admitted for an infection of the skin of your legs. You are being discharged on 7 days of antibiotics to be taken at home. Doxycycline and clindamycin. We recommend that you discontinue amlodipine as this may be the cause for the swelling in your legs. You can discuss this with your primary care physician. After you have completed your antibiotics, we recommend you wear compression stockings to help with the swelling. If you experience worsening redness, swelling, pain in your lower legs or fever, chills, please seek medical attention immediately. - Discharge Plan *PRESCRIPTION DRUG MONITORING PROGRAM REVIEWED*: Not Applicable *COPY OF PRESCRIPTION DRUG MONITORING REPORT IN PATIENT FLOR: Not Applicable Prescriptions/Med Rec: Clindamycin HCl 300 mg PO Q8HR 7 Days #21 capsule Doxycycline [Vibra-Tabs] 100 mg PO Q12HR 7 Days #14 tab Home Medications: Home Meds Allopurinol [Zyloprim] 100 mg PO DAILY 11/09/16 [History] Hydrochlorothiazide 25 mg PO DAILY 11/09/16 [History] Simvastatin [Zocor] 20 mg PO BEDTIME 11/09/16 [History] amLODIPine Besylate [Amlodipine Besylate] 10 mg PO DAILY 11/09/16 [History] Losartan [Cozaar] 25 mg PO DAILY 04/25/21 [History] Potassium Chloride 04/25/21 [History] Clindamycin HCl 300 mg PO Q8HR 7 Days #21 capsule 04/28/21 [Rx] Doxycycline [Vibra-Tabs] 100 mg PO Q12HR 7 Days #14 tab 04/28/21 [Rx] Patient Handouts: Cellulitis, Adult, Uoor-dt-Cocn Referrals: Flip Stroud MD [Physician] - 05/05/21 1:30 pm - Discharge Summary/Plan Comment DC Time >30 min.: Yes Total # of Minutes for Discharge Time: 45 - General Info Admission Dx/Problem (Free Text: Admission Diagnosis/Problem Admission Diagnosis/Problem Cellulitis - Review of Systems General: Denies: Fever, Chills HEENT: Denies: Headaches Pulmonary: Denies: Shortness of Breath, Cough Cardiovascular: Denies: Chest Pain, Palpitations Gastrointestinal: Denies: Abdominal Pain, Constipation, Nausea, Vomiting Genitourinary: Denies: Dysuria Musculoskeletal: Denies: Leg Pain Skin: Denies: Dryness, Rash Neurological: Denies: Confusion, Dizziness, Headache, Weakness - Patient Data Vitals - Most Recent: Last Vital Signs Temp 98 F 04/28/21 09:06 Pulse 65 04/28/21 09:06 Resp 17 04/28/21 09:06 BP 132/63 04/28/21 09:10 Pulse Ox 96 04/28/21 09:06 Weight - Most Recent: 245 lb 4.8 oz I&O - Last 24 hours: Intake & Output 04/27/21 04/28/21 04/28/21 22:59 06:59 14:59 Intake Total 1200 500 Output Total 600 600 Balance 600 -100 Lab Results - Last 24 hrs: Laboratory Results - last 24 hr 04/27/21 04/28/21 04/28/21 Range/Units 10:11 05:40 05:40 WBC 5.31 (4.0-11.0) K/uL RBC 4.37 L (4.50-5.90) M/uL Hgb 13.0 (13.0-17.0) g/dL Hct 40.1 (38.0-50.0) % MCV 91.8 (80.0-98.0) fL MCH 29.7 (27.0-32.0) pg MCHC 32.4 (31.0-37.0) g/dL RDW Std Deviation 47.7 (28.0-62.0) fl RDW Coeff of Jose 14 (11.0-15.0) % Plt Count 195 (150-400) K/uL MPV 10.00 (7.40-12.00) fL Neut % (Auto) 55.5 (48.0-80.0) % Lymph % (Auto) 31.1 (16.0-40.0) % [place] % (Auto) 9.6 (0.0-15.0) % Eos % (Auto) 3.6 (0.0-7.0) % Baso % (Auto) 0.2 (0.0-1.5) % Neut # (Auto) 3.0 (1.4-5.7) K/uL Lymph # (Auto) 1.7 (0.6-2.4) K/uL [place] # (Auto) 0.5 (0.0-0.8) K/uL Eos # (Auto) 0.2 (0.0-0.7) K/uL Baso # (Auto) 0.0 (0.0-0.1) K/uL Nucleated RBC % 0.0 /100WBC Nucleated RBCs # 0 K/uL Sodium 141 142 (136-148) mmol/L Potassium 4.1 4.2 (3.5-5.1) mmol/L Chloride 102 106 (98-107) mmol/L Carbon Dioxide 33.3 H 28.9 (21.0-32.0) mmol/L BUN 16 13 (7.0-18.0) mg/dL Creatinine 1.0 1.0 (0.8-1.3) mg/dL Est Cr Clr Drug Dosing 88.38 88.38 mL/min Estimated GFR (MDRD) > 60.0 > 60.0 ml/min Glucose 119 H 100 (74-106) mg/dL Calcium 8.4 L 8.8 (8.5-10.1) mg/dL Total Bilirubin 2.5 H 1.5 H (0.2-1.0) mg/dL AST 14 L 13 L (15-37) IU/L ALT 17 24 (14-63) IU/L Alkaline Phosphatase 83 81 (46-116) U/L Total Protein 6.4 6.9 (6.4-8.2) g/dL Albumin 3.2 L 3.1 L (3.4-5.0) g/dL Globulin 3.2 3.8 (2.6-4.0) g/dL Albumin/Globulin Ratio 1.0 0.8 L (0.9-1.6) EDDIE Results - Last 24 hrs: Microbiology 04/26/21 14:50 Aerobic Blood Culture - Preliminary Blood - Venous - Lab Draw NO GROWTH AFTER 1 DAY Anaerobic Blood Culture - Preliminary NO GROWTH AFTER 1 DAY 04/26/21 14:25 Aerobic Blood Culture - Preliminary Blood - Venous NO GROWTH AFTER 1 DAY Anaerobic Blood Culture - Preliminary NO GROWTH AFTER 1 DAY Med Orders - Current: Current Medications Vancomycin HCl 1.5 gm/ Premix 300 mls @ 200 mls/hr IV Q12H [facility] Last Admin: 04/28/21 02:04 Dose: 200 mls/hr Documented by: Ceftriaxone Sodium/Dextrose 1 (gm/ Premix) 50 mls @ 100 mls/hr IV Q24H [facility] Last Admin: 04/27/21 16:54 Dose: 100 mls/hr Documented by: Losartan Potassium (Losartan 50 Mg Tab) 25 mg PO DAILY [facility] Last Admin: 04/28/21 09:10 Dose: 25 mg Documented by: Simvastatin (Simvastatin 20 Mg Tab) 20 mg PO BEDTIME [facility] Last Admin: 04/27/21 20:27 Dose: 20 mg Documented by: Vancomycin HCl (Pharmacy To Dose - Vancomycin) 1 dose .XX ASDIRECTED [facility] - Exam General: Reports: Alert, Oriented, Cooperative HEENT: Reports: Pupils Equal, Pupils Reactive Neck: Reports: Supple, Trachea Midline Lungs: Reports: Clear to Auscultation, Normal Respiratory Effort Cardiovascular: Reports: Regular Rate, Regular Rhythm GI/Abdominal Exam: Normal Bowel Sounds, Soft, Non-Tender Back Exam: Reports: Normal Inspection, Full Range of Motion Skin: Reports: Warm, Dry, Intact. Denies: Rash Wound/Incisions: Reports: Healing Well. Denies: Erythema Neurological: Reports: No New Focal Deficit
== END 2021-04-28 11:55 | disposition home or self-care (01) | DRG 603 ==
LOC: MW.ED 13:51 → MW.MS 15:15
PROVIDERS: ADMIT Internal Medicine; ATTEND Internal Medicine
DX: L03.115 Cellulitis of right lower limb (principal); L03.116 Cellulitis of left lower limb; I10 Essential (primary) hypertension; H54.7 Unspecified visual loss; E78.00 Pure hypercholesterolemia, unspecified; M10.9 Gout, unspecified; E66.9 Obesity, unspecified; Z96.651 Presence of right artificial knee joint; M17.11 Unilateral primary osteoarthritis, right knee; Z20.822 Contact with and (suspected) exposure to COVID-19; Z79.899 Other long term (current) drug therapy; Z86.010 Personal history of colon polyps; Z86.19 Personal history of other infectious and parasitic diseases; Z87.891 Personal history of nicotine dependence; Z68.33 Body mass index [BMI] 33.0-33.9, adult
CPT/HCPCS: 36415; 71045; 71045-26; 76705; 76705-26; 80053; 83605; 85025; 86140; 87040; 93970; 93970-26; 96365; 99284-25; A9270-GY; J0696; J3370; U0002

== ENCOUNTER 2023-06-17 09:06 | Day surgery (SDC) | payer BC ==
[~2023-06-17 09:06] MED LIST changes: -Acetaminophen 1,000 MG in Premix Bag 1 BAG IV SCH; -Famotidine 20 MG/2 ML SDV IVPUSH SCH; -Ketorolac 30 MG/ML SDV IVPUSH SCH; +Lactated Ringers 1,000 ML IV SCH; -Midazolam 1 MG/ML 2 ML SDV ONE; -Ondansetron 4 MG/2 ML SDV ONE; -Propofol 200 MG/20 ML SDV ONE; -Ropivacaine 49.25 ML, Ketorolac 30 MG, EPINEPHrine 0.5 MG, cloNIDine 80 MCG in Sodium C... INJECT SCH; -Scopolamine 1.5 MG Transdermal Patch TRDERM SCH; +Sodium Chloride 0.9% 10 ML Syringe FLUSH PRN; +Sodium Chloride 0.9% 2.5 ML Syringe FLUSH PRN; +Sodium Chloride 0.9% 20 ML SDV IV PRN; -Tranexamic Acid 4,000 MG in Sodium Chloride 0.9% 100 ML IV SCH; -ceFAZolin 2 GM in Premix Bag 1 BAG IV SCH; -diphenhydrAMINE 50 MG/ML SDV ONE; -fentaNYL 100 MCG/2 ML SDV ONE; -oxyCODONE ER 20 MG TAB.ER PO SCH
[2023-06-17] MEDS ORDERED: propofoL 50 ML ONE (10:48)
[2023-06-17 11:04] VITALS: BP 116/73; PULSE 77
== END 2023-06-17 11:30 | disposition home or self-care (01) ==
LOC: MW.SDS 09:06
PROVIDERS: ATTEND Surgery
DX: Z12.11 Encounter for screening for malignant neoplasm of colon (principal); K63.5 Polyp of colon; D12.6 Benign neoplasm of colon, unspecified; N63.0 Unspecified lump in unspecified breast; K42.9 Umbilical hernia without obstruction or gangrene; J44.9 Chronic obstructive pulmonary disease, unspecified; E78.5 Hyperlipidemia, unspecified; R60.0 Localized edema; M10.9 Gout, unspecified; E87.6 Hypokalemia; M17.11 Unilateral primary osteoarthritis, right knee; M25.511 Pain in right shoulder; Z79.899 Other long term (current) drug therapy
CPT/HCPCS: 45378; J2704; J7120